=== PATIENT | male | born 1955 | race Caucasian/White ===

== ENCOUNTER 2024-04-19 16:00 | Emergency (ER) | payer OTHER, SELFPAY ==
[2024-04-19 16:04] VITALS: BP 178/95; PULSE 77; TEMP 36.9; O2SAT 97; BMI 31.6
--- NOTE | 2024-04-19 16:24 | CT_ITS ---
[address] [address] Patient Name: MACKENZIE LOONEY MRN: [id number] date: 1955 Sex: M Assigned Patient Location: ER Current Patient Location: Accession/Order Number: [id number] Exam Date: 04/19/2024 17:40 Report Date: 04/19/2024 20:28 At the request of: YENIFER BARAJAS Procedure: CT abdomen pelvis w con EXAM: CT abdomen pelvis w con , 04/19/2024 HISTORY: umbilical pain h/o hernia not able to reduce COMPARISON: None. TECHNIQUE: CT scan of the abdomen and pelvis was performed following intravenous contrast injection. Coronal and sagittal reconstructions were performed. Dose reduction techniques were achieved by using automated exposure control and/or adjustment of mA and/or kV according to patient size and/or use of iterative reconstruction technique. FINDINGS: Moderate sized umbilical hernia is seen measuring 4 x 2 cm in size with stranding within the fatty tissue which could be due to local inflammation. Recommend clinical correlation. No bowel loops are seen within the umbilical hernia. The liver demonstrates subcentimeter hypodensity in the left lobe, likely representing a cyst or small hemangioma. The liver is otherwise unremarkable. Cholelithiasis. No biliary dilatation. The spleen and both adrenal glands are unremarkable. Mild fatty change in the pancreas. Patent portal venous system. Mild atherosclerosis of the abdominal aorta. Unremarkable IVC. Nonobstructing calculi in the left kidney, the largest in the mid calyx measuring measuring 6 mm. No hydronephrosis or hydroureter. Probable subcentimeter cortical cyst upper pole left kidney. Urinary bladder partially filled. Mild prostatic enlargement. Small left inguinal hernia containing fatty tissue. No bowel loop dilatation or bowel wall thickening. Colonic diverticulosis without diverticulitis. Post appendectomy. Trace free fluid in the peritoneal cavity. No enlarged lymph node in the abdomen, retroperitoneum or the pelvis. The bone windows demonstrate moderate disc disease at L5-S1 level. Scans through the lung bases show minimal dependent atelectasis. CT/CT abdomen pelvis w con IMPRESSION: 1. Moderate sized umbilical hernia measuring 4 x 2 cm in size. 2. Cholelithiasis. 3. Nonobstructing left renal calculi. Mild prostatic enlargement. 4. Colonic diverticulosis without diverticulitis. 5. Mild fatty change in the pancreas. Electronically authenticated by: SHADIA INIGUEZ Date: 04/19/2024 20:28
[2024-04-19] MEDS: ONDANSETRON PF 4 MG/2 ML VIAL IV (16:50)
[2024-04-19] MEDS: KETOROLAC TROMETHAMINE 30 MG/ML VIAL IVP (16:50)
[2024-04-19] MEDS: 0.9 % SODIUM CHLORIDE 1,000 ML 100 ML IV (16:50)
[2024-04-19 17:13] LABS: Basophils Absolute Auto 0.1 10^3/uL (0.0-0.1); Basophils Percent Auto 0.4 % (0.2-2.0); Eosinophils Absolute Auto 0.1 10^3/uL (0.0-0.7); Eosinophils Percent Auto 0.6 % (0.9-7.0); Hematocrit 43.7 % (42.0-54.0); Hemoglobin 14.5 g/dL (14.0-18.0); Immature Granulocytes Abs Auto 0.03 10^3/uL (0.00-0.03); Immature Granulocytes Pct Auto 0.3 % (0.0-0.5); Lymphocytes Percent Auto 7.9 % (20.5-60.0); Mean Corpuscular HGB Conc 33.2 g/dL (29.9-35.2); Mean Corpuscular Hemoglobin 28.5 pg (25.9-34.0); Mean Platelet Volume 9.4 fL (9.5-13.5); Monocytes Absolute Auto 1.1 10^3/uL (0.3-0.8); Neutrophils Absolute Auto 9.8 10^3/uL (1.4-6.5); Neutrophils Percent Auto 81.8 % (43.0-75.0); Platelet Count 245 10^3/uL (150-450); Red Blood Count 5.08 10^6/uL (4.70-6.10); Red Cell Distribution Width 12.4 % (11.0-15.0)
[2024-04-19 17:18] LABS: Bilirubin Urine NEGATIVE (NEGATIVE); Blood Urine NEGATIVE (NEGATIVE); Clarity Urine CLEAR (CLEAR); Color Urine LT. YELLOW (YELLOW); Glucose Urine UA NEGATIVE (NEGATIVE); Ketones Urine NEGATIVE (NEGATIVE); Leukocyte Esterase Urine NEGATIVE (NEGATIVE); Nitrite Urine NEGATIVE (NEGATIVE); Protein Urine NEGATIVE (NEG/TRACE); Urobilinogen Urine 0.2 EU/dL (0.2-1.0)
[2024-04-19 17:21] LABS: Urine Microscopic Indicated NO
[2024-04-19 17:28] LABS: Lactate/Lactic Acid 1.4 mmol/L (0.4-2.0)
[2024-04-19 17:34] LABS: Alanine Aminotransferase 39 U/L (16-63); Albumin Globulin Ratio 1.2; Albumin Level 4.1 g/dL (3.4-5.0); Alkaline Phosphatase 56 U/L (46-116); Anion Gap 12.2; Aspartate Amino Transferase 21 U/L (15-37); BUN Creatinine Ratio 11.7; Calcium 9.5 mg/dL (8.5-10.1); Carbon Dioxide 29.7 mmol/L (21.0-32.0); Chloride 102 mmol/L (98-107); Estimated GFR (African America >60 (>=60); Estimated GFR (Non-African Ame >60 (>=60); Globulin 3.4 g/dL; Glucose 127 mg/dL (74-106); Potassium 3.9 mmol/L (3.5-5.1); Sodium 140 mmol/L (136-145); Total Protein 7.5 g/dL (6.4-8.2); Troponin I High Sensitivity 4.5 pg/mL (4.0-76.1)
[2024-04-19 18:24] VITALS: BP 167/75; PULSE 68; O2SAT 96
--- NOTE | 2024-04-19 19:19 | ED.ABDPAIN1 ---
HPI - Abdominal Pain General Chief Complaint: Abdominal Pain Stated Complaint: ABD PAIN Time Seen by Provider: 04/19/24 16:14 Source: patient Mode of arrival: walk-in Limitations: no limitations History of Present Illness HPI narrative: 68-year-old male presents with chief complaint of diffuse abdominal pain and tenderness. Patient has a umbilical hernia he has had for many years. It is easily reduced. He has diffuse abdominal tenderness. He denies a history of vomiting or nausea. She has just diffuse pain. Abdomen soft nontender to palpation. Patient denies diarrhea fever or chills. She denies a history of difficulty with urination or kidney stones. Related Data Home Medications ?Medication ?Instructions ?Recorded ?Confirmed lisinopril 40 mg tablet 40 mg PO DAILY 04/19/24 04/19/24 metoprolol succinate 50 mg 50 mg PO DAILY 04/19/24 04/19/24 tablet,extended release 24 hr omeprazole 20 mg capsule,delayed 20 mg PO DAILY 04/19/24 04/19/24 release simvastatin 40 mg tablet 40 mg PO DAILY 04/19/24 04/19/24 spironolactone 25 mg tablet 25 mg PO DAILY 04/19/24 04/19/24 Allergies Allergy/AdvReac Type Severity Reaction Status Date / Time Penicillins Allergy Severe Rash Verified 04/19/24 16:07 Review of Systems ROS Narrative All Systems are negative except as noted/marked.All systems reviewed and otherwise negative Exam Narrative Exam Narrative: Nurses note and vital signs reviewed and patient is not hypoxic. General: The patient appears well and in no apparent distress. Patient is resting comfortably on cart. Skin: Warm, dry, no pallor noted. There is no rash noted. Head: Normocephalic, atraumatic Eye: Normal conjunctiva, no drainage, EOMI. PERRL Ears, Nose, Mouth, and Throat: oral mucosa is moist. Nares patent. Mouth without vesicles. Ear canals patent. Tm's without Erythema Cardiovascular: Regular Rate and Rhythm Respiratory: Patient is in no distress, no accessory muscle use, lungs are clear to auscultation, no wheezing, rales or rhonchi Back: non-tender, no CVA tenderness bilaterally to percussion. GI: non strangulated umbilical hernia, easily reduced normal bowel sounds, no tenderness to palpation, no masses appreciated. No rebound, guarding, or rigidity noted. Musculoskeletal: The patient has no evidence of calf tenderness, no pitting edema, symmetrical pulses noted bilaterally Neurological: A&O x4, normal speech Psychiatric: Cooperative Constitutional Vital Signs, click to edit/add: Last Vital Signs Temp 98.6 F 04/19/24 20:28 Pulse 72 04/19/24 20:28 Resp 12 04/19/24 20:28 BP 149/73 H 04/19/24 20:28 Pulse Ox 96 04/19/24 20:28 O2 Del Method Room Air 04/19/24 20:28 Course Vital Signs Vital signs: Vital Signs Temperature 98.4 F 04/19/24 16:04 Pulse Rate 77 04/19/24 16:04 Respiratory Rate 20 04/19/24 16:04 Blood Pressure 178/95 H 04/19/24 16:04 Pulse Oximetry 97 04/19/24 16:04 Oxygen Delivery Method Room Air 04/19/24 16:04 Temperature 98.6 F 04/19/24 20:28 Pulse Rate 72 04/19/24 20:28 Respiratory Rate 12 04/19/24 20:28 Blood Pressure 149/73 H 04/19/24 20:28 Pulse Oximetry 96 04/19/24 20:28 Oxygen Delivery Method Room Air 04/19/24 20:28 MDM - Abdominal Pain MDM Narrative Medical decision making narrative: 68-year-old male presents with chief complaint of diffuse abdominal pain and tenderness. Patient has a umbilical hernia he has had for many years. It is easily reduced. He has diffuse abdominal tenderness. He denies a history of vomiting or nausea. She has just diffuse pain. Abdomen soft nontender to palpation. Patient denies diarrhea fever or chills. She denies a history of difficulty with urination or kidney stones. Presented here chief complaint of diffuse abdominal pain and tenderness. Patient has a known history of umbilical hernia. It was able to be reduced here. He had had difficulty reducing at home upon arrival to the emergency room IV was established patient was given Toradol and Zofran. He did help to alleviate his symptoms. CBC BMP urinalysis were obtained and negative. Patient did have a CT scan with contrast. Length of stay was delayed due to the wait for the radiology reading for the CT scan. CT scan did read umbilical hernia nonobstructed. Clinical coordination for his pain. Patient does state he does golf daily. He may have pulled it while golfing. Patient instructed to use Tylenol and Motrin for pain. He is going to follow-up with general surgery. He does not have an acute surgical abdomen at this time. Reasons to return to the emergency room or surgical emergency were discussed. Patient verbalized understanding agrees with plan of care. Differential Diagnosis Differential diagnosis: Likely abdominal pain, constipation, diverticulitis, gastroenteritis and small bowel obstruction Medical Records Attestation: I reviewed the patient's medical records. Lab Data Attestation: I reviewed the patient's lab results. Labs: Lab Results 04/19/24 04/19/24 Range/Units 16:20 16:25 WBC 12.0 H (4.0-11.0) 10^3/uL RBC 5.08 (4.70-6.10) 10^6/uL Hgb 14.5 (14.0-18.0) g/dL Hct 43.7 (42.0-54.0) % MCV 86.0 (80.0-94.0) fL MCH 28.5 (25.9-34.0) pg MCHC 33.2 (29.9-35.2) g/dL RDW 12.4 (11.0-15.0) % Plt Count 245 (150-450) 10^3/uL MPV 9.4 L (9.5-13.5) fL Neut % (Auto) 81.8 H (43.0-75.0) % Lymph % (Auto) 7.9 L (20.5-60.0) % [place] % (Auto) 9.0 (1.7-12.0) % Eos % (Auto) 0.6 L (0.9-7.0) % Baso % (Auto) 0.4 (0.2-2.0) % Neut # (Auto) 9.8 H (1.4-6.5) 10^3/uL Lymph # (Auto) 1.0 L (1.2-3.8) 10^3/uL [place] # (Auto) 1.1 H (0.3-0.8) 10^3/uL Eos # (Auto) 0.1 (0.0-0.7) 10^3/uL Baso # (Auto) 0.1 (0.0-0.1) 10^3/uL Abs Immat Gran (auto) 0.03 (0.00-0.03) 10^3/uL Imm/Tot Granulo (auto) 0.3 (0.0-0.5) % Sodium 140 (136-145) mmol/L Potassium 3.9 (3.5-5.1) mmol/L Chloride 102 (98-107) mmol/L Carbon Dioxide 29.7 (21.0-32.0) mmol/L Anion Gap 12.2 BUN 13.0 (7.0-18.0) mg/dL Creatinine 1.11 (0.70-1.30) mg/dL Est GFR ( Amer) >60 (>=60) Est GFR (Non-Af Amer) >60 (>=60) BUN/Creatinine Ratio 11.7 Glucose 127 H (74-106) mg/dL Lactate 1.4 (0.4-2.0) mmol/L Calcium 9.5 (8.5-10.1) mg/dL Total Bilirubin 1.0 (0.2-1.0) mg/dL AST 21 (15-37) U/L ALT 39 (16-63) U/L Alkaline Phosphatase 56 (46-116) U/L Troponin I High Sens 4.5 (4.0-76.1) pg/mL Total Protein 7.5 (6.4-8.2) g/dL Albumin 4.1 (3.4-5.0) g/dL Globulin 3.4 g/dL Albumin/Globulin Ratio 1.2 Lipase 17.0 (16.0-77.0) U/L Urine Color Lt. yellow (YELLOW) Urine Clarity Clear (CLEAR) Urine pH 6.0 (5.0-9.0) Ur Specific [place] 1.010 (1.005-1.025) Urine Protein Negative (NEG/TRACE) mg/dL Urine Glucose (UA) Negative (NEGATIVE) mg/dL Urine Ketones Negative (NEGATIVE) mg/dL Urine Occult Blood Negative (NEGATIVE) Urine Nitrite Negative (NEGATIVE) Urine Bilirubin Negative (NEGATIVE) Urine Urobilinogen 0.2 (0.2-1.0) EU/dL Ur Leukocyte Esterase Negative (NEGATIVE) Imaging Data CT scan - abdomen: Radiologist's impression: ITS Impressions Abdomen/Pelvis CT 04/19/24 16:24 IMPRESSION: 1. Moderate sized umbilical hernia measuring 4 x 2 cm in size. 2. Cholelithiasis. 3. Nonobstructing left renal calculi. Mild prostatic enlargement. 4. Colonic diverticulosis without diverticulitis. 5. Mild fatty change in the pancreas. Electronically authenticated by: SHADIA INIGUEZ Date: 04/19/2024 20:28 Discharge Plan Discharge Stand Alone Forms: Portal Instructions Chief Complaint: Abdominal Pain Clinical Impression: Umbilical pain, Umbilical hernia without mention of obstruction or gangrene Patient Disposition: Home, Self-Care Time of Disposition Decision: 20:40 Condition: Good Prescriptions / Home Meds: No Action lisinopril 40 mg tablet 40 mg PO DAILY metoprolol succinate 50 mg tablet extended release 24 hr 50 mg PO DAILY omeprazole 20 mg capsule,delayed release(DR/EC) 20 mg PO DAILY simvastatin 40 mg tablet 40 mg PO DAILY spironolactone 25 mg tablet 25 mg PO DAILY Print Language: Omani Instructions: Umbilical Hernia (ED) Referrals: Lisette Rivera MD [Primary Care Provider] - 1 week Raul Renae MD [Physician] - 1 week
[2024-04-19 20:28] VITALS: BP 149/73; PULSE 72; TEMP 37; O2SAT 96
[2024-04-19] MEDS: MORPHINE SULFATE 2 MG/ML SYRINGE IV (20:50)
== END 2024-04-19 21:05 | disposition home or self-care (01) ==
PROVIDERS: Physician Assistant; Emergency Provider Emergency Medicine; PCP Family Medicine
DX: R10.33 Periumbilical pain (principal); K42.9 Umbilical hernia without obstruction or gangrene
CPT/HCPCS: 36415; 74177; 80053; 81003; 83605; 83690; 84484; 85025; 96374; 96375; 99285; J1885; J2270; J2405; Q9967

== ENCOUNTER 2024-04-24 16:46 | Inpatient (IN) | payer OTHER, SELFPAY ==
[2024-04-24] VITALS (43 sets, daily range): BP systolic 123–194; BP diastolic 65–102; PULSE 77–101; TEMP 37.1; O2SAT 88–97; BMI 31.3; BMI 31.6
--- OUTSIDE RECORDS SUMMARY | 2024-04-24 16:53 | XMS_ITS | CCD ---
Author Organization [facility] Care Team Providers Care Knotter Hand Name Role Phone REQUEST, DR NONE LISTED Attending Unavaila ble REQUEST, NONE LISTED Consulting Unavaila ble REQUEST, NONE LISTED Admitting Unavaila ble EARNEST DIETZ Attending Unavailable MIRELA, EARNEST Consulting Unavailable ROSS, EARNEST Admitting Unavailable CASTILLO, DR MELANI Wyatt Attending Unavailable CASTILLO, DR MELANI Wyatt Consulting Unavailable CASTILLO, DR MELANI Wyatt Admitting Unavailable NILL, Raul Lora Attending Unavailable NILL, Raul Lora Attending Unavailable Allergies Allergy Classification Reported Allergen(s) Allergy Type Date of Onset Reaction(s) Facility Penicillins (antibiotic) (1 source) Penicillins Drug Allergy [address] [facility] Repository (1 source) Penicillins; Translations: [penicillins] Propensity to adverse reactions (disorder) [facility] Repository Results Test Name Value Interpretation Reference Range [facility] L[facility]FILE[facility] 03-20-2021 CHOL-HDL RATIO NORM SEE BELOW Normal [facility] Comment on above: Result Comment: 3.3 - 4.4 LOW RISK 4.4 - 7.1 AVERAGE RISK 7.1 - 11.0 MODERATE RISK >11.0 HIGH RISK Performed By: #### L IPID, PSAD #### [facility] [address], [place] [address] Luis Eduardo Ada Cholesterol [Mass/Vol] 129 mg/dL Normal <=200 [facility] Comment on above: Performed By: #### L IPID, PSAD #### [facility] [address], [place] [address] Luis Eduardo Ada Cholesterol in HDL [Mass/Vol] 40 mg/dL Normal [facility] Comment on above: Performed By: #### L IPID, PSAD #### [facility] [address], [place] [address] Luis Eduardo Ada Cholesterol in LDL [Mass/Vol] 68.4 mg/dL Normal [facility] Comment on above: Performed By: #### L IPID, PSAD #### [facility] [address] [place] [id number] Luis Eduardo Ada Cholesterol.total/C holesterol in HDL [Mass ratio] 3.2 {ratio} Normal [facility] Comment on above: Performed By: #### L IPID, PSAD #### [facility] [address] [place] [id number] Luis Eduardo Ada HDL NORMAL > or = 60 mg/dl - LO W CARDIOVASCULAR RISK <40 mg/dl - HIGH CARDIOVASCULAR RISK Normal [facility] Comment on above: Performed By: #### L IPAUSTYN, PSAD #### [facility] [address] [place] [id number] Luis Eduardo Ada LDL CALC NORMAL SEE BELOW Normal [facility] Comment on above: Result Comment: <100 mg/dl OPTIMAL 100 - 129 mg/dl NEAR OR ABOVE OPTIMAL 130 - 159 mg/dl BORDERLINE HIGH 160 - 189 mg/dl HIGH >190 mg/dl VERY HIGH Performed By: #### L IPID, PSAD #### [facility] [address] [place] [id number] Luis Eduardo Ada Triglyceride [Mass/Vol] 103 mg/dL Normal <=150 [facility] Comment on above: Performed By: #### L IPID, PSAD #### [facility] [address] [place] [id number] Luis Eduardo Ada VLDL CALC 20.6 mg/dL Normal [facility] Comment on above: Performed By: #### L IPID, PSAD #### [facility] [address] [place] [id number] Luis Eduardo Ada Encounters Encounter Date Encounter Type Care Provider Facility Start: 05-20-2024 ambulatory Raul DE LOS SANTOS Facility :[facility] Start: 04-30-2024 ambulatory Raul DE LOS SANTOS Facility :[facility] Start: 04-20-2024 ambulatory Raul DE LOS SANTOS Facility:[facility] Start: 03-20-2021 End: 03-21-[address] MELANI CASTILLO Facility:[facility] Start: 12-29-2020 End: 12-30-2020 ambulatory EARNEST DIETZ Facility:[facility] Start: 12-09-2020 End: 12-10-2020 ambulatory NONE LISTED REQUEST Facility:[facility] Procedures Date Procedure Procedure Detail Performing Clinician Start: 03-20-[address] MADRID L ISTED REQUEST Comment on above: Performed By: #### L IPID, PSAD #### [facility] [address], [place] [address] Luis Eduardo Caballero Payers Date Payer Category Payer Medicare [id number] Self-pay 1955 Unknown [id number] 1955 Unknown [id number] [id number] Unknown [id number] 2.16.84 [id number] Unknown [id number] 2.16.84 [id number] Unknown [id number] 2.16.84 [id number] Summary Purpose Family History No Family History Records FoundNo Family History Records Found Advance Directives No Advanced Directives Records FoundNo Advanced Directives Records Found Additional Source Comments (unrecognized sect ion and content) No Status Records FoundNo Status Records Found INFORMATION SOURCE (unrecogn ized section and content) DATE CREATED AUTHOR 03/21/2021 [facility] DATE CREATED AUTHOR AUTHOR'S ORGANIZ ATION 04/24/2024 [facility] FOR RECORDS PERTAINING TO PATIENTS WHO ARE OR HAVE BEEN ENROLLED IN A CHEMICAL DEPENDENCY/SUBSTANCEABUSE PROGRAM, SOME INFORMATION MAY BE OMITTED. This clinical summary was aggregated from multiple sources. Caution should be exercised in using it in the provision of clinical care. This summary normalizes information from multiple sources, and as a consequence, information in this document may materially change the coding, format and clinical context of patient data. In addition, data may be omitted in some cases. CLINICAL DECISIONS SHOULD BE BASED ON THE PRIMARY CLINICAL RECORDS. [email or web address] provides no warranty or guarantee of the accuracy or completeness of information in this document.
--- NOTE | 2024-04-24 17:01 | ECG_ITS ---
[facility] Test Date: 2024-04-24 Pat Name: MACKENZIE LOONEY Department: Room: - Gender: Male Surgical Clinical Reviewer: : 1955 Requested By: MELANI CASTILLO Order Number: [id number] Reading MD: EMEYL MITCHELL Measurements Intervals [place] Rate: 78 P: 30 KS: 170 QRS: 46 QRSD: 88 T: 44 QT: 354 QTc: 387 Interpretive Statements 1100 Sinus rhythm 9110 normal ECG No previous ECG available for comparison Electronically Signed On 04-24-2024 18:36:04 EDT by EMELY MITCHELL
[2024-04-24] MEDS: ONDANSETRON PF 4 MG/2 ML VIAL IV (17:15)
[2024-04-24] MEDS: KETOROLAC TROMETHAMINE 30 MG/ML VIAL 15 MG IVP (17:15)
[2024-04-24] MEDS: 0.9 % SODIUM CHLORIDE 1,000 ML 999 ML IV (17:15)
[2024-04-24] MEDS: FAMOTIDINE/PF 20 MG/2 ML VIAL IV (17:15)
[2024-04-24 17:20] LABS: Hematocrit 42.9 % (42.0-54.0); Hemoglobin 14.2 g/dL (14.0-18.0); Mean Corpuscular HGB Conc 33.1 g/dL (29.9-35.2); Mean Corpuscular Hemoglobin 28.3 pg (25.9-34.0); Mean Corpuscular Volume 85.5 fL (80.0-94.0); Mean Platelet Volume 9.5 fL (9.5-13.5); Platelet Count 236 10^3/uL (150-450); Red Blood Count 5.02 10^6/uL (4.70-6.10); Red Cell Distribution Width 12.3 % (11.0-15.0); White Blood Count 11.9 10^3/uL (4.0-11.0)
--- NOTE | 2024-04-24 17:24 | ED.GENADUL1 ---
Documented by User: TRES Arora 04/24/24 21:28 HPI HPI - General Adult General Chief complaint: Abdominal Pain Stated complaint: abdominal pain Time Seen by Provider: 04/24/24 16:47 Source: patient Mode of arrival: walk-in History of Present Illness HPI narrative: Patient is a 68-year-old male presents to the ER with concerns of abdominal pain over the last 24 hours. His last meal was at noon. Patient states he has diffuse abdominal pain which he believes is related to his umbilical hernia that he has had for years. Patient states he was recently seen in the ER with a CT scan and had improvement after given IV pain medication. He is awaiting follow-up with his general surgeon on , but they are unable to prescribe him any medication until they see him in person. Patient states he was reluctant to return to the ER but has continued pain, nausea and a couple bouts of vomiting. Patient reports bowel movements have been regular. Denies any blood in his stool but does have hemorrhoids that become irritated from time to time. Patient denies any chest pain or shortness of breath. His pain appears localized to the right upper quadrant and epigastric on bedside evaluation. Patient notes symptoms are worse with standing. Location: Reports abdomen Radiation: Reports abdomen Severity: moderate Quality: Reports aching Pain Consistency: Reports constant Related Data Home Medications ?Medication ?Instructions ?Recorded ?Confirmed lisinopril 40 mg tablet 40 mg PO DAILY 04/19/24 04/19/24 metoprolol succinate 50 mg 50 mg PO DAILY 04/19/24 04/19/24 tablet,extended release 24 hr omeprazole 20 mg capsule,delayed 20 mg PO DAILY 04/19/24 04/19/24 release simvastatin 40 mg tablet 40 mg PO DAILY 04/19/24 04/19/24 spironolactone 25 mg tablet 25 mg PO DAILY 04/19/24 04/19/24 Allergies Allergy/AdvReac Type Severity Reaction Status Date / Time Penicillins Allergy Severe Rash Verified 04/19/24 16:07 Opioid HPI Opioid Management Most Recent Opioid Data: Last Pain Scale 2 04/24/24 18:17 Last ED Pain Assessment 04/24/24 18:17 Last MAR Pain Assessment 04/24/24 17:15 Review of Systems ROS Constitutional Denies: fever or chills Eyes Denies: change in vision Ears, nose, mouth, and throat Denies: throat pain, neck pain or throat swelling Cardiovascular Denies: chest pain, palpitations or edema Respiratory Denies: shortness of breath, cough or wheezing Gastrointestinal Reports: abdominal pain, nausea and vomiting; Denies: coffee grounds in vomit or constipation Genitourinary Denies: painful urination or urinary frequency Musculoskeletal Denies: back pain or neck pain Integumentary/Breast Denies: rash or itching Neurological Denies: headache or numbness in extremities Psychiatric Denies: anxiety or mood swings Exam Narrative Exam Narrative: Nurses notes and vital signs reviewed and patient is not hypoxic. General: The patient appears uncomfortable holding emesis basin. Patient is resting comfortably on cart. Increased pain with position change Skin: Warm, dry, no pallor noted. No evidence of rash Head: Normocephalic, atraumatic Neck: Supple, trachea mid-line, no tenderness, no lymphadenopathy Eye: Pupils are equal, round and reactive to light, EOMI Ears, Nose, Mouth, and Throat: TM are clear, normal light reflex, oral mucosa is moist, no posterior oropharynx erythema or hypertrophy, uvula is mid-line Cardiovascular: Regular Rate and Rhythm Respiratory: Patient is in no distress, no accessory muscle use, lungs are clear to auscultation, no wheezing, rales or rhonchi. Chest Wall: no tenderness Back: non-tender, no CVA tenderness Musculoskeletal: normal ROM, no tenderness, no swelling GI: Normal bowel sounds, notable tenderness to epigastric and right upper quadrant. Positive Donahue sign. Easily reducible umbilical hernia noted without focal tenderness or rigidity. No masses appreciated. No rebound, positive guarding, Neurological: A&O x4 Psychiatric: Cooperative Constitutional Vital Signs, click to edit/add: Last Vital Signs Temp 98.8 F 04/24/24 16:49 Pulse 99 H 04/24/24 21:50 Resp 28 H 04/24/24 21:40 BP 144/69 H 04/24/24 21:30 Pulse Ox 94 L 04/24/24 21:50 O2 Del Method Room Air 04/24/24 19:30 Course Vital Signs Vital signs: Vital Signs Temperature 98.8 F 04/24/24 16:49 Pulse Rate 78 04/24/24 16:49 Respiratory Rate 22 H 04/24/24 16:49 Blood Pressure 168/80 H 04/24/24 16:49 Pulse Oximetry 96 04/24/24 16:49 Oxygen Delivery Method Room Air 04/24/24 16:49 Temperature 98.8 F 04/24/24 16:49 Pulse Rate 99 H 04/24/24 21:50 Respiratory Rate 28 H 04/24/24 21:40 Blood Pressure 144/69 H 04/24/24 21:30 Pulse Oximetry 94 L 04/24/24 21:50 Oxygen Delivery Method Room Air 04/24/24 19:30 Medical Decision Making MDM Narrative Medical decision making narrative: Laid supine, noted to have pain with position change to the abdomen. Patient was placed in Trendelenburg with gentle massage to the chest which was soft, easily reducible and without significant pain. Patient had a more notable pain to the epigastric region and right upper quadrant. Medicated with IV Toradol. Previous CT noted for cholelithiasis. He denies fever. Patient reevaluated, noted pain improved to 2/10 denied the need for any more pain medication. Patient advised we related on his lab results to all return. Patient appears much more comfortable. Labs noted for diffuse elevation of liver enzymes. Will attempt a gallbladder ultrasound given prior cholelithiasis noted on CT scan. Medical Records Medical records reviewed: Yes I reviewed the patient's medical records Medical records narrative: CTA of the abdomen on 04/19/2024 shows a moderate-sized umbilical hernia measuring 4 x 2 cm in size., Cholelithiasis, nonobstructing left renal calculi and mild prostatic enlargement. Patient has colonic diverticulosis without diverticulitis. Mild fatty change in the pancreas. Lab Data Labs: Lab Results 04/24/24 04/24/24 Range/Units 17:00 17:10 WBC 11.9 H (4.0-11.0) 10^3/uL RBC 5.02 (4.70-6.10) 10^6/uL Hgb 14.2 (14.0-18.0) g/dL Hct 42.9 (42.0-54.0) % MCV 85.5 (80.0-94.0) fL MCH 28.3 (25.9-34.0) pg MCHC 33.1 (29.9-35.2) g/dL RDW 12.3 (11.0-15.0) % Plt Count 236 (150-450) 10^3/uL MPV 9.5 (9.5-13.5) fL Seg Neuts % (Manual) 84.0 H (43.0-75.0) Band Neutrophils % 8.0 H (0-5) % Lymphocytes % (Manual) 6.0 L (20.5-60.0) % Monocytes % (Manual) 2.0 (1.7-12.0) % Eosinophils % (Manual) 0.0 L (0.9-7.0) % Basophils % (Manual) 0.0 L (0.2-2.0) % Neutrophils # (Manual) 9.99 H (1.4-6.5) 10^3/uL Band Neutrophils # 1.0 H (0.0-0.3) 10^3/uL Lymphocytes # (Manual) 0.71 L (1.20-3.80) 10^3/uL Monocytes # (Manual) 0.23 L (0.30-0.80) 10^3/uL Eosinophils # (Manual) 0.00 (0.00-0.70) 10^3/uL Basophils # (Manual) 0.00 (0.00-0.10) 10^3/uL Sodium 139 (136-145) mmol/L Potassium 4.3 (3.5-5.1) mmol/L Chloride 100 (98-107) mmol/L Carbon Dioxide 27.3 (21.0-32.0) mmol/L Anion Gap 16.0 BUN 12.0 (7.0-18.0) mg/dL Creatinine 1.04 (0.70-1.30) mg/dL Est GFR ( Amer) >60 (>=60) Est GFR (Non-Af Amer) >60 (>=60) BUN/Creatinine Ratio 11.5 Glucose 118 H (74-106) mg/dL Lactate 1.1 (0.4-2.0) mmol/L Calcium 9.9 (8.5-10.1) mg/dL Total Bilirubin 3.7 H (0.2-1.0) mg/dL AST 1449 H* (15-37) U/L ALT 1609 H* (16-63) U/L Alkaline Phosphatase 250 H (46-116) U/L Troponin I High Sens <4.0 L (4.0-76.1) pg/mL Total Protein 8.2 (6.4-8.2) g/dL Albumin 3.8 (3.4-5.0) g/dL Globulin 4.4 g/dL Albumin/Globulin Ratio 0.9 Lipase 25.0 (16.0-77.0) U/L Urine Color Dk. yellow (YELLOW) Urine Clarity Clear (CLEAR) Urine pH 6.0 (5.0-9.0) Ur Specific [place] 1.025 (1.005-1.025) Urine Protein Negative (NEG/TRACE) mg/dL Urine Glucose (UA) Negative (NEGATIVE) mg/dL Urine Ketones Negative (NEGATIVE) mg/dL Urine Occult Blood Negative (NEGATIVE) Urine Nitrite Negative (NEGATIVE) Urine Bilirubin Moderate A (NEGATIVE) Urine Urobilinogen 1.0 (0.2-1.0) EU/dL Ur Leukocyte Esterase Negative (NEGATIVE) Acetaminophen <2.0 L (10.0-30.0) ug/mL Imaging Data Gallbladder ultrasound: Radiologist's impression: ITS Impressions Chest X-Ray 04/24/24 17:31 IMPRESSION: Atelectasis/scarring right lung base otherwise unremarkable chest x-ray. No infiltrate or edema. Electronically authenticated by: ROSA ORO Date: 04/24/2024 18:32 Upper Quadrant Ultrasound 04/24/24 19:17 IMPRESSION: 1. Cholelithiasis with mild wall thickness could be from cholecystitis, however ultrasound Donahue sign is absent. Recommend clinical correlation. 2. No biliary dilatation. Electronically authenticated by: SHADIA INIGUEZ Date: 04/24/2024 22:25 ECG Data Attestation: I personally reviewed and interpreted this ECG as follows: Interpretation: EKG interpretation: Emergency Department physician interpretation, normal sinus rhythm 78 bpm, no ectopy, no ST segment elevation, normal axis. Discharge Plan Discharge Chief Complaint: Abdominal Pain Clinical Impression: Elevated liver enzymes, Abdominal pain, Acute cholecystitis Patient Disposition: Admitted As Inpatient Time of Disposition Decision: 22:42 Condition: Good Documented by User: Jp Ho MD 04/24/24 22:44 HPI HPI - General Adult General Chief complaint: Abdominal Pain Stated complaint: abdominal pain Time Seen by Provider: 04/24/24 16:47 Related Data Home Medications ?Medication ?Instructions ?Recorded ?Confirmed lisinopril 40 mg tablet 40 mg PO DAILY 04/19/24 04/19/24 metoprolol succinate 50 mg 50 mg PO DAILY 04/19/24 04/19/24 tablet,extended release 24 hr omeprazole 20 mg capsule,delayed 20 mg PO DAILY 04/19/24 04/19/24 release simvastatin 40 mg tablet 40 mg PO DAILY 04/19/24 04/19/24 spironolactone 25 mg tablet 25 mg PO DAILY 04/19/24 04/19/24 Allergies Allergy/AdvReac Type Severity Reaction Status Date / Time Penicillins Allergy Severe Rash Verified 04/19/24 16:07 Opioid HPI Opioid Management Most Recent Opioid Data: Last Pain Scale 2 04/24/24 18:17 Last ED Pain Assessment 04/24/24 18:17 Last MAR Pain Assessment 04/24/24 17:15 Exam Constitutional Vital Signs, click to edit/add: Last Vital Signs Temp 98.8 F 04/24/24 16:49 Pulse 99 H 04/24/24 21:50 Resp 28 H 04/24/24 21:40 BP 144/69 H 04/24/24 21:30 Pulse Ox 94 L 04/24/24 21:50 O2 Del Method Room Air 04/24/24 19:30 Course Vital Signs Vital signs: Vital Signs Temperature 98.8 F 04/24/24 16:49 Pulse Rate 78 04/24/24 16:49 Respiratory Rate 22 H 04/24/24 16:49 Blood Pressure 168/80 H 04/24/24 16:49 Pulse Oximetry 96 04/24/24 16:49 Oxygen Delivery Method Room Air 04/24/24 16:49 Temperature 98.8 F 04/24/24 16:49 Pulse Rate 99 H 04/24/24 21:50 Respiratory Rate 28 H 04/24/24 21:40 Blood Pressure 144/69 H 04/24/24 21:30 Pulse Oximetry 94 L 04/24/24 21:50 Oxygen Delivery Method Room Air 04/24/24 19:30 Medical Decision Making MDM Narrative Medical decision making narrative: Laid supine, noted to have pain with position change to the abdomen. Patient was placed in Trendelenburg with gentle massage to the chest which was soft, easily reducible and without significant pain. Patient had a more notable pain to the epigastric region and right upper quadrant. Medicated with IV Toradol. Previous CT noted for cholelithiasis. He denies fever. Patient reevaluated, noted pain improved to 2/10 denied the need for any more pain medication. Patient advised we related on his lab results to all return. Patient appears much more comfortable. Labs noted for diffuse elevation of liver enzymes. Will attempt a gallbladder ultrasound given prior cholelithiasis noted on CT scan. JK 10:45pm LFTs are elevated and the gallbladder ultrasound shows thickened wall. No evidence of stone in the bile duct system. Case discussed with Dr. Nix and the patient will be admitted here and be given IV antibiotics and pain control. Reevaluation in the morning. Treatment diagnosis and disposition were discussed with the patient and his family. Differential Diagnosis Differential Diagnosis: Acute cholecystitis, pancreatitis, hepatitis Lab Data Lab results reviewed: Yes I reviewed the patient's lab results Labs: Lab Results 04/24/24 04/24/24 Range/Units 17:00 17:10 WBC 11.9 H (4.0-11.0) 10^3/uL RBC 5.02 (4.70-6.10) 10^6/uL Hgb 14.2 (14.0-18.0) g/dL Hct 42.9 (42.0-54.0) % MCV 85.5 (80.0-94.0) fL MCH 28.3 (25.9-34.0) pg MCHC 33.1 (29.9-35.2) g/dL RDW 12.3 (11.0-15.0) % Plt Count 236 (150-450) 10^3/uL MPV 9.5 (9.5-13.5) fL Seg Neuts % (Manual) 84.0 H (43.0-75.0) Band Neutrophils % 8.0 H (0-5) % Lymphocytes % (Manual) 6.0 L (20.5-60.0) % Monocytes % (Manual) 2.0 (1.7-12.0) % Eosinophils % (Manual) 0.0 L (0.9-7.0) % Basophils % (Manual) 0.0 L (0.2-2.0) % Neutrophils # (Manual) 9.99 H (1.4-6.5) 10^3/uL Band Neutrophils # 1.0 H (0.0-0.3) 10^3/uL Lymphocytes # (Manual) 0.71 L (1.20-3.80) 10^3/uL Monocytes # (Manual) 0.23 L (0.30-0.80) 10^3/uL Eosinophils # (Manual) 0.00 (0.00-0.70) 10^3/uL Basophils # (Manual) 0.00 (0.00-0.10) 10^3/uL Sodium 139 (136-145) mmol/L Potassium 4.3 (3.5-5.1) mmol/L Chloride 100 (98-107) mmol/L Carbon Dioxide 27.3 (21.0-32.0) mmol/L Anion Gap 16.0 BUN 12.0 (7.0-18.0) mg/dL Creatinine 1.04 (0.70-1.30) mg/dL Est GFR ( Amer) >60 (>=60) Est GFR (Non-Af Amer) >60 (>=60) BUN/Creatinine Ratio 11.5 Glucose 118 H (74-106) mg/dL Lactate 1.1 (0.4-2.0) mmol/L Calcium 9.9 (8.5-10.1) mg/dL Total Bilirubin 3.7 H (0.2-1.0) mg/dL AST 1449 H* (15-37) U/L ALT 1609 H* (16-63) U/L Alkaline Phosphatase 250 H (46-116) U/L Troponin I High Sens <4.0 L (4.0-76.1) pg/mL Total Protein 8.2 (6.4-8.2) g/dL Albumin 3.8 (3.4-5.0) g/dL Globulin 4.4 g/dL Albumin/Globulin Ratio 0.9 Lipase 25.0 (16.0-77.0) U/L Urine Color Dk. yellow (YELLOW) Urine Clarity Clear (CLEAR) Urine pH 6.0 (5.0-9.0) Ur Specific [place] 1.025 (1.005-1.025) Urine Protein Negative (NEG/TRACE) mg/dL Urine Glucose (UA) Negative (NEGATIVE) mg/dL Urine Ketones Negative (NEGATIVE) mg/dL Urine Occult Blood Negative (NEGATIVE) Urine Nitrite Negative (NEGATIVE) Urine Bilirubin Moderate A (NEGATIVE) Urine Urobilinogen 1.0 (0.2-1.0) EU/dL Ur Leukocyte Esterase Negative (NEGATIVE) Acetaminophen <2.0 L (10.0-30.0) ug/mL Imaging Data Gallbladder ultrasound: Radiologist's impression: ITS Impressions Chest X-Ray 04/24/24 17:31 IMPRESSION: Atelectasis/scarring right lung base otherwise unremarkable chest x-ray. No infiltrate or edema. Electronically authenticated by: ROSA ORO Date: 04/24/2024 18:32 Upper Quadrant Ultrasound 04/24/24 19:17 IMPRESSION: 1. Cholelithiasis with mild wall thickness could be from cholecystitis, however ultrasound Donahue sign is absent. Recommend clinical correlation. 2. No biliary dilatation. Electronically authenticated by: SHADIA INIGUEZ Date: 04/24/2024 22:25 Discharge Plan Discharge Chief Complaint: Abdominal Pain Clinical Impression: Elevated liver enzymes, Abdominal pain, Acute cholecystitis Patient Disposition: Admitted As Inpatient Time of Disposition Decision: 22:42 Condition: Good
--- NOTE | 2024-04-24 17:31 | XR_ITS ---
The [address] [address] Patient Name: MACKENZIE LOONEY MRN: [id number] date: 1955 Sex: M Assigned Patient Location: ER Current Patient Location: ER Accession/Order Number: [id number] Exam Date: 04/24/2024 17:46 Report Date: 04/24/2024 18:32 At the request of: KIARA LOONEY Procedure: XR chest 1V EXAM: XR chest 1V HISTORY: epigastric abdominal pain COMPARISON: CT abdomen pelvis including the lower chest 04/19/2024. TECHNIQUE: AP upright chest x-ray. FINDINGS: Lungs clear except for linear density right lung base most consistent with atelectasis/scarring. No consolidation or edema. Heart size normal for technique and accentuated by magnification. No pleural effusion or pneumothorax. No free air under either diaphragm. XR/XR chest 1V IMPRESSION: Atelectasis/scarring right lung base otherwise unremarkable chest x-ray. No infiltrate or edema. Electronically authenticated by: ROSA ORO Date: 04/24/2024 18:32
[2024-04-24 18:02] LABS: Bilirubin Urine MODERATE (NEGATIVE); Blood Urine NEGATIVE (NEGATIVE); Clarity Urine CLEAR (CLEAR); Color Urine DK. YELLOW (YELLOW); Glucose Urine UA NEGATIVE (NEGATIVE); Ketones Urine NEGATIVE (NEGATIVE); Leukocyte Esterase Urine NEGATIVE (NEGATIVE); Nitrite Urine NEGATIVE (NEGATIVE); Protein Urine NEGATIVE (NEG/TRACE); Specific Gravity Urine 1.025 (1.005-1.025)
[2024-04-24 18:06] LABS: Urine Microscopic Indicated NO
[2024-04-24 18:57] LABS: Lactate/Lactic Acid 1.1 mmol/L (0.4-2.0)
[2024-04-24 19:10] LABS: Albumin Globulin Ratio 0.9; Albumin Level 3.8 g/dL (3.4-5.0); Alkaline Phosphatase 250 U/L (46-116); BUN Creatinine Ratio 11.5; Bilirubin Total 3.7 mg/dL (0.2-1.0); Calcium 9.9 mg/dL (8.5-10.1); Carbon Dioxide 27.3 mmol/L (21.0-32.0); Chloride 100 mmol/L (98-107); Estimated GFR (African America >60 (>=60); Estimated GFR (Non-African Ame >60 (>=60); Globulin 4.4 g/dL; Glucose 118 mg/dL (74-106); Lymphocytes Absolute Manual 0.71 10^3/uL (1.20-3.80); Monocytes Absolute Manual 0.23 10^3/uL (0.30-0.80); Potassium 4.3 mmol/L (3.5-5.1); Segmented Neut Absolute Manual 9.99 10^3/uL (1.4-6.5); Sodium 139 mmol/L (136-145); Total Protein 8.2 g/dL (6.4-8.2); Troponin I High Sensitivity <4.0 pg/mL (4.0-76.1)
[2024-04-24 19:13] LABS: Alanine Aminotransferase 1609 U/L (16-63); Aspartate Amino Transferase 1449 U/L (15-37)
--- NOTE | 2024-04-24 19:17 | US_ITS ---
The [address] [address] Patient Name: MACKENZIE LOONEY MRN: [id number] date: 1955 Sex: M Assigned Patient Location: ER Current Patient Location: ED.MAIN Accession/Order Number: [id number] Exam Date: 04/24/2024 20:00 Report Date: 04/24/2024 22:25 At the request of: KIARA LOONEY Procedure: US right upper quadrant EXAM: US right upper quadrant , 04/24/2024 HISTORY: RUQ pain, elevated liver enzymes COMPARISON: CT scan of the abdomen and pelvis from 04/19/2024. TECHNIQUE: Multiplanar grayscale and color ultrasound imaging of the right upper abdomen was performed. FINDINGS: The liver demonstrates normal echotexture without obvious focal mass lesion. No biliary dilatation. Patent portal vein with hepatopetal flow. The left lobe liver was suboptimally visualized due to overlying bowel gas. The common bile duct measures 6 mm. The gallbladder is well visualized and demonstrates echogenic focus with shadowing consistent with gallstones. Mild echogenic sludge within the gallbladder as well. Borderline gallbladder wall thickening measuring 4 mm. The ultrasound Donahue sign was absent. The right kidney measures 11.5 x 5 x 5.2 cm with normal echotexture. The pancreas was suboptimally visualized due to overlying bowel gas. US/US right upper quadrant IMPRESSION: 1. Cholelithiasis with mild wall thickness could be from cholecystitis, however ultrasound Donahue sign is absent. Recommend clinical correlation. 2. No biliary dilatation. Electronically authenticated by: SHADIA INIGUEZ Date: 04/24/2024 22:25
--- NOTE | 2024-04-24 19:37 | PC.NURSE ---
pt's sp02 consistantly at 88%. 2L NC O2 applied and now spo2 is 95%
[2024-04-24 20:13] LABS: Acetaminophen <2.0 ug/mL (10.0-30.0)
[2024-04-24] MEDS: PIPERACILLIN SODIUM/TAZOBACTAM 3.375 GM in 0.9 % SODIUM CHLORIDE 50 ML IV (23:05)
--- OUTSIDE RECORDS SUMMARY | 2024-04-24 23:34 | XMS_ITS | CCD ---
Author Organization [facility] Care Team Providers Care Credit Authorizer Name Role Phone REQUEST, DR NONE LISTED [...] (1 source) Penicillins Drug Allergy 7 [facility] (1 source) Penicillins; Translations: [penicillins] Propensity to adverse reactions (disorder) [facility] Repository Results Test Name Value Interpretation Reference Range [facility] 03-20-2021 CHOL-HDL RATIO NORM SEE BELOW Normal [facility] Comment on above: Result Comment: 3.3 - 4.4 LOW RISK 4.4 - 7.1 AVERAGE RISK 7.1 - 11.0 MODERATE RISK >11.0 HIGH RISK Performed By: #### L IPID, PSAD #### [facility] [address] [place], [place] [address] Luis Eduardo Ada Cholesterol [Mass/Vol] 129 mg/dL Normal <=200 [facility] Comment on above: Performed By: #### L IPID, PSAD #### [facility] [address] [place], [place] [address] Luis Eduardo Ada Cholesterol in HDL [Mass/Vol] 40 mg/dL Normal [facility] Comment on above: Performed By: #### L IPID, PSAD #### [facility] [address] [place], [place] [address] Luis Eduardo Ada Cholesterol in LDL [Mass/Vol] 68.4 mg/dL Normal [facility] Comment on above: Performed By: #### L IPID, PSAD #### [facility] [address] [place] [id number] Luis Eduardo Ada Cholesterol.total/C holesterol in HDL [Mass ratio] 3.2 {ratio} Normal [facility] Comment on above: Performed By: #### L IPID, PSAD #### [facility] [address] [place] [id number] Luis Eduardo Ada HDL NORMAL > or = 60 mg/dl - LO W CARDIOVASCULAR RISK <40 mg/dl - HIGH CARDIOVASCULAR RISK Normal [facility] Comment on above: Performed By: #### L IPAUSTYN, PSAD #### [facility] [address] [place] [id number] Luis Eduardo Ada LDL CALC NORMAL SEE BELOW Normal [facility] Comment on above: Result Comment: <100 mg/dl OPTIMAL 100 - 129 mg/dl NEAR OR ABOVE OPTIMAL 130 - 159 mg/dl BORDERLINE HIGH 160 - 189 mg/dl HIGH >190 mg/dl VERY HIGH Performed By: #### L IPID, PSAD #### [facility] [address] [place] [id number] Luis Eduardo Ada Triglyceride [Mass/Vol] 103 mg/dL Normal <=150 [facility] Comment on above: Performed By: #### L IPID, PSAD #### [facility] [address] [place] [id number] Luis Eduardo Ada VLDL CALC 20.6 mg/dL Normal [facility] Comment on above: Performed By: #### L IPID, PSAD #### [facility] [address] [place] [id number] Luis Eduardo Ada Encounters Encounter Date Encounter [...] Performed By: #### L IPID, PSAD #### [facility] [address] [place], [place] [address] Luis Eduardo Caballero Payers Date Payer Category Payer Medicare [id number] 1958 Self-pay 1955 Unknown [id number] 1955 Unknown [id number] [id number] Unknown [id number] [id number] Unknown [id number] 2.16.84 [id number] Unknown [id number] [id number] Summary Purpose Family History No Family History Records FoundNo Family History Records Found Advance Directives No Advanced Directives Records FoundNo Advanced Directives Records Found Additional Source Comments (unrecognized sect ion and content) No Status Records FoundNo Status Records Found INFORMATION SOURCE (unrecogn ized section and content) DATE CREATED AUTHOR 03/21/2021 [facility] DATE CREATED AUTHOR AUTHOR'S ORGANIZ ATION 04/24/2024 [facility] [place] FOR RECORDS PERTAINING TO PATIENTS WHO ARE [...] BE BASED ON THE PRIMARY CLINICAL RECORDS. [employer] provides no warranty or guarantee of the accuracy or completeness of information in this document.
[2024-04-24] MEDS: 0.9 % SODIUM CHLORIDE 1,000 ML 100 ML IV (23:50)
[2024-04-25 03:46] VITALS: BP 119/70; PULSE 70; TEMP 36.7; O2SAT 95
--- NOTE | 2024-04-25 05:09 | NM_ITS ---
[address] [address] Patient Name: MACKENZIE LOONEY MRN: [id number] date: 1955 Sex: M Assigned Patient Location: MS Current Patient Location: MS Accession/Order Number: [id number] Exam Date: 04/25/2024 03:00 Report Date: 04/25/2024 19:26 At the request of: PATRICIA CELIS Procedure: NM hepatobiliary wo pharm EXAM: NM hepatobiliary wo pharm HISTORY: Elevated LFFT's; abdominal pain COMPARISON: Right upper quadrant ultrasound 04/24/2024. CT abdomen pelvis 1124 TECHNIQUE: Nuclear medicine biliary HIDA scan without gallbladder stimulation. 6.2 mCi of technetium 99m mebrofenin given IV. Sequential images obtained right upper quadrant for one hour. Delayed images obtained at 2, 3 and 4 hours. FINDINGS: Prompt uptake in the liver. No definite focal liver lesion. No bowel activity seen at 1 hour. Faint bowel activity seen at 2 hours increases slightly at 3 and 4 hours. No gallbladder visualization throughout the exam. AZ/AZ hepatobiliary wo pharm IMPRESSION: 1. Nonvisualization of the gallbladder at 4 hours. In view of the findings on ultrasound, consistent with cholecystitis. 2. Delayed biliary to bowel transit. Electronically authenticated by: ROSA ORO Date: 04/25/2024 19:26
[2024-04-25] MEDS: PIPERACILLIN SODIUM/TAZOBACTAM 3.375 GM in 0.9 % SODIUM CHLORIDE 50 ML IV ×3 (06:10→22:48)
[2024-04-25 07:04] LABS: Basophils Absolute Auto 0.1 10^3/uL (0.0-0.1); Basophils Percent Auto 0.5 % (0.2-2.0); Eosinophils Absolute Auto 0.1 10^3/uL (0.0-0.7); Eosinophils Percent Auto 0.6 % (0.9-7.0); Hematocrit 35.8 % (42.0-54.0); Hemoglobin 11.6 g/dL (14.0-18.0); Immature Granulocytes Abs Auto 0.05 10^3/uL (0.00-0.03); Immature Granulocytes Pct Auto 0.4 % (0.0-0.5); Lymphocytes Absolute Auto 0.7 10^3/uL (1.2-3.8); Lymphocytes Percent Auto 5.7 % (20.5-60.0); Mean Corpuscular HGB Conc 32.4 g/dL (29.9-35.2); Mean Corpuscular Hemoglobin 28.2 pg (25.9-34.0); Mean Corpuscular Volume 86.9 fL (80.0-94.0); Mean Platelet Volume 9.7 fL (9.5-13.5); Monocytes Absolute Auto 1.1 10^3/uL (0.3-0.8); Monocytes Percent Auto 9.2 % (1.7-12.0); Neutrophils Absolute Auto 10.1 10^3/uL (1.4-6.5); Neutrophils Percent Auto 83.6 % (43.0-75.0); Platelet Count 207 10^3/uL (150-450); Red Blood Count 4.12 10^6/uL (4.70-6.10); Red Cell Distribution Width 12.6 % (11.0-15.0)
[2024-04-25 07:21] LABS: INR 1.21; Partial Thromboplastin Time 27.9 sec (22.3-36.2); Prothrombin Time 12.6 sec (9.0-11.6)
[2024-04-25 07:32] LABS: Albumin Globulin Ratio 0.8; Albumin Level 2.8 g/dL (3.4-5.0); Alkaline Phosphatase 197 U/L (46-116); Anion Gap 13.9; BUN Creatinine Ratio 11.7; Bilirubin Total 4.7 mg/dL (0.2-1.0); Calcium 8.5 mg/dL (8.5-10.1); Chloride 104 mmol/L (98-107); Estimated GFR (African America 55 (>=60); Estimated GFR (Non-African Ame 45 (>=60); Globulin 3.4 g/dL; Glucose 105 mg/dL (74-106); Phosphorus 4.8 mg/dL (2.6-4.7); Potassium 3.9 mmol/L (3.5-5.1); Sodium 140 mmol/L (136-145); Total Protein 6.2 g/dL (6.4-8.2)
[2024-04-25 08:00] VITALS: BP 138/74; PULSE 74; TEMP 36.8; O2SAT 94
[2024-04-25 08:24] LABS: Albumin Globulin Ratio 0.8; Albumin Level 2.8 g/dL (3.4-5.0); Alkaline Phosphatase 200 U/L (46-116); Aspartate Amino Transferase 498 U/L (15-37); Bilirubin Total 4.6 mg/dL (0.2-1.0); Globulin 3.6 g/dL; Total Protein 6.4 g/dL (6.4-8.2)
[2024-04-25 08:27] LABS: Alanine Aminotransferase 971 U/L (16-63); Alanine Aminotransferase 992 U/L (16-63); Aspartate Amino Transferase 515 U/L (15-37); Bilirubin Direct 3.9 mg/dL (0.0-0.2)
[2024-04-25] MEDS: ENOXAPARIN SODIUM 40 MG/0.4 ML SYRINGE SUBQ (09:52)
[2024-04-25] MEDS: METOPROLOL SUCCINATE 50 MG TAB.ER.24H PO (09:52)
--- NOTE | 2024-04-25 10:18 | PM.GSCN ---
History of Present Illness Consult details Consult date: 04/25/24 Reason for consult: gallstones Requesting physician: Jp Ho Narrative: Mackenzie Wood is a 68-year-old male who re-presented to the ED after having been seen 5 days prior with abdominal pain thought to be secondary to an umbilical hernia. All of his LFTs were normal as well as his other lab work 5 days ago but he re-presented with complaints of abdominal pain and was found have elevated LFTs with transaminases over 1200 and an elevated bilirubin of 3.6 and alkaline phosphatase of 250. He had a CT scan of the abdomen and pelvis which showed gallstones and an umbilical hernia about 4-5 cm in size. He was sent home 5 days ago re-presented and an ultrasound was done and shows cholelithiasis with sludge and no evidence of common bile duct stone on either study and mild gallbladder wall thickening. He was seen this morning and states that his abdominal pain has improved since successful reduction of his umbilical hernia in the ER yesterday. He states he has had this umbilical hernia for over eight years, and he has an appointment with a general surgeon this for evaluation of elective umbilical hernia repair. He states he has not had food today in preparation for a CCK/HIDA scan. He notes feeling bloated today and states his last bowel movement was yesterday, stating he had three, which is more than his usual one per day. He states he has hemorrhoids, which have not currently been bothering him. He has not had nausea or vomiting since yesterday. He states he and his provide 24/7 care for their son, who has a TBI. 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 He is in contact with his family about [place] [address] CT Scan Report Signed Patient: MACKENZIE WOOD MR#: [id number] : 1955 Acct:[id number] Age/Sex: 68 / M ADM Date: 04/19/24 Loc: ER Attending Dr: Ordering Physician: Mechelle Barajas Date of Service: 04/19/24 Procedure(s): CT abdomen pelvis w con Accession Number(s): [id number] cc: Lisette Rivera M.D.~ [facility] [place] [id number] Patient Name: MACKENZIE WOOD MRN: [id number] date: 1955 Sex: M Assigned Patient Location: ER Current Patient Location: ER Accession/Order Number: [id number] Exam Date: 04/19/2024 17:40 Report Date: 04/19/2024 20:28 At the request of: MECHELLE BARAJAS Procedure: CT abdomen pelvis w con EXAM: CT abdomen pelvis w con , 04/19/2024 HISTORY: umbilical pain h/o hernia not able to reduce COMPARISON: None. TECHNIQUE: CT scan of the abdomen and pelvis was performed following intravenous contrast injection. Coronal and sagittal reconstructions were performed. Dose reduction techniques were achieved by using automated exposure control and/or adjustment of mA and/or kV according to patient size and/or use of iterative reconstruction technique. FINDINGS: Moderate sized umbilical hernia is seen measuring 4 x 2 cm in size with stranding within the fatty tissue which could be due to local inflammation. Recommend clinical correlation. No bowel loops are seen within the umbilical hernia. The liver demonstrates subcentimeter hypodensity in the left lobe, likely representing a cyst or small hemangioma. The liver is otherwise unremarkable. Cholelithiasis. No biliary dilatation. The spleen and both adrenal glands are unremarkable. Mild fatty change in the pancreas. Patent portal venous system. Mild atherosclerosis of the abdominal aorta. Unremarkable IVC. Nonobstructing calculi in the left kidney, the largest in the mid calyx measuring measuring 6 mm. No hydronephrosis or hydroureter. Probable subcentimeter cortical cyst upper pole left kidney. Urinary bladder partially filled. Mild prostatic enlargement. Small left inguinal hernia containing fatty tissue. No bowel loop dilatation or bowel wall thickening. Colonic diverticulosis without diverticulitis. Post appendectomy. Trace free fluid in the peritoneal cavity. No enlarged lymph node in the abdomen, retroperitoneum or the pelvis. The bone windows demonstrate moderate disc disease at L5-S1 level. Scans through the lung bases show minimal dependent atelectasis. CT/CT abdomen pelvis w con IMPRESSION: 1. Moderate sized umbilical hernia measuring 4 x 2 cm in size. 2. Cholelithiasis. 3. Nonobstructing left renal calculi. Mild prostatic enlargement. 4. Colonic diverticulosis without diverticulitis. 5. Mild fatty change in the pancreas. Electronically authenticated by: LAVELL SONI Date: 04/19/2024 20:28 Dictated By: Lavell Soni M.D. Signed By: 04/19/242030 [address] [address] Ultrasound Report Signed Patient: MACKENZIE WOOD MR#: [id number] : 1955 Acct:[id number] Age/Sex: 68 / M ADM Date: 04/24/24 Loc: ER Attending Dr: Ordering Physician: Kiara Wood Date of Service: 04/24/24 Procedure(s): US right upper quadrant Accession Number(s): [id number] cc: Lisette Rivera M.D.; Kiara Wood~ [facility] [place] [id number] Patient Name: MACKENZIE WOOD MRN: [facility]:[id number] date: 1955 Sex: M Assigned Patient Location: ER Current Patient Location: ED.MAIN Accession/Order Number: [id number] Exam Date: 04/24/2024 20:00 Report Date: 04/24/2024 22:25 At the request of: KIARA WOOD Procedure: US right upper quadrant EXAM: US right upper quadrant , 04/24/2024 HISTORY: RUQ pain, elevated liver enzymes COMPARISON: CT scan of the abdomen and pelvis from 04/19/2024. TECHNIQUE: Multiplanar grayscale and color ultrasound imaging of the right upper abdomen was performed. FINDINGS: The liver demonstrates normal echotexture without obvious focal mass lesion. No biliary dilatation. Patent portal vein with hepatopetal flow. The left lobe liver was suboptimally visualized due to overlying bowel gas. The common bile duct measures 6 mm. The gallbladder is well visualized and demonstrates echogenic focus with shadowing consistent with gallstones. Mild echogenic sludge within the gallbladder as well. Borderline gallbladder wall thickening measuring 4 mm. The ultrasound Donahue sign was absent. The right kidney measures 11.5 x 5 x 5.2 cm with normal echotexture. The pancreas was suboptimally visualized due to overlying bowel gas. US/US right upper quadrant IMPRESSION: 1. Cholelithiasis with mild wall thickness could be from cholecystitis, however ultrasound Donahue sign is absent. Recommend clinical correlation. 2. No biliary dilatation. Electronically authenticated by: LAVELL SONI Date: 04/24/2024 22:25 Dictated By: Lavell Soni M.D. Signed By: 04/24/242226 DD/ 24 TD/TT: Collections Clerk: Review of Systems ROS Status of ROS 10 or more systems reviewed and unremarkable except as noted in history and below Constitutional Denies: fever or chills Cardiovascular Denies: chest pain Respiratory Denies: shortness of breath Gastrointestinal Denies: nausea, vomiting or diarrhea Integumentary/Breast Denies: rash or itching PFSH [facility] Medical History (Updated 04/25/24 @ 15:24 by Shaikh Lachelle MD) HTN (hypertension) ?I10 - Essential (primary) hypertension (ICD-10) HLD (hyperlipidemia) ?E78.5 - Hyperlipidemia, unspecified (ICD-10) Social History (Updated 04/25/24 @ 15:27 by Shaikh Lachelle MD) Within the past year, how often did you have a drink containing alcohol: monthly or less Within the past year, how many standard drinks containing alcohol did you have on a typical day: 1 or 2 Within the past year, how often did you have six or more drinks on one occasion: never Total score: 0 Score interpretation: A score less than 4 is consistent with normal alcohol consumption. Smoking status: Never smoker Non-prescribed substance use: denies use Highest level of school completed/degree received: high school graduate Meds Home Medications and Allergies Home Medications ?Medication ?Instructions ?Recorded ?Confirmed ?Type lisinopril 40 mg tablet 40 mg PO DAILY 04/19/24 04/25/24 History metoprolol succinate 50 mg 50 mg PO DAILY 04/19/24 04/25/24 History tablet,extended release 24 hr omeprazole 20 mg capsule,delayed 20 mg PO DAILY 04/19/24 04/25/24 History release simvastatin 40 mg tablet 40 mg PO DAILY 04/19/24 04/25/24 History spironolactone 25 mg tablet 25 mg PO DAILY 04/19/24 04/25/24 History Allergies Allergy/AdvReac Type Severity Reaction Status Date / Time Penicillins Allergy Severe Rash Verified 04/19/24 16:07 Exam Constitutional Vital Signs, click to edit/add: Last Vital Signs Temp 98.2 F 04/25/24 08:00 Pulse 74 04/25/24 08:00 Resp 18 04/25/24 03:46 BP 138/74 04/25/24 08:00 Pulse Ox 94 L 04/25/24 08:00 O2 Del Method Nasal Cannula 04/25/24 08:00 O2 Flow Rate 2 04/25/24 08:00 Documenting provider has reviewed patient's vital signs: yes Common normals: no apparent distress, average body habitus, healthy appearing, alert and well nourished General appearance: cooperative and comfortable HENRI Common normals: normocephalic, head/scalp atraumatic, hearing grossly normal bilaterally, external ears normal and external nose normal Chest Common normals: inspection of chest normal Respiratory Common normals: normal respiratory effort and clear to auscultation bilaterally Cardio Common normals: regular rate, regular rhythm, S1 normal heart sound, S2 normal heart sound and no murmurs GI Common normals: Normal to inspection, nondistended, normoactive bowel sounds present Inspection: normal to inspection and abdominal distension (mild) Auscultation: normoactive bowel sounds Palpation: soft, tender (Patient wincing during palpation of the RUQ. ) Details: RUQ, no hepatosplenomegaly and hernia (reducible umbilical hernia roughly 4 cm by 2 cm) umbilical; no guarding and not rigid Percussion: tympanic to percussion Extremity Common normals: normal to inspection and no clubbing, cyanosis or edema Neuro Common normals: moves all extremities and no focal motor deficits Results Labs Labs: Abnormal lab results 04/24/24 04/24/24 04/25/24 Range/Units 17:00 17:10 06:11 WBC 11.9 H 12.0 H (4.0-11.0) 10^3/uL RBC 4.12 L (4.70-6.10) 10^6/uL Hgb 11.6 L (14.0-18.0) g/dL Hct 35.8 L (42.0-54.0) % Neut % (Auto) 83.6 H (43.0-75.0) % Lymph % (Auto) 5.7 L (20.5-60.0) % Eos % (Auto) 0.6 L (0.9-7.0) % Neut # (Auto) 10.1 H (1.4-6.5) 10^3/uL Lymph # (Auto) 0.7 L (1.2-3.8) 10^3/uL [place] # (Auto) 1.1 H (0.3-0.8) 10^3/uL Abs Immat Gran (auto) 0.05 H (0.00-0.03) 10^3/uL Seg Neuts % (Manual) 84.0 H (43.0-75.0) Band Neutrophils % 8.0 H (0-5) % Lymphocytes % (Manual) 6.0 L (20.5-60.0) % Eosinophils % (Manual) 0.0 L (0.9-7.0) % Basophils % (Manual) 0.0 L (0.2-2.0) % Neutrophils # (Manual) 9.99 H (1.4-6.5) 10^3/uL Band Neutrophils # 1.0 H (0.0-0.3) 10^3/uL Lymphocytes # (Manual) 0.71 L (1.20-3.80) 10^3/uL Monocytes # (Manual) 0.23 L (0.30-0.80) 10^3/uL PT 12.6 H (9.0-11.6) sec Creatinine 1.54 H (0.70-1.30) mg/dL Est GFR ( Amer) 55 L (>=60) Est GFR (Non-Af Amer) 45 L (>=60) Glucose 118 H (74-106) mg/dL Phosphorus 4.8 H (2.6-4.7) mg/dL Total Bilirubin 3.7 H 4.7 H (0.2-1.0) mg/dL Direct Bilirubin (0.0-0.2) mg/dL AST 1449 H* (15-37) U/L ALT 1609 H* (16-63) U/L Alkaline Phosphatase 250 H (46-116) U/L Troponin I High Sens <4.0 L (4.0-76.1) pg/mL Total Protein (6.4-8.2) g/dL Albumin (3.4-5.0) g/dL Urine Bilirubin Moderate A (NEGATIVE) Acetaminophen <2.0 L (10.0-30.0) ug/mL 04/25/24 04/25/24 04/25/24 Range/Units 06:11 06:11 06:11 WBC (4.0-11.0) 10^3/uL RBC (4.70-6.10) 10^6/uL Hgb (14.0-18.0) g/dL Hct (42.0-54.0) % Neut % (Auto) (43.0-75.0) % Lymph % (Auto) (20.5-60.0) % Eos % (Auto) (0.9-7.0) % Neut # (Auto) (1.4-6.5) 10^3/uL Lymph # (Auto) (1.2-3.8) 10^3/uL [place] # (Auto) (0.3-0.8) 10^3/uL Abs Immat Gran (auto) (0.00-0.03) 10^3/uL Seg Neuts % (Manual) (43.0-75.0) Band Neutrophils % (0-5) % Lymphocytes % (Manual) (20.5-60.0) % Eosinophils % (Manual) (0.9-7.0) % Basophils % (Manual) (0.2-2.0) % Neutrophils # (Manual) (1.4-6.5) 10^3/uL Band Neutrophils # (0.0-0.3) 10^3/uL Lymphocytes # (Manual) (1.20-3.80) 10^3/uL Monocytes # (Manual) (0.30-0.80) 10^3/uL PT (9.0-11.6) sec Creatinine (0.70-1.30) mg/dL Est GFR ( Amer) (>=60) Est GFR (Non-Af Amer) (>=60) Glucose (74-106) mg/dL Phosphorus (2.6-4.7) mg/dL Total Bilirubin 4.6 H (0.2-1.0) mg/dL Direct Bilirubin 3.9 H* (0.0-0.2) mg/dL AST 515 H* 498 H (15-37) U/L ALT 971 H* 992 H* (16-63) U/L Alkaline Phosphatase 197 H (46-116) U/L Troponin I High Sens (4.0-76.1) pg/mL Total Protein (6.4-8.2) g/dL Albumin (3.4-5.0) g/dL Urine Bilirubin (NEGATIVE) Acetaminophen (10.0-30.0) ug/mL 04/25/24 04/25/24 Range/Units 06:11 06:11 WBC (4.0-11.0) 10^3/uL RBC (4.70-6.10) 10^6/uL Hgb (14.0-18.0) g/dL Hct (42.0-54.0) % Neut % (Auto) (43.0-75.0) % Lymph % (Auto) (20.5-60.0) % Eos % (Auto) (0.9-7.0) % Neut # (Auto) (1.4-6.5) 10^3/uL Lymph # (Auto) (1.2-3.8) 10^3/uL Summit # (Auto) (0.3-0.8) 10^3/uL Abs Immat Gran (auto) (0.00-0.03) 10^3/uL Seg Neuts % (Manual) (43.0-75.0) Band Neutrophils % (0-5) % Lymphocytes % (Manual) (20.5-60.0) % Eosinophils % (Manual) (0.9-7.0) % Basophils % (Manual) (0.2-2.0) % Neutrophils # (Manual) (1.4-6.5) 10^3/uL Band Neutrophils # (0.0-0.3) 10^3/uL Lymphocytes # (Manual) (1.20-3.80) 10^3/uL Monocytes # (Manual) (0.30-0.80) 10^3/uL PT (9.0-11.6) sec Creatinine (0.70-1.30) mg/dL Est GFR ( Amer) (>=60) Est GFR (Non-Af Amer) (>=60) Glucose (74-106) mg/dL Phosphorus (2.6-4.7) mg/dL Total Bilirubin (0.2-1.0) mg/dL Direct Bilirubin (0.0-0.2) mg/dL AST (15-37) U/L ALT (16-63) U/L Alkaline Phosphatase 200 H (46-116) U/L Troponin I High Sens (4.0-76.1) pg/mL Total Protein 6.2 L (6.4-8.2) g/dL Albumin 2.8 L 2.8 L (3.4-5.0) g/dL Urine Bilirubin (NEGATIVE) Acetaminophen (10.0-30.0) ug/mL Diabetes panel 04/24/24 04/25/24 04/25/24 Range/Units 17:00 06:11 06:11 Sodium 139 140 (136-145) mmol/L Potassium 4.3 3.9 (3.5-5.1) mmol/L Chloride 100 104 (98-107) mmol/L Carbon Dioxide 27.3 26.0 (21.0-32.0) mmol/L BUN 12.0 18.0 (7.0-18.0) mg/dL Creatinine 1.04 1.54 H (0.70-1.30) mg/dL Glucose 118 H 105 (74-106) mg/dL Calcium 9.9 8.5 (8.5-10.1) mg/dL AST 1449 H* 515 H* 498 H (15-37) U/L ALT 1609 H* 971 H* (16-63) U/L Alkaline Phosphatase 250 H (46-116) U/L Total Protein 8.2 (6.4-8.2) g/dL Albumin 3.8 (3.4-5.0) g/dL 04/25/24 04/25/24 04/25/24 Range/Units 06:11 06:11 06:11 Sodium (136-145) mmol/L Potassium (3.5-5.1) mmol/L Chloride (98-107) mmol/L Carbon Dioxide (21.0-32.0) mmol/L BUN (7.0-18.0) mg/dL Creatinine (0.70-1.30) mg/dL Glucose (74-106) mg/dL Calcium (8.5-10.1) mg/dL AST (15-37) U/L ALT 992 H* (16-63) U/L Alkaline Phosphatase 197 H 200 H (46-116) U/L Total Protein 6.2 L 6.4 (6.4-8.2) g/dL Albumin 2.8 L (3.4-5.0) g/dL 04/25/24 Range/Units 06:11 Sodium (136-145) mmol/L Potassium (3.5-5.1) mmol/L Chloride (98-107) mmol/L Carbon Dioxide (21.0-32.0) mmol/L BUN (7.0-18.0) mg/dL Creatinine (0.70-1.30) mg/dL Glucose (74-106) mg/dL Calcium (8.5-10.1) mg/dL AST (15-37) U/L ALT (16-63) U/L Alkaline Phosphatase (46-116) U/L Total Protein (6.4-8.2) g/dL Albumin 2.8 L (3.4-5.0) g/dL Calcium panel 04/24/24 04/25/24 04/25/24 Range/Units 17:00 06:11 06:11 Calcium 9.9 8.5 (8.5-10.1) mg/dL Phosphorus 4.8 H (2.6-4.7) mg/dL Albumin 3.8 2.8 L 2.8 L (3.4-5.0) g/dL Pituitary panel 04/24/24 04/25/24 Range/Units 17:00 06:11 Sodium 139 140 (136-145) mmol/L Potassium 4.3 3.9 (3.5-5.1) mmol/L Chloride 100 104 (98-107) mmol/L Carbon Dioxide 27.3 26.0 (21.0-32.0) mmol/L BUN 12.0 18.0 (7.0-18.0) mg/dL Creatinine 1.04 1.54 H (0.70-1.30) mg/dL Glucose 118 H 105 (74-106) mg/dL Calcium 9.9 8.5 (8.5-10.1) mg/dL Adrenal panel 04/24/24 04/25/24 04/25/24 Range/Units 17:00 06:11 06:11 Sodium 139 140 (136-145) mmol/L Potassium 4.3 3.9 (3.5-5.1) mmol/L Chloride 100 104 (98-107) mmol/L Carbon Dioxide 27.3 26.0 (21.0-32.0) mmol/L BUN 12.0 18.0 (7.0-18.0) mg/dL Creatinine 1.04 1.54 H (0.70-1.30) mg/dL Glucose 118 H 105 (74-106) mg/dL Calcium 9.9 8.5 (8.5-10.1) mg/dL Total Bilirubin 3.7 H 4.7 H 4.6 H (0.2-1.0) mg/dL AST 1449 H* 515 H* (15-37) U/L ALT 1609 H* (16-63) U/L Alkaline Phosphatase 250 H (46-116) U/L Total Protein 8.2 (6.4-8.2) g/dL Albumin 3.8 (3.4-5.0) g/dL 04/25/24 04/25/24 04/25/24 Range/Units 06:11 06:11 06:11 Sodium (136-145) mmol/L Potassium (3.5-5.1) mmol/L Chloride (98-107) mmol/L Carbon Dioxide (21.0-32.0) mmol/L BUN (7.0-18.0) mg/dL Creatinine (0.70-1.30) mg/dL Glucose (74-106) mg/dL Calcium (8.5-10.1) mg/dL Total Bilirubin (0.2-1.0) mg/dL AST 498 H (15-37) U/L ALT 971 H* 992 H* (16-63) U/L Alkaline Phosphatase 197 H 200 H (46-116) U/L Total Protein 6.2 L (6.4-8.2) g/dL Albumin (3.4-5.0) g/dL 04/25/24 04/25/24 Range/Units 06:11 06:11 Sodium (136-145) mmol/L Potassium (3.5-5.1) mmol/L Chloride (98-107) mmol/L Carbon Dioxide (21.0-32.0) mmol/L BUN (7.0-18.0) mg/dL Creatinine (0.70-1.30) mg/dL Glucose (74-106) mg/dL Calcium (8.5-10.1) mg/dL Total Bilirubin (0.2-1.0) mg/dL AST (15-37) U/L ALT (16-63) U/L Alkaline Phosphatase (46-116) U/L Total Protein 6.4 (6.4-8.2) g/dL Albumin 2.8 L 2.8 L (3.4-5.0) g/dL All other labs normal. Imaging Abdomen CT scan report/results: report reviewed Abdominal ultrasound report/results: report reviewed Additional studies: Pending CCK/HIDA study. Assessment and Plan Assessment and Plan (1) Acute cholecystitis: Assessment and Plan: CCK/HIDA ordered to further assess biliary tree. Consider laparoscopic cholecystectomy. (2) Elevated liver enzymes: Assessment and Plan: Today, AST above 400, ALT above 900, and alk phos below 200 have all slightly improved since admission. Prolonged PT 12.6 and increased total bilirubin 3.7 yesterday->4.6 today. Continue to monitor daily. Continue IV fluids. (3) Umbilical hernia without mention of obstruction or gangrene: Assessment and Plan: Reducible umbilical hernia. Patient states he has outpatient appointment with his general surgeon on for evaluation. Qualifiers: Obstruction and gangrene presence: without obstruction or gangrene Qualified Code(s): K42.9 - Umbilical hernia without obstruction or gangrene Plan Evaluate CCK/HIDA scan. Consider ordering hepatitis panel, laparoscopic cholecystectomy vs consult GI.
[2024-04-25] MEDS: 0.9 % SODIUM CHLORIDE 1,000 ML 100 ML IV (10:31)
[2024-04-25 11:02] VITALS: O2SAT 92
--- NOTE | 2024-04-25 15:22 | PM.HP ---
HPI H&P: HPI History of Present Illness Chief complaint: abdominal pain ACUTE CHOLECYSTITIS Narrative: 68-year-old male presented to ER last night with generalized abdominal pain, nausea, inability to tolerate oral diet, vomiting. He was seen about a week ago for similar abdominal pain and was found to have umbilical hernia and instructed to follow-up with PCP as outpatient since his abdominal pain had resolved in ED. Patient has chronic umbilical hernia for years but for past 1 year it has become intermittently painful. Supposed to follow-up with general surgery as outpatient but developed acute/severe/persistent/intractable abdominal pain with abdominal distention and came to ED last night for further evaluation. After initial management in ED, and laying down his abdominal pain resolved and he could feel that his umbilical hernia had become soft and not painful. However he was found to have significantly elevated AST/ALT/alk phos and bilirubin levels that were previously normal about a week ago. Patient did not have a new CT abdomen pelvis this admission but had an ultrasound abdomen that showed gallbladder wall thickening but negative Donahue sign. He is kept n.p.o. and was evaluated by general surgery who evaluated and ordered a HIDA scan for the patient. Patient reports that he is feeling better and has minimal to no abdominal pain but is still feeling nauseous and has anorexia. Opioid HPI Opioid Management Most Recent Pain and Opioid Data: Last Pain Scale 2 04/24/24 23:11 Last Pain Assessment 04/25/24 15:00 Last ED Pain Assessment 04/24/24 23:11 Last MAR Pain Assessment 04/24/24 17:15 Last ORT Total Score 0 04/24/24 23:50 Last ORT Risk Category Low Risk 04/24/24 23:50 Review of Systems ROS Status of ROS 10 or more systems reviewed and unremarkable except as noted in history and below [facility] Medical History (Updated 04/25/24 @ 15:24 by Shaikh Lachelle MD) HTN (hypertension) ?I10 - Essential (primary) hypertension (ICD-10) HLD (hyperlipidemia) ?E78.5 - Hyperlipidemia, unspecified (ICD-10) Social History (Updated 04/25/24 @ 15:27 by Shaikh Lachelle MD) Within the past year, how often did you have a drink containing alcohol: monthly or less Within the past year, how many standard drinks containing alcohol did you have on a typical day: 1 or 2 Within the past year, how often did you have six or more drinks on one occasion: never Total score: 0 Score interpretation: A score less than 4 is consistent with normal alcohol consumption. Smoking status: Never smoker Non-prescribed substance use: denies use Highest level of school completed/degree received: high school graduate Meds Home Medications and Allergies Home Medications ?Medication ?Instructions ?Recorded ?Confirmed ?Type lisinopril 40 mg tablet 40 mg PO DAILY 04/19/24 04/19/24 History metoprolol succinate 50 mg 50 mg PO DAILY 04/19/24 04/19/24 History tablet,extended release 24 hr omeprazole 20 mg capsule,delayed 20 mg PO DAILY 04/19/24 04/19/24 History release simvastatin 40 mg tablet 40 mg PO DAILY 04/19/24 04/19/24 History spironolactone 25 mg tablet 25 mg PO DAILY 04/19/24 04/19/24 History Allergies Allergy/AdvReac Type Severity Reaction Status Date / Time Penicillins Allergy Severe Rash Verified 04/19/24 16:07 Exam Constitutional Vital Signs, click to edit/add: Last Vital Signs Temp 98.2 F 04/25/24 08:00 Pulse 74 04/25/24 08:00 Resp 18 04/25/24 03:46 BP 138/74 04/25/24 08:00 Pulse Ox 92 L 04/25/24 11:02 O2 Del Method Room Air 04/25/24 11:02 O2 Flow Rate 2 04/25/24 08:00 Documenting provider has reviewed patient's vital signs: yes Common normals: no apparent distress and oriented x3 General appearance: cooperative [facility] Common normals: normocephalic and head/scalp atraumatic Head and scalp: normocephalic and atraumatic Eye Common normals: PERRL and EOMs intact bilaterally Conjunctiva: conjunctiva abnormal bilateral conjunctival icterus Respiratory Common normals: normal respiratory effort and clear to auscultation bilaterally Effort & inspection: able to speak in complete sentences Auscultation: clear to auscultation bilaterally Cardio Common normals: regular rate, S1 normal heart sound and S2 normal heart sound Rate: regular rate Heart sounds: S1 normal and S2 normal GI Common normals: soft to palpation, non-tender and no hepatosplenomegaly Palpation: hernia umbilical (soft, reducible) Extremity Common normals: no clubbing, cyanosis or edema Neuro Common normals: oriented x3, moves all extremities and no focal motor deficits Psych Common normals: mental status grossly normal, denies hallucinations, denies homicidal ideation and denies suicidal ideation Results Labs Labs: Short CBC 04/24/24 04/25/24 Range/Units 17:00 06:11 WBC 11.9 H 12.0 H (4.0-11.0) 10^3/uL Hgb 14.2 11.6 L (14.0-18.0) g/dL Hct 42.9 35.8 L (42.0-54.0) % Plt Count 236 207 (150-450) 10^3/uL BMP 04/24/24 04/25/24 17:00 06:11 Sodium 139 140 Potassium 4.3 3.9 Chloride 100 104 Carbon Dioxide 27.3 26.0 BUN 12.0 18.0 Creatinine 1.04 1.54 H Glucose 118 H 105 Calcium 9.9 8.5 Liver Function 04/24/24 04/25/24 04/25/24 Range/Units 17:00 06:11 06:11 Total Bilirubin 3.7 H 4.7 H 4.6 H (0.2-1.0) mg/dL Direct Bilirubin 3.9 H* (0.0-0.2) mg/dL AST 1449 H* 515 H* (15-37) U/L ALT 1609 H* (16-63) U/L Alkaline Phosphatase 250 H (46-116) U/L Albumin 3.8 (3.4-5.0) g/dL 04/25/24 04/25/24 04/25/24 Range/Units 06:11 06:11 06:11 Total Bilirubin (0.2-1.0) mg/dL Direct Bilirubin (0.0-0.2) mg/dL AST 498 H (15-37) U/L ALT 971 H* 992 H* (16-63) U/L Alkaline Phosphatase 197 H 200 H (46-116) U/L Albumin 2.8 L (3.4-5.0) g/dL 04/25/24 Range/Units 06:11 Total Bilirubin (0.2-1.0) mg/dL Direct Bilirubin (0.0-0.2) mg/dL AST (15-37) U/L ALT (16-63) U/L Alkaline Phosphatase (46-116) U/L Albumin 2.8 L (3.4-5.0) g/dL Urine 04/24/24 Range/Units 17:10 Urine Color Dk. yellow (YELLOW) Urine Clarity Clear (CLEAR) Urine pH 6.0 (5.0-9.0) Ur Specific [place] 1.025 (1.005-1.025) Urine Protein Negative (NEG/TRACE) mg/dL Urine Glucose (UA) Negative (NEGATIVE) mg/dL Assessment and Plan Assessment and Plan (1) Acute cholecystitis: Assessment and Plan: On IV Zosyn. Pain is well-controlled and currently patient is pain-free. HIDA scan is pending. General surgery on board. Continue with IV hydration. (2) Elevated liver enzymes: Assessment and Plan: AST/ALT elevated upto 1500 on arrival, gradually trending down. Normal INR but elevated ALPO4 and Bilirubin. No evidence of obstruction on US. HIDA scan pending. General surgery on board. Continue with IV hydration. hepatoid ox (3) Hyperbilirubinemia: Assessment and Plan: Hyperbilirubinemia along with elevated alk phos and AST ALT elevation. HIDA scan is pending. Monitor closely. (4) Abdominal pain: Assessment and Plan: Improved. Likely secondary to acute cholecystitis and obstructed umbilical hernia Qualifiers: Abdominal location: generalized Qualified Code(s): R10.84 - Generalized abdominal pain (5) Umbilical hernia without mention of obstruction or gangrene: Assessment and Plan: She presented with obstruction. Resolved spontaneously. General surgery on board. Qualifiers: Obstruction and gangrene presence: without obstruction or gangrene Qualified Code(s): K42.9 - Umbilical hernia without obstruction or gangrene (6) HLD (hyperlipidemia): Assessment and Plan: Statin on hold due to acute liver injury. Monitor liver function closely. Qualifiers: Hyperlipidemia type: mixed hyperlipidemia Qualified Code(s): E78.2 - Mixed hyperlipidemia (7) HTN (hypertension): Assessment and Plan: Continue with home medications. Monitor closely. Qualifiers: Hypertension type: primary hypertension Qualified Code(s): I10 - Essential (primary) hypertension Plan Patient admitted as inpatient because acute cholecystitis/obstructed umbilical hernia with significantly elevation in liver enzymes indicating underlying acute liver injury anticipated to require close inpatient monitoring/treatment for 2 to 3 days.
[2024-04-25 17:42] VITALS: BP 167/77; PULSE 77; TEMP 36.8; O2SAT 91
[2024-04-25] MEDS: PANTOPRAZOLE SODIUM 40 MG VIAL IV (17:45)
--- NOTE | 2024-04-25 19:17 | PC.NURSE ---
Per Dr. Nix, patient allowed to have a full liquid diet until midnight then NPO
[2024-04-25 20:05] VITALS: BP 172/78; PULSE 79; TEMP 37.5; O2SAT 94
[2024-04-25 20:22] VITALS: O2SAT 92
[2024-04-25] MEDS: 0.9 % SODIUM CHLORIDE 1,000 ML 125 ML IV (22:47)
[2024-04-26] VITALS (21 sets, daily range): BP systolic 135–186; BP diastolic 67–88; PULSE 69–78; TEMP 36.2–37.2; O2SAT 86–99
[2024-04-26] MEDS: 0.9 % SODIUM CHLORIDE 1,000 ML 125 ML IV ×2 (06:31→22:26)
[2024-04-26] MEDS: PIPERACILLIN SODIUM/TAZOBACTAM 3.375 GM in 0.9 % SODIUM CHLORIDE 50 ML IV ×3 (06:32→22:27)
[2024-04-26 07:25] LABS: Basophils Absolute Auto 0.1 10^3/uL (0.0-0.1); Basophils Percent Auto 0.6 % (0.2-2.0); Eosinophils Absolute Auto 0.2 10^3/uL (0.0-0.7); Eosinophils Percent Auto 1.9 % (0.9-7.0); Hematocrit 36.3 % (42.0-54.0); Hemoglobin 12.1 g/dL (14.0-18.0); Immature Granulocytes Abs Auto 0.03 10^3/uL (0.00-0.03); Immature Granulocytes Pct Auto 0.4 % (0.0-0.5); Lymphocytes Absolute Auto 0.8 10^3/uL (1.2-3.8); Lymphocytes Percent Auto 8.9 % (20.5-60.0); Mean Corpuscular HGB Conc 33.3 g/dL (29.9-35.2); Mean Corpuscular Hemoglobin 28.6 pg (25.9-34.0); Mean Corpuscular Volume 85.8 fL (80.0-94.0); Mean Platelet Volume 9.1 fL (9.5-13.5); Monocytes Absolute Auto 0.8 10^3/uL (0.3-0.8); Monocytes Percent Auto 9.8 % (1.7-12.0); Neutrophils Absolute Auto 6.6 10^3/uL (1.4-6.5); Neutrophils Percent Auto 78.4 % (43.0-75.0); Platelet Count 198 10^3/uL (150-450); Red Blood Count 4.23 10^6/uL (4.70-6.10); Red Cell Distribution Width 12.5 % (11.0-15.0); White Blood Count 8.4 10^3/uL (4.0-11.0)
[2024-04-26] MEDS: INDOCYANINE GREEN 25 MG VIAL INJ (07:27)
[2024-04-26 07:46] LABS: Albumin Globulin Ratio 0.7; Albumin Level 2.9 g/dL (3.4-5.0); Alkaline Phosphatase 205 U/L (46-116); Anion Gap 11.9; Aspartate Amino Transferase 183 U/L (15-37); Bilirubin Total 2.6 mg/dL (0.2-1.0); Calcium 8.9 mg/dL (8.5-10.1); Carbon Dioxide 26.9 mmol/L (21.0-32.0); Chloride 104 mmol/L (98-107); Estimated GFR (African America >60 (>=60); Estimated GFR (Non-African Ame 58 (>=60); Globulin 3.9 g/dL; Glucose 104 mg/dL (74-106); Potassium 3.8 mmol/L (3.5-5.1); Sodium 139 mmol/L (136-145); Total Protein 6.8 g/dL (6.4-8.2)
[2024-04-26 07:47] LABS: Alanine Aminotransferase 623 U/L (16-63)
--- NOTE | 2024-04-26 07:51 | PM.GSPN ---
Progress Note: A&P Assessment and Plan (1) Acute cholecystitis: (2) Elevated liver enzymes: (3) Umbilical hernia without mention of obstruction or gangrene: Qualifiers: Obstruction and gangrene presence: without obstruction or gangrene Qualified Code(s): K42.9 - Umbilical hernia without obstruction or gangrene Plan Robotic cholecystectomy with primary repair of umbilical hernia without mesh. Risks benefits and alternatives to surgery could include infection, bleeding, bile duct injury, blood clots to legs or lungs, recurrence of the hernia, pneumonia, heart attack, stroke, and/or . Patient understands that if liver enzymes remain elevated for some time after cholecystectomy he would need to see GI for possible ERCP. The above and wished to proceed. Subjective Subjective Patient reports: no new complaints Interval history: CKD HIDA scan shows acute cholecystitis because no emptying of the gallbladder is noted. Right-sided abdominal pain more in the right lower quadrant and right upper quadrant. His liver enzymes are slightly better but his bilirubin remains elevated as well as an alkaline phosphatase but there is no evidence of a common bile duct stone or ultrasound. He will be taken for robotic cholecystectomy and primary repair of his umbilical hernia without mesh. Risks benefits and alternatives to surgery may include infection, bleeding, bile duct injury, blood clots to legs or lungs, recurrence of the hernia, pneumonia, heart attack, stroke, and/or . He understands and wishes to proceed. He also understands that if his bilirubin and alkaline phosphatase remain elevated post cholecystectomy he may need to see GI for possible ERCP. Exam Constitutional Vital Signs, click to edit/add: Last Vital Signs Temp 98.7 F 04/26/24 07:45 Pulse 74 04/26/24 07:45 Resp 18 04/26/24 07:45 BP 186/88 H 04/26/24 07:45 Pulse Ox 93 L 04/26/24 07:45 O2 Del Method Room Air 04/26/24 07:45 O2 Flow Rate 2 04/25/24 08:00 Documenting provider has reviewed patient's vital signs: yes Common normals: no apparent distress, average body habitus, healthy appearing, alert and well nourished GI Common normals: Normal to inspection, nondistended, normoactive bowel sounds present Palpation: tender Details: RLQ and RUQ and hernia umbilical Date and Time Date and Time of Service Date of service: 04/26/24 Time: 07:51
--- NOTE | 2024-04-26 07:56 | PM.GSPRC ---
Date of procedure: 04/26/24 Indications for Procedure: Acute cholecystitis with cholelithiasis/elevated liver enzymes Umbilical hernia Pre-op diagnosis: Acute cholecystitis with cholelithiasis/elevated liver enzymes/umbilical he Post-op diagnosis: same as pre-op Procedure: Robotic cholecystectomy with IC-Green Primary repair of umbilical hernia without mesh Findings: Acute cholecystitis with cholelithiasis Anesthesia: MIHIR Surgeon: Raul Nix Procedure Summary: After again explaining the risks and benefits of the procedure in the preoperative care unit consent was obtained. ?The patient was taken back to the operative room and placed on the operative room table. General endotracheal anesthesia was induced and preoperative antibiotics were given. ?Appropriate time-out was performed. ?Right arm was?tucked at the side. ?Then the bed was positioned appropriately. ?The abdomen was prepped and draped in normal sterile fashion. A periumbilical incision was made. ?Dissection was carried down to the fascia. ?Fascia was elevated with shane clamps and entered sharply. Hernia sac was dissected free from the anterior rectus fascia and submitted for pathology. A 12 mm port was placed into the abdomen and the abdomen was insufflated, there were no complications with insufflation. ?The scope and camera was brought in and then 3 more ports were placed. An 8?mm port was placed in the right lateral position. Two additional?8 mm Davinci ports were placed, 8 cm to the left and one to the right of the umbilicus. ?The patient was then placed in reverse Trendelenburg position and slightly turned to the left. The Meetylinci robot was docked. The 4th arm was used to grasp the dome of the gallbladder superiorly. ?The peritoneal attachments were taken down with meticulous dissection laterally and medially from the gallbladder. ?At this point the infundibular gallbladder was retracted laterally and tore with bile seeping into the abdomen. This was then suctioned as much as possible. Water dissection was used to dissect out structures very carefully until the cystic duct and cystic artery were identified as close to the gallbladder fundus as possible. A critical view was obtained. ?With the cystic duct inferiorly cystic artery medially and the liver posteriorly. ?Two clips were placed on the patient side and 1 on the specimen side of both the cystic duct and the cystic artery. ?These were then excised. ?The remainder of the gallbladder was taken off of the gallbladder fossa using electrocautery. The gallbladder was then removed through the umbilical port using Endo-Catch bag. ?The gallbladder fossa was visualized again to confirm no bleeding and no leak from the cystic duct. A Toni-Salmeron drain was brought in through the right lower quadrant port and put underneath the liver bed and the right paracolic gutter and tied into place with 2-0 nylon suture. The robot was undocked from the patient. The abdomen was deinsufflated.? The anterior rectus fascia was closed with a [id number] 0 Vicryl in interrupted fashion to repair the hernia.. The skin was closed at all the incisions with 4 0 Monocryl.All incisions and underlying muscle was anesthetized with local anesthetic.? Steri-Strips were then placed over the incisions. The patient was extubated and had no immediate postoperative complications. Patient was taken to the PACU in stable condition. Television News Video Editor: AVI Maki Estimated blood loss (mL): 50 Specimens: Gallbladder Complications: No Condition: stable Disposition: PACU
[2024-04-26] MEDS: BUPIVACAINE HCL 0.5% PF 50 MG/10 ML VIAL 20 ML INJ (09:59)
[2024-04-26] MEDS: LACTATED RINGER'S SOLUTION 1,000 ML 1000 ML IV (10:03)
[2024-04-26] MEDS: HYDROMORPHONE HCL 0.5 MG/0.5 ML SYRINGE IV ×2 (11:41→11:50)
[2024-04-26] MEDS: METOPROLOL SUCCINATE 50 MG TAB.ER.24H PO (12:45)
[2024-04-26] MEDS: ENOXAPARIN SODIUM 40 MG/0.4 ML SYRINGE SUBQ (13:33)
[2024-04-26] MEDS: OXYCODONE HCL/ACETAMINOPHEN 5MG/325MG 1 TAB PO (13:44)
[2024-04-26 14:07] LABS: HBsAg Screen Negative (Negative); HCV Ab Non Reactive (Non Reactive); Hep A Ab, IgM Negative (Negative); Hep B Core Ab, IgM Negative (Negative)
--- NOTE | 2024-04-26 14:54 | P.IMPN_ITS ---
Progress Note: A&P Assessment and Plan (1) Acute cholecystitis: Assessment and Plan: Status post laparoscopic cholecystectomy. Continue with IV Zosyn. Has ALTA drain in place postoperatively. Will need overnight postoperative monitoring (2) Elevated liver enzymes: Assessment and Plan: Improvement in liver enzymes but is still significantly elevated. Will monitor overnight to ensure they are trending down. Might need outpatient follow-up by GI for EP (3) Umbilical hernia without mention of obstruction or gangrene: Assessment and Plan: Initially presented with obstructed umbilical hernia. Patient also had concurrent umbilical hernia repair. Will need outpatient follow-up for it once stable for discharge Qualifiers: Obstruction and gangrene presence: without obstruction or gangrene Qualified Code(s): K42.9 - Umbilical hernia without obstruction or gangrene (4) HTN (hypertension): Assessment and Plan: Will resume patient's oral antihypertensives. Qualifiers: Hypertension type: primary hypertension Qualified Code(s): I10 - Essential (primary) hypertension (5) HLD (hyperlipidemia): Assessment and Plan: Lipitor on hold because of acute liver injury. Qualifiers: Hyperlipidemia type: mixed hyperlipidemia Qualified Code(s): E78.2 - Mixed hyperlipidemia Internal Medicine - PN: Subj Subjective Interval history: Seen and examined after he had laparoscopic cholecystectomy. He is complaining of mild postoperative pain and is uncomfortable because of it. Denies nausea, vomiting. Exam Constitutional Vital Signs, click to edit/add: Last Vital Signs Temp 98.3 F 04/26/24 13:40 Pulse 71 04/26/24 13:40 Resp 18 04/26/24 13:40 BP 151/78 H 04/26/24 13:40 Pulse Ox 92 L 04/26/24 13:40 O2 Del Method Nasal Cannula 04/26/24 13:40 O2 Flow Rate 3 04/26/24 13:40 Documenting provider has reviewed patient's vital signs: yes Common normals: no apparent distress and oriented x3 General appearance: cooperative Respiratory Common normals: normal respiratory effort and clear to auscultation bilaterally Effort & inspection: able to speak in complete sentences Auscultation: clear to auscultation bilaterally Cardio Common normals: regular rate, S1 normal heart sound and S2 normal heart sound Rate: regular rate Heart sounds: S1 normal and S2 normal Extremity Common normals: no clubbing, cyanosis or edema Neuro Common normals: oriented x3, moves all extremities and no focal motor deficits Psych Common normals: mental status grossly normal, denies hallucinations, denies homicidal ideation and denies suicidal ideation Internal Medicine - PN: Obj Da Labs Labs: Laboratory Results - last 24 hr 04/24/24 04/26/24 20:44 07:20 WBC 8.4 RBC 4.23 L Hgb 12.1 L Hct 36.3 L MCV 85.8 MCH 28.6 MCHC 33.3 RDW 12.5 Plt Count 198 MPV 9.1 L Neut % (Auto) 78.4 H Lymph % (Auto) 8.9 L [place] % (Auto) 9.8 Eos % (Auto) 1.9 Baso % (Auto) 0.6 Neut # (Auto) 6.6 H Lymph # (Auto) 0.8 L [place] # (Auto) 0.8 Eos # (Auto) 0.2 Baso # (Auto) 0.1 Abs Immat Gran (auto) 0.03 Imm/Tot Granulo (auto) 0.4 Sodium 139 Potassium 3.8 Chloride 104 Carbon Dioxide 26.9 Anion Gap 11.9 BUN 15.0 Creatinine 1.25 Est GFR ( Amer) >60 Est GFR (Non-Af Amer) 58 L BUN/Creatinine Ratio 12.0 Glucose 104 Calcium 8.9 Total Bilirubin 2.6 H AST 183 H ALT 623 H* Alkaline Phosphatase 205 H Total Protein 6.8 Albumin 2.9 L Globulin 3.9 Albumin/Globulin Ratio 0.7 Hepatitis A IgM Ab Negative Hep Bs Antigen Negative Hep B Core IgM Ab Negative Hepatitis C Antibody Non reactive Hepatitis C Interp Comment
[2024-04-26] MEDS: PANTOPRAZOLE SODIUM 40 MG VIAL IV (15:09)
[2024-04-26] MEDS: MORPHINE SULFATE 2 MG/ML SYRINGE IV ×2 (17:45→22:27)
[2024-04-26 21:54] LABS: Glucometer 187 mg/dL (74-106)
[2024-04-27] VITALS (11 sets, daily range): BP systolic 151–158; BP diastolic 71–81; PULSE 63–67; TEMP 36.7–37.1; O2SAT 90–97
[2024-04-27] MEDS: MORPHINE SULFATE 2 MG/ML SYRINGE IV ×2 (02:30→09:30)
[2024-04-27] MEDS: PIPERACILLIN SODIUM/TAZOBACTAM 3.375 GM in 0.9 % SODIUM CHLORIDE 50 ML IV ×2 (06:01→15:36)
[2024-04-27] MEDS: 0.9 % SODIUM CHLORIDE 1,000 ML 125 ML IV ×2 (06:01→20:30)
[2024-04-27 06:07] LABS: Basophils Percent Auto 0.4 % (0.2-2.0); Eosinophils Percent Auto 0.1 % (0.9-7.0); Hematocrit 32.2 % (42.0-54.0); Immature Granulocytes Abs Auto 0.04 10^3/uL (0.00-0.03); Immature Granulocytes Pct Auto 0.5 % (0.0-0.5); Lymphocytes Absolute Auto 0.8 10^3/uL (1.2-3.8); Lymphocytes Percent Auto 9.3 % (20.5-60.0); Mean Corpuscular HGB Conc 31.1 g/dL (29.9-35.2); Mean Corpuscular Hemoglobin 28.1 pg (25.9-34.0); Mean Corpuscular Volume 90.4 fL (80.0-94.0); Mean Platelet Volume 9.8 fL (9.5-13.5); Monocytes Percent Auto 12.2 % (1.7-12.0); Neutrophils Absolute Auto 6.4 10^3/uL (1.4-6.5); Neutrophils Percent Auto 77.5 % (43.0-75.0); Platelet Count 175 10^3/uL (150-450); Red Blood Count 3.56 10^6/uL (4.70-6.10); Red Cell Distribution Width 12.8 % (11.0-15.0); White Blood Count 8.3 10^3/uL (4.0-11.0)
[2024-04-27 06:16] LABS: Alanine Aminotransferase 458 U/L (16-63); Albumin Globulin Ratio 0.6; Albumin Level 2.4 g/dL (3.4-5.0); Alkaline Phosphatase 208 U/L (46-116); Anion Gap 9.6; Aspartate Amino Transferase 170 U/L (15-37); Bilirubin Total 3.4 mg/dL (0.2-1.0); Calcium 8.5 mg/dL (8.5-10.1); Carbon Dioxide 28.3 mmol/L (21.0-32.0); Chloride 102 mmol/L (98-107); Estimated GFR (African America >60 (>=60); Estimated GFR (Non-African Ame 57 (>=60); Globulin 3.7 g/dL; Glucose 119 mg/dL (74-106); Potassium 3.9 mmol/L (3.5-5.1); Sodium 136 mmol/L (136-145); Total Protein 6.1 g/dL (6.4-8.2)
--- NOTE | 2024-04-27 07:16 | PM.GSPN ---
Progress Note: A&P Assessment and Plan (1) Acute cholecystitis: (2) Elevated liver enzymes: (3) Umbilical hernia without mention of obstruction or gangrene: Qualifiers: Obstruction and gangrene presence: without obstruction or gangrene Qualified Code(s): K42.9 - Umbilical hernia without obstruction or gangrene (4) HTN (hypertension): Qualifiers: Hypertension type: primary hypertension Qualified Code(s): I10 - Essential (primary) hypertension (5) HLD (hyperlipidemia): Qualifiers: Hyperlipidemia type: mixed hyperlipidemia Qualified Code(s): E78.2 - Mixed hyperlipidemia Plan S/P Robotic Laparoscopic Cholecystectomy-Post op Day 1 Continued transaminitis with hyperbilirubinemia, hypoalbuminemia, and elevated alkaline phosphatase Continue CMP tomorrow MRCP ordered, patient refused due to claustrophobia, HIDA without CCK ordered and pending. Continue with IV fluids, normal diet PO, ALTA drain May need ERCP if LFT's not better tomorrow. Subjective Subjective Patient reports: still having pain, tolerating liquids well, tolerating a regular diet, voiding w/o difficulty, flatus, no bowel movement and afebrile Interval history: 68 yo M s/p robotic laparoscopic cholecystectomy post op day 1. Patient is standing upon evaluation as this is most comfortable for him at this time. States his immediate postoperative course was uncomplicated and that he was able to eat dinner, scrambled eggs. Reports difficulty sleeping last night after lying fully supine. States he developed pleuritic chest pain, my ribs hurt . States he has not yet had a bowel movement but endorses passing gas. Denies fevers, chills, nausea, vomiting, hematemesis, obstipation, cough. Exam Constitutional Vital Signs, click to edit/add: Last Vital Signs Temp 98.7 F 04/26/24 21:00 Pulse 69 04/26/24 21:00 Resp 18 04/26/24 21:00 BP 148/74 H 04/26/24 21:00 Pulse Ox 97 04/27/24 04:17 O2 Del Method Nasal Cannula 04/27/24 04:17 O2 Flow Rate 2 04/27/24 04:17 Documenting provider has reviewed patient's vital signs: yes Common normals: alert General appearance: cooperative and in distress (Patient standing during evaluation, sitting/laying back is uncomfortable.) mild Orientation/consciousness: Yes awake HENSD Common normals: normocephalic, head/scalp atraumatic, hearing grossly normal bilaterally, external ears normal and external nose normal Chest Common normals: inspection of chest normal and palpation of chest normal Respiratory Effort & inspection: symmetric chest movement Auscultation: clear to auscultation bilaterally Cardio Common normals: regular rate, regular rhythm, S1 normal heart sound, S2 normal heart sound and no murmurs GI Common normals: soft to palpation Inspection: normal to inspection, central obesity and other (2 cm incisions present at umbilicus, LUQ, RLQ-medial inf, lateral superior) Auscultation: normoactive bowel sounds Palpation: tender (mild, diffuse tenderness); no guarding and not rigid Percussion: tympanic to percussion Other: 2 cm incisions present at umbilicus, LUQ, RLQ-medial inf, lateral superior. Steri-strips still in place, no erythema, edema, or drainage noted. Extremity Common normals: normal to inspection and no clubbing, cyanosis or edema Neuro Common normals: moves all extremities Sensorium/orientation: awake and alert Psych Common normals: cooperative and affect normal Date and Time Date and Time of Service Date of service: 04/27/24 Time: 06:30
[2024-04-27] MEDS: OXYCODONE HCL/ACETAMINOPHEN 5MG/325MG 1 TAB PO ×3 (07:59→22:55)
[2024-04-27] MEDS: ENOXAPARIN SODIUM 40 MG/0.4 ML SYRINGE SUBQ (09:17)
[2024-04-27] MEDS: METOPROLOL SUCCINATE 50 MG TAB.ER.24H PO (09:18)
--- NOTE | 2024-04-27 11:41 | NM_ITS ---
[address] [address] Patient Name: MACKENZIE LOONEY MRN: [id number] date: 1955 Sex: M Assigned Patient Location: [place] Current Patient Location: [place] Accession/Order Number: [id number] Exam Date: 04/27/2024 12:45 Report Date: 04/27/2024 16:29 At the request of: PATRICIA CELIS Procedure: NM hepatobiliary wo pharm EXAMINATION: NM hepatobiliary wo pharm HISTORY: Hyperbilirubinemia/ elevated LFTs postop robotic COMPARISON: No relevant comparison available. TECHNIQUE: Radionuclide hepatobiliary imaging was performed after intravenous injection of 6.4 mCi technetium 99m mebrofenin with sequential acquisitions every 1 minute for one hour. Hepatobiliary imaging with gallbladder ejection fraction analysis was then performed with sequential imaging every 1 minute for 60 minutes simultaneously during infusion of Sincalide over 60 minutes. FINDINGS: LIVER: Normal, prompt and uniform radiotracer uptake and clearing. BILIARY DUCTS: Not visualized GALLBLADDER: Not visualized INTESTINE: Nonvisualized OTHER: Negative. [place] hepatobiliary wo pharm IMPRESSION: Nonvisualization of the common bile duct or small bowel No definite biliary leak observed Electronically authenticated by: ARSENIO FREY Date: 04/27/2024 16:29
--- NOTE | 2024-04-27 12:00 | CM.NOTE ---
Rounds made with Dr. Larose, pt awaiting more testing today (Hida scan). Dr. Larose with speak with Dr. Nix for plan of care.
--- NOTE | 2024-04-27 12:16 | CM.NOTE ---
Important Message From Medicare discussed with pt, pt verbalizes understanding and signs paper. Original given to pt and copy placed in pt's chart.
--- NOTE | 2024-04-27 14:05 | PM.IMPN1 ---
Progress Note: A&P Assessment and Plan (1) Acute cholecystitis: Assessment and Plan: Status post laparoscopic cholecystectomy. Continue with IV Zosyn. Has ALTA drain in place postoperatively. Had about 100 cc output. Will need to keep ALTA drain in place. (2) Elevated liver enzymes: Assessment and Plan: Improvement in liver enzymes but is still significantly elevated. Bilirubin increased post operatively. Surgery is concerned for residual obstruction and ordered HIDA scan. mrcp was not possible due to patient's inability to lay flat. Will need continued inpatient monitoring to ensure liver enzymes are improving ,drainage is decreasing and there is no residual stone or blockage. (3) Umbilical hernia without mention of obstruction or gangrene: Assessment and Plan: Initially presented with obstructed umbilical hernia. Patient also had concurrent umbilical hernia repair. Qualifiers: Obstruction and gangrene presence: without obstruction or gangrene Qualified Code(s): K42.9 - Umbilical hernia without obstruction or gangrene (4) HTN (hypertension): Assessment and Plan: c/w home medications Qualifiers: Hypertension type: primary hypertension Qualified Code(s): I10 - Essential (primary) hypertension (5) HLD (hyperlipidemia): Assessment and Plan: Lipitor on hold because of acute liver injury. Qualifiers: Hyperlipidemia type: mixed hyperlipidemia Qualified Code(s): E78.2 - Mixed hyperlipidemia Internal Medicine - PN: Subj Subjective Interval history: Seen and examined. Doing well. Tolerating PO diet. Denies nausea/vomiting or sig abdominal pain Exam Constitutional Vital Signs, click to edit/add: Last Vital Signs Temp 98.0 F 04/27/24 11:56 Pulse 64 04/27/24 11:56 Resp 16 04/27/24 11:56 BP 156/81 H 04/27/24 11:56 Pulse Ox 96 04/27/24 11:56 O2 Del Method Room Air 04/27/24 11:56 O2 Flow Rate 2 04/27/24 04:17 Documenting provider has reviewed patient's vital signs: yes Common normals: no apparent distress and oriented x3 General appearance: cooperative Respiratory Common normals: normal respiratory effort and clear to auscultation bilaterally Effort & inspection: able to speak in complete sentences Auscultation: clear to auscultation bilaterally Cardio Common normals: regular rate, S1 normal heart sound and S2 normal heart sound Rate: regular rate Heart sounds: S1 normal and S2 normal GI Common normals: Normal to inspection, nondistended, normoactive bowel sounds present, soft to palpation, non-tender and no hepatosplenomegaly Palpation: soft and no hepatosplenomegaly Extremity Common normals: no clubbing, cyanosis or edema Neuro Common normals: oriented x3, moves all extremities and no focal motor deficits Psych Common normals: mental status grossly normal, denies hallucinations, denies homicidal ideation and denies suicidal ideation Internal Medicine - PN: Obj Da Labs Labs: Laboratory Results - last 24 hr 04/24/24 04/26/24 04/27/24 20:44 21:53 04:58 WBC 8.3 RBC 3.56 L Hgb 10.0 L Hct 32.2 L MCV 90.4 MCH 28.1 MCHC 31.1 RDW 12.8 Plt Count 175 MPV 9.8 Neut % (Auto) 77.5 H Lymph % (Auto) 9.3 L [place] % (Auto) 12.2 H Eos % (Auto) 0.1 L Baso % (Auto) 0.4 Neut # (Auto) 6.4 Lymph # (Auto) 0.8 L [place] # (Auto) 1.0 H Eos # (Auto) 0.0 Baso # (Auto) 0.0 Abs Immat Gran (auto) 0.04 H Imm/Tot Granulo (auto) 0.5 Sodium 136 Potassium 3.9 Chloride 102 Carbon Dioxide 28.3 Anion Gap 9.6 BUN 14.0 Creatinine 1.27 Est GFR ( Amer) >60 Est GFR (Non-Af Amer) 57 L BUN/Creatinine Ratio 11.0 Glucose 119 H Calcium 8.5 Total Bilirubin 3.4 H AST 170 H ALT 458 H Alkaline Phosphatase 208 H Total Protein 6.1 L Albumin 2.4 L Globulin 3.7 Albumin/Globulin Ratio 0.6 Hepatitis A IgM Ab Negative Hep Bs Antigen Negative Hep B Core IgM Ab Negative Hepatitis C Antibody Non reactive Hepatitis C Interp Comment POC Glucose 187 H
[2024-04-27] MEDS: PANTOPRAZOLE SODIUM 40 MG VIAL IV (15:35)
[2024-04-28] VITALS (10 sets, daily range): BP systolic 155–171; BP diastolic 81–88; PULSE 57–67; TEMP 36.6–36.9; O2SAT 91–97
[2024-04-28] MEDS: PIPERACILLIN SODIUM/TAZOBACTAM 3.375 GM in 0.9 % SODIUM CHLORIDE 50 ML IV ×3 (00:11→16:33)
[2024-04-28] MEDS: 0.9 % SODIUM CHLORIDE 1,000 ML 75 ML IV (04:49)
[2024-04-28] MEDS: OXYCODONE HCL/ACETAMINOPHEN 5MG/325MG 1 TAB PO ×2 (04:50→16:34)
[2024-04-28] MEDS: HYDRALAZINE HCL 20 MG/ML VIAL 10 MG IVP (06:17)
[2024-04-28 06:22] LABS: Basophils Absolute Auto 0.1 10^3/uL (0.0-0.1); Basophils Percent Auto 0.8 % (0.2-2.0); Eosinophils Absolute Auto 0.1 10^3/uL (0.0-0.7); Eosinophils Percent Auto 2.2 % (0.9-7.0); Hemoglobin 10.1 g/dL (14.0-18.0); Immature Granulocytes Abs Auto 0.06 10^3/uL (0.00-0.03); Immature Granulocytes Pct Auto 0.9 % (0.0-0.5); Lymphocytes Absolute Auto 0.6 10^3/uL (1.2-3.8); Lymphocytes Percent Auto 9.4 % (20.5-60.0); Mean Corpuscular HGB Conc 30.6 g/dL (29.9-35.2); Mean Corpuscular Hemoglobin 28.2 pg (25.9-34.0); Mean Corpuscular Volume 92.2 fL (80.0-94.0); Mean Platelet Volume 9.5 fL (9.5-13.5); Monocytes Absolute Auto 0.9 10^3/uL (0.3-0.8); Monocytes Percent Auto 14.1 % (1.7-12.0); Neutrophils Absolute Auto 4.7 10^3/uL (1.4-6.5); Neutrophils Percent Auto 72.6 % (43.0-75.0); Platelet Count 197 10^3/uL (150-450); Red Blood Count 3.58 10^6/uL (4.70-6.10); Red Cell Distribution Width 13.1 % (11.0-15.0); White Blood Count 6.5 10^3/uL (4.0-11.0)
[2024-04-28 06:40] LABS: Alanine Aminotransferase 426 U/L (16-63); Albumin Globulin Ratio 0.6; Albumin Level 2.4 g/dL (3.4-5.0); Alkaline Phosphatase 258 U/L (46-116); Aspartate Amino Transferase 165 U/L (15-37); Bilirubin Total 4.4 mg/dL (0.2-1.0); Calcium 8.7 mg/dL (8.5-10.1); Chloride 104 mmol/L (98-107); Glucose 117 mg/dL (74-106); Potassium 3.9 mmol/L (3.5-5.1); Sodium 140 mmol/L (136-145)
[2024-04-28 06:55] LABS: Anion Gap 12.3; BUN Creatinine Ratio 9.6; Carbon Dioxide 27.6 mmol/L (21.0-32.0); Estimated GFR (African America >60 (>=60); Estimated GFR (Non-African Ame >60 (>=60); Globulin 3.8 g/dL; Total Protein 6.2 g/dL (6.4-8.2)
--- NOTE | 2024-04-28 08:36 | P.GSPN_ITS ---
Progress Note: A&P Assessment and Plan (1) Acute cholecystitis: (2) Elevated liver enzymes: (3) Umbilical hernia without mention of obstruction or gangrene: Qualifiers: Obstruction and gangrene presence: without obstruction or gangrene Qualified Code(s): K42.9 - Umbilical hernia without obstruction or gangrene (4) HTN (hypertension): Qualifiers: Hypertension type: primary hypertension Qualified Code(s): I10 - Essential (primary) hypertension (5) HLD (hyperlipidemia): Qualifiers: Hyperlipidemia type: mixed hyperlipidemia Qualified Code(s): E78.2 - Mixed hyperlipidemia Plan S/P Robotic laparoscopic cholecystectomy, postop day 2 Hyperbilirubinemia and transaminitis Spoke with Dr. Lizarraga, Internal Medicine and discussed transfer of patient for ERCP of suspected common bile duct stone and GI consult, preferably at [place] Subjective Subjective Patient reports: feels better, tolerating liquids well, flatus and no bowel movement Interval history: 68-year-old male status post robotic laparoscopic cholecystectomy postop day 2. Patient seen this morning and reports that he feels better. States that he slept better last night. Notes he continues to pass gas, stands and ambulates and has room for mobility. Denies fevers, chills, nausea, vomiting, chest pain, [place] [address] Nuclear Medicine Report Signed Patient: MACKENZIE LOONEY MR#: [id number] : 1955 Acct:[id number] Age/Sex: 68 / M ADM Date: 04/24/24 Loc: [place] 218-[address]: Shaikh Lachelle Beaver Ordering Physician: Raul Celis M.D. Date of Service: 04/27/24 Procedure(s): NM hepatobiliary wo pharm Accession Number(s): [id number] cc: Lisette Rivera M.D.; Raul Celis M.D.~ The [address] [address] Patient Name: MACKENZIE LOONEY MRN: [id number] date: 1955 Sex: M Assigned Patient Location: [place] Current Patient Location: [place] Accession/Order Number: [id number] Exam Date: 04/27/2024 12:45 Report Date: 04/27/2024 16:29 At the request of: RAUL CELIS Procedure: NM hepatobiliary wo pharm EXAMINATION: NM hepatobiliary wo pharm HISTORY: Hyperbilirubinemia/ elevated LFTs postop robotic COMPARISON: No relevant comparison available. TECHNIQUE: Radionuclide hepatobiliary imaging was performed after intravenous injection of 6.4 mCi technetium 99m mebrofenin with sequential acquisitions every 1 minute for one hour. Hepatobiliary imaging with gallbladder ejection fraction analysis was then performed with sequential imaging every 1 minute for 60 minutes simultaneously during infusion of Sincalide over 60 minutes. FINDINGS: LIVER: Normal, prompt and uniform radiotracer uptake and clearing. BILIARY DUCTS: Not visualized GALLBLADDER: Not visualized INTESTINE: Nonvisualized OTHER: Negative. NM/NM hepatobiliary wo pharm IMPRESSION: Nonvisualization of the common bile duct or small bowel No definite biliary leak observed Electronically authenticated by: ARSENIO FREY Date: 04/27/2024 16:29 Dictated By: Arsenio Frey M.D. Signed By: 04/27/24 1631 DD/ 1629 TD/TT: Industrial Organization Manager: Exam Constitutional Vital Signs, click to edit/add: Last Vital Signs Temp 97.8 F 04/28/24 06:00 Pulse 57 L 04/28/24 06:00 Resp 18 04/28/24 06:00 BP 171/81 H 04/28/24 06:17 Pulse Ox 94 L 04/28/24 06:00 O2 Del Method Nasal Cannula 04/28/24 06:00 O2 Flow Rate 2 04/28/24 06:00 Documenting provider has reviewed patient's vital signs: yes Common normals: no apparent distress General appearance: cooperative [facility] Common normals: normocephalic, head/scalp atraumatic, hearing grossly normal bilaterally and external ears normal Chest Common normals: inspection of chest normal Chest: symmetrical chest wall rise Respiratory Common normals: normal respiratory effort Auscultation: clear to auscultation bilaterally Cardio Common normals: regular rate, regular rhythm, no gallops, no murmurs and no rub GI Inspection: normal to inspection Auscultation: normoactive bowel sounds Palpation: soft, tender (to light palpation diffusely.) and no hepatosplenomegaly; no guarding and not rigid Extremity Common normals: normal to inspection and no clubbing, cyanosis or edema Neuro Common normals: moves all extremities Sensorium/orientation: awake and alert Psych Appearance: grossly normal Date and Time Date and Time of Service Date of service: 04/28/24 Time: 06:
--- NOTE | 2024-04-28 09:30 | CM.NOTE ---
Rounds made with Dr. Larose, discussed with pt about transfer to higher level of care for ERCP. Pt unable to tolerate MRCP and in agreement to transfer.
[2024-04-28] MEDS: ENOXAPARIN SODIUM 40 MG/0.4 ML SYRINGE SUBQ (09:50)
[2024-04-28] MEDS: METOPROLOL SUCCINATE 50 MG TAB.ER.24H PO (09:50)
[2024-04-28] MEDS: SPIRONOLACTONE 25 MG TABLET PO (10:50)
[2024-04-28] MEDS: LISINOPRIL 20 MG TABLET 40 MG PO (10:50)
--- NOTE | 2024-04-28 13:29 | P.IMPN_ITS ---
Progress Note: A&P Assessment and Plan (1) Acute cholecystitis: Assessment and Plan: Status post laparoscopic cholecystectomy. Continue with IV Zosyn. Has ALTA drain in place postoperatively. Persistent transaminitis post op, general surgery concerned for CBD stone, needs ERCP. Accepted for transfer to [facility]. Awaiting bed. (2) Elevated liver enzymes: Assessment and Plan: no leak on HIDA scan. Persistent transaminitis. Concern for choledocholithiasis. Needs ERCP. Accepted for transfer to [facility]. (3) Umbilical hernia without mention of obstruction or gangrene: Assessment and Plan: Initially presented with obstructed umbilical hernia. Patient also had concurrent umbilical hernia repair. Qualifiers: Obstruction and gangrene presence: without obstruction or gangrene Qualified Code(s): K42.9 - Umbilical hernia without obstruction or gangrene (4) HTN (hypertension): Assessment and Plan: c/w home medications Qualifiers: Hypertension type: primary hypertension Qualified Code(s): I10 - Essential (primary) hypertension (5) HLD (hyperlipidemia): Assessment and Plan: Lipitor on hold because of acute liver injury. Qualifiers: Hyperlipidemia type: mixed hyperlipidemia Qualified Code(s): E78.2 - Mixed hyperlipidemia Internal Medicine - PN: Subj Subjective Interval history: Seen and examined. Doing well. Tolerating PO diet. Denies nausea/vomiting or sig abdominal pain Patient's AST/ALT, ALPO4 and Bilirubin is still elevated. Exam Constitutional Vital Signs, click to edit/add: Last Vital Signs Temp 98.1 F 04/28/24 11:35 Pulse 61 04/28/24 11:35 Resp 16 04/28/24 11:35 BP 155/82 H 04/28/24 11:35 Pulse Ox 96 04/28/24 11:35 O2 Del Method Room Air 04/28/24 11:35 O2 Flow Rate 2 04/28/24 06:00 Documenting provider has reviewed patient's vital signs: yes Common normals: no apparent distress and oriented x3 General appearance: cooperative Respiratory Common normals: normal respiratory effort and clear to auscultation bilaterally Effort & inspection: able to speak in complete sentences Auscultation: clear to auscultation bilaterally Cardio Common normals: regular rate, S1 normal heart sound and S2 normal heart sound Rate: regular rate Heart sounds: S1 normal and S2 normal GI Common normals: soft to palpation, non-tender and no hepatosplenomegaly Palpation: soft and no hepatosplenomegaly Extremity Common normals: no clubbing, cyanosis or edema Neuro Common normals: oriented x3, moves all extremities and no focal motor deficits Psych Common normals: mental status grossly normal, denies hallucinations, denies homicidal ideation and denies suicidal ideation Internal Medicine - PN: Obj Da Labs Labs: Laboratory Results - last 24 hr 04/28/24 05:53 WBC 6.5 RBC 3.58 L Hgb 10.1 L Hct 33.0 L MCV 92.2 MCH 28.2 MCHC 30.6 RDW 13.1 Plt Count 197 MPV 9.5 Neut % (Auto) 72.6 Lymph % (Auto) 9.4 L [place] % (Auto) 14.1 H Eos % (Auto) 2.2 Baso % (Auto) 0.8 Neut # (Auto) 4.7 Lymph # (Auto) 0.6 L [place] # (Auto) 0.9 H Eos # (Auto) 0.1 Baso # (Auto) 0.1 Abs Immat Gran (auto) 0.06 H Imm/Tot Granulo (auto) 0.9 H Sodium 140 Potassium 3.9 Chloride 104 Carbon Dioxide 27.6 Anion Gap 12.3 BUN 11.0 Creatinine 1.15 Est GFR ( Amer) >60 Est GFR (Non-Af Amer) >60 BUN/Creatinine Ratio 9.6 Glucose 117 H Calcium 8.7 Total Bilirubin 4.4 H AST 165 H ALT 426 H Alkaline Phosphatase 258 H Total Protein 6.2 L Albumin 2.4 L Globulin 3.8 Albumin/Globulin Ratio 0.6
[2024-04-28] MEDS: PANTOPRAZOLE SODIUM 40 MG VIAL IV (16:34)
[2024-04-28] MEDS: ONDANSETRON PF 4 MG/2 ML VIAL IV (16:39)
== END 2024-04-28 19:23 | disposition short-term general hospital (02) | DRG 419 ==
LOC: ER 22:59 → MS 23:32
PROVIDERS: Personal Emergency Response Attendant; Registered Nurse; Surgery; Admitting Provider Internal Medicine; Emergency Provider Emergency Medicine; PCP Family Medicine; Visit Provider Internal Medicine
PROC: 0FT44ZZ Resection of Gallbladder, Percutaneous Endoscopic Approach (ICD-10-PCS; 2024-04-26 08:00)
DX: K80.12 Calculus of gallbladder with acute and chronic cholecystitis without obstruction (principal); K42.9 Umbilical hernia without obstruction or gangrene; R79.89 Other specified abnormal findings of blood chemistry; I10 Essential (primary) hypertension; E78.2 Mixed hyperlipidemia; Z79.899 Other long term (current) drug therapy; R74.01 Elevation of levels of liver transaminase levels; R74.8 Abnormal levels of other serum enzymes; E80.6 Other disorders of bilirubin metabolism; K57.30 Diverticulosis of large intestine without perforation or abscess without bleeding
CPT/HCPCS: 36415; 71045; 76705; 78226; 80053; 80074; 80076; 80329; 81003; 83605; 83690; 83735; 84100; 84484; 85007; 85025; 85027; 85610; 85730; 88304; 93005; 94761; 96361; 96365; 96366; 96372; 96375; 96376; 99285; A9537; J0360; J0665; J1100; J1170; J1290; J1650; J1885; J2250; J2270; J2371; J2405; J2543; J2704; J2710; J3010

== ENCOUNTER 2024-09-11 09:05 | Outpatient (OUT) | payer MEDICARE, SELFPAY ==
[2024-09-11 10:23] LABS: Alanine Aminotransferase 44 U/L (16-63); Albumin Globulin Ratio 1.3; Albumin Level 4.3 g/dL (3.4-5.0); Alkaline Phosphatase 53 U/L (46-116); Anion Gap 9.6; Bilirubin Total 0.6 mg/dL (0.2-1.0); Calcium 9.4 mg/dL (8.5-10.1); Carbon Dioxide 31.6 mmol/L (21.0-32.0); Chloride 107 mmol/L (98-107); Cholesterol 158 mg/dL (<=200); Estimated GFR (African America >60 (>=60 mL/min/1.73m^2); Estimated GFR (Non-African Ame 51 (>=60 mL/min/1.73m^2); Globulin 3.3 g/dL; Glucose 106 mg/dL (74-106); HDL Cholesterol 40 mg/dL (40-60); Potassium 4.2 mmol/L (3.5-5.1); Sodium 144 mmol/L (136-145); Total Protein 7.6 g/dL (6.4-8.2); Triglycerides 183 mg/dL (<=150); VLDL CHOLESTEROL 36.6 mg/dL
[2024-09-11 10:32] LABS: Aspartate Amino Transferase 27 U/L (15-37)
[2024-09-11 10:32] LABS: Creatinine Urine Random 320.54 mg/dL (20.00-300.00); Microalbum Creatinine Ratio Ur 11.8 mg/g (0.0-29.9); Microalbumin Urine Random 3.8 mg/dL (<=30.0)
[2024-09-11 11:43] LABS: Prostate Specific Antigen Scrn 0.55 ng/mL (<=4.00)
== END 2024-09-11 09:06 | disposition home or self-care (01) ==
LOC: LAB 09:09
PROVIDERS: PCP Family Medicine; Visit Provider Family Medicine
DX: Z00.00 Encounter for general adult medical examination without abnormal findings (principal); I10 Essential (primary) hypertension; Z12.5 Encounter for screening for malignant neoplasm of prostate
CPT/HCPCS: 36415; 80053; 80061; 82043; 82570; G0103

== ENCOUNTER 2025-02-04 08:09 | Outpatient (OUT) | payer MEDICARE, SELFPAY ==
--- OUTSIDE RECORDS SUMMARY | 2025-02-04 08:24 | XMS_ITS | CCD ---
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 Name Role Phone REQUEST, DR NONE LISTED Attending Unavaila ble REQUEST, NONE LISTED Consulting Unavaila ble REQUEST, NONE LISTED Admitting Unavaila ble EARNEST DIETZ Attending Unavailable EARNEST DIETZ Consulting Unavailable EARNEST DIETZ Admitting Unavailable JONATHAN, DR LISETTE Wyatt Attending Unavailable CASTILLO, DR LISETTE Wyatt Consulting Unavailable CASTILLO, DR LISETTE Wyatt Admitting Unavailable DO Patricia Celis Attending Provider LISETTE CASTILLO Primary Care Physician Patricia Celis Admitting Unavailable Patricia Celis Attending Unavailable Patricia DE LOS SANTOS Attending Unavailable Patricia DE LOS SANTOS Attending Unavailable JONATHAN, LISETTE Wyatt Referring Unavailable JONATHAN, LISETTE Wyatt Primary Care Unavailable LISETTE CASTILLO Referring Unavailable CASTILLO, LISETTE Wyatt Primary Care Unavailable JONATHAN, LISETTE Wyatt Referring Unavailable CASTILLO, LISETTE Wyatt Primary Care Unavailable JONATHAN, LISETTE E Referring Unavailable CASTILLO, LISETTE E Primary Care Unavailable CASTILLO, LISETTE E Referring Unavailable CASTILLO, LISETTE E Primary Care Unavailable CASTILLO, LISETTE E Referring Unavailable CASTILLO, LISETTE E Primary Care Unavailable CASTILLO, LISETTE E Referring Unavailable CASTILLO, LISETTE E Primary Care Unavailable JONATHAN, LISETTE Wyatt Referring Unavailable JONATHAN, LISETTE Wyatt Primary Care Unavailable PATRICIA CELIS Attending Unavailable JONATHAN, LISETTE Wyatt Referring Unavailable CASTILLO, LISETTE E Primary Care Unavailable SOFYA IRWIN Admitting Unavailable SOFYA IRWIN Attending Unavailable SHAIKH MONTEJO Referring Unavailable LISETTE CASTILLO Primary Care Unavailable CLEVELAND ADAMS Consulting Unavailable PATRICIA COOPER Consulting Unavailable Lisette Castillo MD Primary Care Provider Allergies Allergy Classification Reported Allergen(s) Allergy Type Date of Onset Reaction(s) Facility Penicillins (antibiotic) (1 source) Penicillins Drug Allergy 7 [facility] Repository (8 sources) Penicillins; Translations: [penicillins] Drug allergy 4 [facility]disorder[facility] [place] ([facility] source) Penicillin Drug Allergy 4 [facility] Repository Medications Current Medications Medication Drug Class(es) Dates Sig (Normalized) Sig (Original) acetaminophen 500 mg oral tablet (3 sources) Start: 04-30-2024 take 1 tablet by mouth every six hours as needed for pain acetaminophen (TYLENOL EXTRA STRENGTH) 500 mg tablet Take 1 tablet (500 mg total) by mouth every 6 (six) hours as needed for pain. 30 tablet 04/30/2024 Active docusate sodium 50 mg / sennosides, detention 8.6 mg oral tablet (3 sources) Start: 04-30-2024 take 2 tablets by mouth once daily as needed for pain sennosides-docusate sodium (SENOKOT-S) 8.6-50 mg Take 2 tablets by mouth nightly as needed for constipation. Please take Senokot for constipation if you are taking opioid pain medication. 14 tablet 04/30/2024 Active lisinopril 40 mg oral tablet (10 sources) Angiotensin Converting Enzyme Inhibitor Start: 10-19-2016 End: 09-10-2024 take 1 tablet by mouth once daily Lisinopril 40 mg tablet Active 40 MG PO Daily September 10, 2024 3:07pm 24 hr metoprolol succinate 50 mg extended release oral tablet (10 sources) beta-Adrenergic Angel Start: 10-23-2023 End: 09-10-2024 take 1 tablet by mouth once daily Metoprolol Succinate 50 mg tablet extended release 24 hr Active 50 MG PO Daily September 10, 2024 3:07pm FreeTextSig: TAKE 1 TABLET DAILY; Note: Source Status: Refill; Refills: 3; Qty: 90 Tablet; Provider: Jonathan Wyatt take 1 tablet by glendy every twenty-four hours in the morning metoprolol succinate XL (TOPROL XL) 50 m g 24 hr tablet Indications: hypertension Take 1 tablet (50 mg total) by mouth in the morning. Indications: high blood pressure. Active omeprazole 20 mg delayed release oral capsule (7 sources) Proton Pump Inhibitor Start: 09-07-2024 End: 09-10-2024 take 1 capsule by mouth once daily Omeprazole 20 mg capsule,delayed release(DR/EC) Active 20 MG PO Daily September 10, 2024 3:07pm FreeTextSi capsule 30 minutes before morning meal Orally Once a day; Note: Source Status: Refill; Refills: 3; Qty: 90 Capsule; Provider: Jonathan Wyatt Start: 04-23-2024 take 1 capsule by mo [facility] once daily omeprazole 20 mg Cap-DR 20 mg = 1 cap(s), Oral, Daily, Refills(s) 0 Start Date: 04/23/24 Status: Ordered take 1 tablet by glendy in the morning omeprazole (PriLOSEC OTC) 20 mg EC tablet Indications: gastroesophageal reflux disease Take 1 tablet (20 mg total) by mouth in the morning. Indications: gastroesophageal reflux disease. Active simvastatin 40 mg oral tablet (7 sources) HMG-CoA Reductase Inhibitor Start: 09-07-2024 End: 09-10-2024 take 1 tablet by mouth once daily Simvastatin 40 mg tablet Active 40 MG PO Daily September 10, 2024 3:07pm FreeTextSig: TAKE 1 TABLET DAILY; Note: Source Status: Refill; Refills: 3; Qty: 90 Tablet; Provider: Jonathan Wyatt Start: 10-19-2016 take 40 mg by mouth once daily at bedtime simvastatin 40 mg, Oral, Once a day (at bedtime), High cholesterol Start Date: 10/19/16 Status: Ordered spironolactone 25 mg oral tablet (10 sources) Aldosterone Antagonist Start: 10-23-2023 End: 09-10-2024 take 1 tablet by mouth once daily Spironolactone 25 mg tablet Active 25 MG PO Daily September 10, 2024 3:07pm Completed/Discontinued Medications Medication Drug Class(es) Dates Sig (Normalized) Sig (Original) oxyCODONE hydrochloride 5 mg oral tablet (2 sources) Opioid Agonist Start: 04-30-2024 End: 05-04-2024 take 1 tablet by mouth every six hours as needed for pain oxyCODONE (ROXICODONE) 5 mg immediate release tablet Indications: Obstructive jaundice Take 1 tablet (5 mg total) by mouth every 6 (six) hours as needed for pain. 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] Onset: 4 04-29-2024 Chronic Biliary tract disease (4 sources) Biliary calculus; Translations: [Calculus of gallbladder with acute cholecystitis with obstruction] Onset: 4 04-23-2024 Episodic Calculus of urinary tract (2 sources) History of calculus of kidney; Translations: [Kidney stone] 10-19-2016 Episodic Disorders of lipid metabolism (2 sources) Hypercholesterolemia; Translations: [Hyperlipidemia] 10-19-2016 Chronic Diverticulosis and diverticulitis (1 source) Diverticular disease 04-23-2024 Chronic Esophageal disorders (1 source) Gastroesophageal reflux disease 04-23-2024 Chronic Essential hypertension (6 sources) Essential hypertension; Translations: [Essential (primary) hypertension] Onset: 4 10-23-2023 Chronic 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 Other nervous system disorders (1 source) H/O: vertigo 10-19-2016 Episodic Other screening for suspected conditions (not mental disorders or infectious disease) (2 sources) Patient encounter status; Translations: [Encounter for screening for malignant neoplasm of prostate] 09-10-2024 Episodic Residual codes; unclassified (1 source) Pain, unspecified; Translations: [Pain, unspecified] Onset: 4 Episodic Unclassified (1 source) POST-OP VISIT Onset: 4 Unclassified (1 source) Choledocholithiasis Onset: 4 Past or Other Problems Problem Classification Problem Date Documented Da te Episodic/Chronic Mood disorders (3 sources) Mood disorders Onset: 04-29-2024 04-29-2024 Results Test Name Value Interpretation Reference Range Facility CBC AND AUTO DIFFon 04-30-20 24 ABSOLUTE BASOPHIL 0.1 X10E9/L Normal 0.0-0.2 [facility] Comment on above: Performed By: #### C BCA, CMP #### [facility] ([id number]) [address], [address] [place] [address] ABSOLUTE NEUTROPHIL 6.7 X10E9/L High 1.5-6.6 [facility] Comment on above: Performed By: #### C BCA, CMP #### [facility] ([id number]) [address], [address] [place] [address] Basophils/100 WBC (Bld) 0.9 % Normal [facility] Comment on above: Performed By: #### C BCA, CMP #### [facility] ([id number]) [address], [address] [place] [address] Eosinophils (Bld) [#/Vol] 0.1 10*3/uL Normal 0.0-0.4 [facility] Comment on above: Performed By: #### C VLADIMIR, CMP #### [facility] ([id number]) [address], [address] [place] [address] Eosinophils/100 WBC (Bld) 1.1 % Normal [facility] Comment on above: Performed By: #### C VLADIMIR, CMP #### [facility] ([id number]) [address], [address] [place] [address] Erythrocyte distribution width (RBC) [Ratio] 13.6 % Normal 11.5-15.0 [facility] Comment on above: Performed By: #### C BCA, CMP #### [facility] ([id number]) [address], [address] [place] [address] Hematocrit (Bld) [Volume fraction] 34.4 % Low 39-49 [facility] Comment on above: Performed By: #### C BCA, CMP #### [facility] ([id number]) [address], [address] [place] [address] Hemoglobin (Bld) [Mass/Vol] 11.3 g/dL Low 13.0-17.0 [facility] Comment on above: Performed By: #### C BCA, CMP #### [facility] ([id number]) [address], [address] [place] [address] Lymphocytes (Bld) [#/Vol] 1.4 10*3/uL Normal 1.0-3.5 [facility] Comment on above: Performed By: #### C BCA, CMP #### [facility] ([id number]) [address], [address] [place] [address] Lymphocytes/100 WBC (Bld) 14.8 % Normal [facility] Comment on above: Performed By: #### C BCA, CMP #### [facility] ([id number]) [address], [address] [place] [address] MCH (RBC) [Entitic mass] 28.5 pg Normal 27-34 [facility] Comment on above: Performed By: #### C BCA, CMP #### [facility] ([id number]) [address], [address] [place] [address] MCHC (RBC) [Mass/Vol] 32.9 g/dL Normal 32-36 [facility] Comment on above: Performed By: #### C BCA, CMP #### [facility] ([id number]) [address], [address] [place] [address] MCV (RBC) [Entitic vol] 87 fL Normal 80-100 [facility] Comment on above: Performed By: #### C BCA, CMP #### [facility] ([id number]) [address], [address] [place] [address] Monocytes (Bld) [#/Vol] 0.9 10*3/uL Normal 0-0.9 [facility] Comment on above: Performed By: #### C BCA, CMP #### [facility] ([id number]) [address], [address] [place] [address] Monocytes/100 WBC (Bld) 10.1 % Normal [facility] Comment on above: Performed By: #### C BCA, CMP #### [facility] ([id number]) [address], [address] [place] [address] Neutrophils/100 WBC (Bld) 73.1 % Normal [facility] Comment on above: Performed By: #### C BCA, CMP #### [facility] ([id number]) [address], [address] [place] [address] Platelet mean volume (Bld) [Entitic vol] 8.0 fL Normal 7-12 [facility] Comment on above: Performed By: #### C BCA, CMP #### [facility] ([id number]) [address], [facility] [address] [place] [address] Platelets (Bld) [#/Vol] 261 10*3/uL Normal 150-450 [facility] Comment on above: Performed By: #### C BCA, CMP #### [facility] ([id number]) [address], [address] [place] [address] RBC COUNT 3.97 X10E12/L Low 4.10-5.70 [facility] Comment on above: Performed By: #### C BCA, CMP #### [facility] ([id number]) [address], [address] [place] [address] WBC (Bld) [#/Vol] 9.1 10*3/uL Normal 4.0-11.0 [facility] Comment on above: Performed By: #### C BCA, CMP #### [facility] ([id number]) [address], [address] [place] [address] COMPREHENSIVE METABOLIC PANE Migue 04-30-2024 Albumin [Mass/Vol] 3.4 g/dL Normal 3.2-5.3 [facility] Comment on above: Performed By: #### C BCA, CMP #### [facility] ([id number]) [address], [address] [place] [address] ALP [Catalytic activity/Vol] 237 U/L High 39-130 [facility] Comment on above: Performed By: #### C BCA, CMP #### [facility] ([id number]) [address], [address] [place] [address] ALT [Catalytic activity/Vol] 300 U/L High 0-40 [facility] Comment on above: Performed By: #### C BCA, CMP #### [facility] ([id number]) [address], [address] [place] [address] Anion gap [Moles/Vol] 10 mmol/L Normal 5-15 [facility] Comment on above: Performed By: #### C BCA, CMP #### [facility] ([id number]) [address], [address] [place] [address] AST [Catalytic activity/Vol] 85 U/L High 0-41 [facility] Comment on above: Performed By: #### C BCA, CMP #### [facility] ([id number]) [address], [address] [place] [address] Bilirubin [Mass/Vol] 1.8 mg/dL High 0.3-1.2 [facility] Comment on above: Performed By: #### C BCA, CMP #### [facility] ([id number]) [address], [address] [place] [address] Calcium [Mass/Vol] 9.4 mg/dL Normal 8.5-10.5 [facility] Comment on above: Performed By: #### C BCA, CMP #### [facility] ([id number]) [address], [address] [place] [address] Chloride [Moles/Vol] 98 mmol/L Normal 98-109 [facility] Comment on above: Performed By: #### C BCA, CMP #### [facility] [facility] ([id number]) [address], [address] [place] [address] CO2 [Moles/Vol] 32 mmol/L Normal 22-32 [facility] Comment on above: Performed By: #### C BCA, CMP #### [facility] ([id number]) [address], [address] [place] [address] Creatinine [Mass/Vol] 1.01 mg/dL Normal 0.60-1.30 [facility] Comment on above: Result Comment: METH OD TRACEABLE TO IDMS STANDARD Performed By: #### C BCA, CMP #### [facility] ([id number]) [address], [address] [place] [address] GFR/1.73 sq M.predicted among non-blacks MDRD (S/P/Bld) [Vol rate/Area] 82 mL/min/{1.73_m2} Normal >59 [facility] Comment on above: Result Comment: Reported eGFR is based on the CKD-EPI 1 equation that does not use a race coefficient. Performed By: #### C BCA, CMP #### [facility] ([id number]) [address], [address] [place] [address] Glucose [Mass/Vol] 106 mg/dL High 65-99 [facility] Comment on above: Performed By: #### C BCA, CMP #### [facility] ([id number]) [address] [address] [place] [address] Potassium [Moles/Vol] 3.6 mmol/L Normal 3.5-5.0 [facility] Comment on above: Performed By: #### C BCA, CMP #### [facility] ([id number]) [address], [address] [place] [address] Protein [Mass/Vol] 6.3 g/dL Normal 6.0-8.0 [facility] Comment on above: Performed By: #### C BCA, CMP #### [facility] ([id number]) [address], [address] [place] [address] Sodium [Moles/Vol] 140 mmol/L Normal 134-146 [facility] Comment on above: Performed By: #### C BCA, CMP #### [facility] ([id number]) [address], [address] [place] [address] Urea nitrogen [Mass/Vol] 15 mg/dL Normal 5-27 [facility] Comment on above: Performed By: #### C VLADIMIR, CMP #### [facility] ([id number]) [address], [address] [place] [address] MAGNESIUMon 04-30-2024 Magnesium [Mass/Vol] 2.1 mg/dL Normal 1.8-2.6 [facility] Comment on above: Performed By: #### Mandy GILBERT, CMP #### [facility] ([id number]) [address], [address] [place] [address] CBC AND AUTO DIFFon 04-29-20 ABSOLUTE BASOPHIL 0.1 X10E9/L Normal 0.0-0.2 [facility] Comment on above: Performed By: #### C VLADIMIR, 56360-4 #### [facility] ([id number]) [address], [address] [place] [address] ABSOLUTE NEUTROPHIL 3.8 X10E9/L Normal 1.5-6.6 [facility] Comment on above: Performed By: #### C VLADIMIR, 41600-3 #### [facility] ([id number]) [address], [address] [place] [address] Basophils/100 WBC (Bld) 0.9 % Normal [facility] Comment on above: Performed By: #### Mandy GILBERT, 88807-0 #### [facility] ([id number]) [address], [address] [place] [address] Eosinophils (Bld) [#/Vol] 0.2 10*3/uL Normal 0.0-0.4 [facility] Comment on above: Performed By: #### Mandy GILBERT, #### [facility] ([id number]) [address], [address] [place] [address] Eosinophils/100 WBC (Bld) 3.0 % Normal [facility] Comment on above: Performed By: #### Mandy GILBERT, #### [facility] ([id number]) [address], [address] [place] [address] Erythrocyte distribution width (RBC) [Ratio] 13.0 % Normal 11.5-15.0 [facility] Comment on above: Performed By: #### Mandy GILBERT, #### [facility] ([id number]) [address], [address] [place] [address] Hematocrit (Bld) [Volume fraction] 31.5 % Low 39-49 [facility] Comment on above: Performed By: #### Mandy GILBERT, #### [facility] ([id number]) [address], [address] [place] [address] Hemoglobin (Bld) [Mass/Vol] 10.2 g/dL Low 13.0-17.0 [facility] Comment on above: Performed By: #### Mandy GILBERT, #### [facility] ([id number]) [address], [address] [place] [address] Lymphocytes (Bld) [#/Vol] 0.9 10*3/uL Low 1.0-3.5 [facility] Comment on above: Performed By: #### Mandy GILBERT, #### [facility] ([id number]) [address], [address] [place] [address] Lymphocytes/100 WBC (Bld) 15.1 % Normal [facility] Comment on above: Performed By: #### Mandy GILBERT, #### [facility] ([id number]) [address], [address] [place] [address] MCH (RBC) [Entitic mass] 27.9 pg Normal 27-34 [facility] Comment on above: Performed By: #### Mandy GILBERT, #### [facility] ([id number]) [address], [address] [place] [address] MCHC (RBC) [Mass/Vol] 32.4 g/dL Normal 32-36 [facility] Comment on above: Performed By: #### Mandy GILBERT, #### [facility] ([id number]) [address], [address] [place] [address] MCV (RBC) [Entitic vol] 86 fL Normal 80-100 [facility] Comment on above: Performed By: #### Mandy GILBERT, #### [facility] ([id number]) [address], [address] [place] [address] Monocytes (Bld) [#/Vol] 0.8 10*3/uL Normal 0-0.9 [facility] Comment on above: Performed By: #### Mandy GILBERT, #### [facility] ([id number]) [address], [address] [place] [address] Monocytes/100 WBC (Bld) 14.3 % Normal [facility] Comment on above: Performed By: #### Mandy GILBERT, #### [facility] ([id number]) [address], [address] [place] [address] Neutrophils/100 WBC (Bld) 66.7 % Normal [facility] Comment on above: Performed By: #### Mandy GILBERT, #### [facility] ([id number]) [address], [address] [place] [address] Platelet mean volume (Bld) [Entitic vol] 7.7 fL Normal 7-12 [facility] Comment on above: Performed By: #### Mandy GILBERT, #### [facility] ([id number]) [address], [address] [place] [address] Platelets (Bld) [#/Vol] 209 10*3/uL Normal 150-450 [facility] Comment on above: Performed By: #### Mandy GILBERT, #### [facility] ([id number]) [address], [address] [place] [address] RBC COUNT 3.65 X10E12/L Low 4.10-5.70 [facility] Comment on above: Performed By: #### Mandy GILBERT, #### [facility] ([id number]) [address], [address] [place] [address] WBC (Bld) [#/Vol] 5.7 10*3/uL Normal 4.0-11.0 [facility] Comment on above: Performed By: #### Mandy GILBERT, 51781-4 #### [facility] ([id number]) [address], [address] [place] [address] [place] ERCP BILIARY DUCTon 04-29 [place] ERCP BILIARY DUCT [place] ERCP BILIARY ESDRAS T [place] ERCP BILIARY DUCT HISTORY: ERCP. COMPARISON: None. IMPRESSION: Reference air kerma 7.34 mGy. Fluoroscopic guidance provided. Please see details within procedural/operative note. Finalized by Ubaldo Cameron MD on 04/29/2024 2:49 PM Normal [facility] MAGNESIUMon 04-29-2024 Magnesium [Mass/Vol] 2.2 mg/dL Normal 1.8-2.6 [facility] Comment on above: Performed By: #### Mandy GILBERT, #### [facility] ([id number]) [address] [place] [address], [address] [place] [address] PROTIME AND INRon 04-29-2024 INR Coag (PPP) [Relative time] 1.1 {INR} Normal 0.8-1.1 [facility] Comment on above: Performed By: #### P INR #### [facility] ([id number]) [address] [place] [address], [address] [place] [address] PT Coag (PPP) [Time] 13.2 s Normal 9.8-13.2 [facility] Comment on above: Performed By: #### P INR #### [facility] ([id number]) [address] [place] [address], [facility] [address] [place] [address] Surgical Pathologyon 024 Surgical Pathology Normal [facility] Comment on above: Result Comment: [facility] [address] [place] [address] Surgical Pathology Consultation ADDENDUM [place] Patient Name:MACKENZIE WOOD:1955 (Age: 68)Gender:MTaken:04/29/2024eported:05/01/2024hysician(s):Werner Adams MD ([phone])Copy To: Rec. #:[id number]: #[id number] Final Pathologic Diagnosis Gastric biopsy: Benign gastric mucosa with focal erosion, hyalinization of the stroma, acute and chronic inflammation with inflammatory exudate and reactive/regenerative changes (erosive gastritis). No intestinal metaplasia or dysplasia. Immunohistochemistry for Helicobacter pylori organisms is pending; addendum to follow. Report Electronically Signed Out wavinnie/05/01/2024Julian Guillen MD Addendum (PHS) Date Reported: 05/04/2024 Immunohistochemistry (with appropriate controls) for Helicobacter pylori organisms is negative. Electronically Signed Out Julian Guillen MD Interpretation performed at [facility], [address] [place] [id number], License number: [id number]. Clinical History Obstructive jaundice. Gross Description Received in formalin labeled WOOD, gastric biopsy are 4 ferrer bits of soft tissue, ranging from 0.1-0.5 cm in greatest dimension. Filtered and submitted in a single cassette. (1, ns, [id number], m7) MG mjg/04/29/2024SSI Specimen(s) Received Gastric biopsy Fee Codes(s): 1; 54888, 10118 BLOOD CULTUREon 04-28-2024 Bacteria identified Aer cx Nom (Bld) SPECIMEN NOTES SUBOPTIMAL VOLUME OF BLOOD COLLECTED, RESULTS MAY BE AFFECTED. CULTURE RESULTS NO GROWTH 5 DAYS Normal [facility] Comment on above: Performed By: #### 1 7928-3 #### [facility] ([id number]) [address] [address] [place] [address] Bacteria identified Aer cx Nom (Bld) SPECIMEN NOTES SUBOPTIMAL VOLUME OF BLOOD COLLECTED, RESULTS MAY BE AFFECTED. CULTURE RESULTS NO GROWTH 5 DAYS Normal [facility] Comment on above: Performed By: #### 1 7928-3 #### [facility] ([id number]) [address] [address] CBC AND AUTO DIFFon 04-28-20 24 ABSOLUTE BASOPHIL 0.0 X10E9/L Normal 0.0-0.2 [facility] Comment on above: Performed By: #### C BCA, CMP #### [facility] ([id number]) [address], [facility] [address] [place] [address] ABSOLUTE NEUTROPHIL 4.7 X10E9/L Normal 1.5-6.6 [facility] Comment on above: Performed By: #### C BCA, CMP #### [facility] ([id number]) [address] [place] [address] Basophils/100 WBC (Bld) 0.7 % Normal [facility] Comment on above: Performed By: #### C BCA, CMP #### [facility] ([id number]) [address] [place] [address] Eosinophils (Bld) [#/Vol] 0.1 10*3/uL Normal 0.0-0.4 [facility] Comment on above: Performed By: #### C VLADIMIR, CMP #### [facility] ([id number]) [address] [place] [address] Eosinophils/100 WBC (Bld) 2.2 % Normal [facility] Comment on above: Performed By: #### C VLADIMIR, CMP #### [facility] ([id number]) [address] [place] [address] Erythrocyte distribution width (RBC) [Ratio] 13.3 % Normal 11.5-15.0 [facility] Comment on above: Performed By: #### C VLADIMIR, CMP #### [facility] ([id number]) [address] [place] [address] Hematocrit (Bld) [Volume fraction] 36.0 % Low 39-49 [facility] Comment on above: Performed By: #### C VLADIMIR, CMP #### [facility] ([id number]) [address] [place] [address] Hemoglobin (Bld) [Mass/Vol] 11.8 g/dL Low 13.0-17.0 [facility] Comment on above: Performed By: #### C BCA, CMP #### [facility] ([id number]) [address] [place] [address] Lymphocytes (Bld) [#/Vol] 0.9 10*3/uL Low 1.0-3.5 [facility] Comment on above: Performed By: #### C BCA, CMP #### [facility] ([id number]) [address] [place] [address] Lymphocytes/100 WBC (Bld) 14.0 % Normal [facility] Comment on above: Performed By: #### C BCA, CMP #### [facility] ([id number]) [address] [place] [address] MCH (RBC) [Entitic mass] 28.6 pg Normal 27-34 [facility] Comment on above: Performed By: #### C BCA, CMP #### [facility] ([id number]) [address] [place] [address] MCHC (RBC) [Mass/Vol] 32.8 g/dL Normal 32-36 [facility] Comment on above: Performed By: #### C BCA, CMP #### [facility] ([id number]) [address] [place] [address] MCV (RBC) [Entitic vol] 87 fL Normal 80-100 [facility] Comment on above: Performed By: #### C BCA, CMP #### [facility] ([id number]) [address] [place] [address] Monocytes (Bld) [#/Vol] 0.8 10*3/uL Normal 0-0.9 [facility] Comment on above: Performed By: #### C BCA, CMP #### [facility] ([id number]) [address] [place] [address] Monocytes/100 WBC (Bld) 12.0 % Normal [facility] Comment on above: Performed By: #### C BCA, CMP #### [facility] ([id number]) [address] [place] [address] Neutrophils/100 WBC (Bld) 71.1 % Normal [facility] Comment on above: Performed By: #### C BCA, CMP #### [facility] ([id number]) [address] [place] [address] Platelet mean volume (Bld) [Entitic vol] 7.8 fL Normal 7-12 [facility] Comment on above: Performed By: #### C BCA, CMP #### [facility] ([id number]) [address] [place] [address] Platelets (Bld) [#/Vol] 231 10*3/uL Normal 150-450 [facility] Comment on above: Performed By: #### C BCA, CMP #### [facility] ([id number]) [address], [facility] [address] [place] [address] RBC COUNT 4.14 X10E12/L Normal 4.10-5.70 [facility] Comment on above: Performed By: #### C BCA, CMP #### [facility] ([id number]) [address] [place] [address] WBC (Bld) [#/Vol] 6.6 10*3/uL Normal 4.0-11.0 [facility] Comment on above: Performed By: #### C BCA, CMP #### [facility] ([id number]) [address] [place] [address] COMPREHENSIVE METABOLIC PANE [facility] 04-28-2024 Albumin [Mass/Vol] 3.9 g/dL Normal 3.2-5.3 [facility] Comment on above: Performed By: #### C MP #### [facility] ([id number]) [address] [place] [address] ALP [Catalytic activity/Vol] 340 U/L High 39-130 [facility] Comment on above: Performed By: #### C MP #### [facility] ([id number]) [address] [place] [address] ALT [Catalytic activity/Vol] 423 U/L High 0-40 [facility] Comment on above: Performed By: #### C MP #### [facility] ([id number]) [address] [place] [address] Anion gap [Moles/Vol] 10 mmol/L Normal 5-15 [facility] Comment on above: Performed By: #### C MP #### [facility] ([id number]) [address] [place] [address] AST [Catalytic activity/Vol] 191 U/L High 0-41 [facility] Comment on above: Performed By: #### C MP #### [facility] ([id number]) [address] [place] [address] Bilirubin [Mass/Vol] 5.3 mg/dL High 0.3-1.2 [facility] Comment on above: Performed By: #### C MP #### [facility] ([id number]) [address] [place] [address] Calcium [Mass/Vol] 9.2 mg/dL Normal 8.5-10.5 [facility] Comment on above: Performed By: #### C MP #### [facility] ([id number]) [address] [place] [address] Chloride [Moles/Vol] 102 mmol/L Normal 98-109 [facility] Comment on above: Performed By: #### C MP #### [facility] ([id number]) [address] [place] [address] CO2 [Moles/Vol] 28 mmol/L Normal 22-32 [facility] Comment on above: Performed By: #### C MP #### [facility] ([id number]) [address] [address] [place] [address] Creatinine [Mass/Vol] 1.04 mg/dL Normal 0.60-1.30 [facility] Comment on above: Result Comment: METH OD TRACEABLE TO IDMS STANDARD Performed By: #### C MP #### [facility] ([id number]) [address] [address] [place] [address] GFR/1.73 sq M.predicted among non-blacks MDRD (S/P/Bld) [Vol rate/Area] 79 mL/min/{1.73_m2} Normal >59 [facility] Comment on above: Result Comment: Reported eGFR is based on the CKD-EPI 2020 equation that does not use a race coefficient. Performed By: #### C MP #### [facility] ([id number]) [address] [address] [place] [address] Glucose [Mass/Vol] 120 mg/dL High 65-99 [facility] Comment on above: Performed By: #### C MP #### [facility] ([id number]) [address] [address] [place] [address] Potassium [Moles/Vol] 3.9 mmol/L Normal 3.5-5.0 [facility] Comment on above: Performed By: #### C MP #### [facility] ([id number]) [address] [address] [place] [address] Protein [Mass/Vol] 6.8 g/dL Normal 6.0-8.0 [facility] Comment on above: Performed By: #### C MP #### [facility] ([id number]) [address] [address] [place] [address] Sodium [Moles/Vol] 140 mmol/L Normal 134-146 [facility] Comment on above: Performed By: #### C MP #### [facility] ([id number]) [address] [place] [address] Urea nitrogen [Mass/Vol] 10 mg/dL Normal 5-27 [facility] Comment on above: Performed By: #### C MP #### [facility] ([id number]) [address] [place] [address] Albumin [Mass/Vol] 3.9 g/dL Normal 3.2-5.3 [facility] Comment on above: Performed By: #### C BCA, CMP #### [facility] ([id number]) [address] [place] [address] ALP [Catalytic activity/Vol] 322 U/L High 39-130 [facility] Comment on above: Performed By: #### C BCA, CMP #### [facility] ([id number]) [address] [place] [address] ALT [Catalytic activity/Vol] 444 U/L High 0-40 [facility] Comment on above: Performed By: #### C BCA, CMP #### [facility] ([id number]) [address] [place] [address] Anion gap [Moles/Vol] 8 mmol/L Normal 5-15 [facility] Comment on above: Performed By: #### C BCA, CMP #### [facility] ([id number]) [address] [place] [address] AST [Catalytic activity/Vol] 184 U/L High 0-41 [facility] Comment on above: Performed By: #### C BCA, CMP #### [facility] ([id number]) [address] [place] [address] Bilirubin [Mass/Vol] 5.6 mg/dL High 0.3-1.2 [facility] Comment on above: Performed By: #### C BCA, CMP #### [facility] ([id number]) [address] [place] [address] Calcium [Mass/Vol] 9.6 mg/dL Normal 8.5-10.5 [facility] Comment on above: Performed By: #### C BCA, CMP #### [facility] ([id number]) [address] [place] [address] Chloride [Moles/Vol] 100 mmol/L Normal 98-109 [facility] Comment on above: Performed By: #### C BCA, CMP #### [facility] ([id number]) [address] [place] [address] CO2 [Moles/Vol] 31 mmol/L Normal 22-32 [facility] Comment on above: Performed By: #### C BCA, CMP #### [facility] ([id number]) [address] [address] [place] [address] Creatinine [Mass/Vol] 1.08 mg/dL Normal 0.60-1.30 [facility] Comment on above: Result Comment: METH OD TRACEABLE TO IDMS STANDARD Performed By: #### C BCA, CMP #### [facility] ([id number]) [address] [place] [address] GFR/1.73 sq M.predicted among non-blacks MDRD (S/P/Bld) [Vol rate/Area] 75 mL/min/{1.73_m2} Normal >59 [facility] Comment on above: Result Comment: Reported eGFR is based on the CKD-EPI 2020 equation that does not use a race coefficient. Performed By: #### C BCA, CMP #### [facility] ([id number]) [address] [address] [place] [address] Glucose [Mass/Vol] 119 mg/dL High 65-99 [facility] Comment on above: Performed By: #### C BCA, CMP #### [facility] ([id number]) [address] [place] [address] Potassium [Moles/Vol] 3.6 mmol/L Normal 3.5-5.0 [facility] Comment on above: Performed By: #### C BCA, CMP #### [facility] ([id number]) [address] [address] [place] [address] Protein [Mass/Vol] 7.5 g/dL Normal 6.0-8.0 [facility] Comment on above: Performed By: #### C BCA, CMP #### [facility] ([id number]) [address] [address] [place] [address] Sodium [Moles/Vol] 139 mmol/L Normal 134-146 [facility] Comment on above: Performed By: #### C BCA, CMP #### [facility] ([id number]) [address] [address] [place] [address] Urea nitrogen [Mass/Vol] 10 mg/dL Normal 5-27 [facility] Comment on above: Performed By: #### C BCA, CMP #### [facility] ([id number]) [address] [address] Natriuretic peptide B [Mass/ Vol]on 04-28-2024 Natriuretic peptide B (Bld) [Mass/Vol] 178 pg/mL High <100.0 [facility] Comment on above: Performed By: #### 3 0934-4 #### [facility] ([id number]) [address] [address] [place] [address] XR CHEST 1 VWon 04-28-2024 XR CHEST 1 VW XR CHEST 1 VW HISTORY: Shortness of breath COMPARISON: None FINDINGS: Portable AP upright view of the chest was performed. Mild congestion and edema with bilateral atelectatic change, greatest in the left lung base. Trace left pleural effusion. No pneumothorax. Cardiac silhouette is grossly within normal limits. IMPRESSION: * Mild vascular congestion and pulmonary edema. Finalized by Jamison Shelton MD on 04/28/2024 11:47 PM Normal [facility] Basophils Auto (Bld) [#/Vol] on 04-27-2024 Basophils (Bld) [#/Vol] 0.0 10 3/uL 0.0-0.1 [facility] Basophils/100 WBC Auto (Bld) on 04-27-2024 Basophils/100 WBC (Bld) 0.4 % 0.2-2.0 [facility] Eosinophils/100 WBC Auto (Bl d)on 04-27-2024 Eosinophils/100 WBC (Bld) 0.1 % Low 0.9-7.0 [facility] Erythrocyte distribution wid th Auto (RBC) [Ratio]on 04-27-2024 Erythrocyte distribution width (RBC) [Ratio] 12.8 % 11.0-15.0 [facility] Estimated glomerular filtrat ion rate (GFR) non- Americanon 04-27-2024 GFR/1.73 sq M.predicted among non-blacks MDRD (S/P/Bld) [Vol rate/Area] 57 mL/min/{1.73_m2} Low >=60 [facility] Globulin Calc (S) [Mass/Vol] on 04-27-2024 Globulin (S) [Mass/Vol] 3.7 g/dL [facility] Hematocrit Auto (Bld) [Volum e fraction]on 04-27-2024 Hematocrit (Bld) [Volume fraction] 32.2 % Low 42.0-54.0 [facility] Hemoglobin [Mass/volume] in Bloodon 04-27-2024 Hemoglobin (Bld) [Mass/Vol] 10.0 g/dL Low 14.0-18.0 [facility] Laboratory - Chemistry and C hemistry - challengeon 04-27-2024 Albumin [Mass/Vol] 2.4 g/dL Low 3.4-5.0 [facility] ALP [Catalytic activity/Vol] 208 U/L High 46-116 [facility] ALT [Catalytic activity/Vol] 458 U/L High 16-63 [facility] AST [Catalytic activity/Vol] 170 U/L High 15-37 [facility] Bilirubin [Mass/Vol] 3.4 mg/dL High 0.2-1.0 [facility] Calcium [Mass/Vol] 8.5 mg/dL 8.5-10.1 [facility] Chloride [Moles/Vol] 102 mmol/L 98-107 [facility] CO2 [Moles/Vol] 28.3 mmol/L 21.0-32.0 [facility] Creatinine [Mass/Vol] 1.27 mg/dL 0.70-1.30 [facility] GFR/1.73 sq M.predicted MDRD (S/P/Bld) [Vol rate/Area] mL/min/{1.73_m2} >=60 [facility] Glucose [Mass/Vol] 119 mg/dL High 74-106 [facility] Potassium [Moles/Vol] 3.9 mmol/L 3.5-5.1 [facility] Protein [Mass/Vol] 6.1 g/dL Low 6.4-8.2 [facility] Sodium [Moles/Vol] 136 mmol/L 136-145 [facility] Urea nitrogen [Mass/Vol] 14.0 mg/dL 7.0-18.0 [facility] Urea nitrogen/Creatinine [Mass ratio] 11.0 mg/mg [facility] Laboratory - Hematology and Cell countson 04-27-2024 Immature granulocytes/100 WBC (Bld) 0.5 % 0.0-0.5 [facility] Leukocytes [#/volume] correc jovani for nucleated erythrocytes in Blood by Automated counon 04-27-2024 WBC corrected for nucl RBC Auto (Bld) [#/Vol] 8.3 10 3/uL 4.0-11.0 [facility] Lymphocytes Auto (Bld) [#/Vo l]on 04-27-2024 Lymphocytes (Bld) [#/Vol] 0.8 10 3/uL Low 1.2-3.8 [facility] Lymphocytes/100 WBC Auto (Bl d)on 04-27-2024 Lymphocytes/100 WBC (Bld) 9.3 % Low 20.5-60.0 [facility] MCH Auto (RBC) [Entitic mass ]on 04-27-2024 MCH (RBC) [Entitic mass] 28.1 pg 25.9-34.0 [facility] MCHC Auto (RBC) [Mass/Vol]on 04-27-2024 MCHC (RBC) [Mass/Vol] 31.1 g/dL 29.9-35.2 [facility] MCV Auto (RBC) [Entitic vol] on 04-27-2024 MCV (RBC) [Entitic vol] 90.4 fL 80.0-94.0 [facility] Monocytes Auto (Bld) [#/Vol] on 04-27-2024 Monocytes (Bld) [#/Vol] 1.0 10 3/uL High 0.3-0.8 [facility] Monocytes/100 WBC Auto (Bld) on 04-27-2024 Monocytes/100 WBC (Bld) 12.2 % High 1.7-12.0 [facility] Neutrophils Auto (Bld) [#/Vo l]on 04-27-2024 Neutrophils (Bld) [#/Vol] 6.4 10 3/uL 1.4-6.5 [facility] Neutrophils/100 WBC Auto (Bl d)on 04-27-2024 Neutrophils/100 WBC (Bld) 77.5 % High 43.0-75.0 [facility] No Panel Informationon 04-27 Eosinophils # (Auto) 0.0 10 3/uL 0.0-0.7 [facility] Immature Granulocyte # (Auto) 0.04 10 3/uL High 0.00-0.03 [facility] Platelet mean volume Auto (B ld) [Entitic vol]on 04-27-2024 Platelet mean volume (Bld) [Entitic vol] 9.8 fL 9.5-13.5 [facility] Platelets Auto (Bld) [#/Vol] on 04-27-2024 Platelets (Bld) [#/Vol] 175 10 3/uL 150-450 [facility] RBC Auto (Bld) [#/Vol]on RBC (Bld) [#/Vol] 3.56 10 6/uL Low 4.70-6.10 [facility] Serum or plasma albumin/glob ulin mass ratioon 04-27-2024 Albumin/Globulin [Mass ratio] 0.6 {ratio} [facility] Serum or plasma anion gap de terminationon 04-27-2024 Anion gap [Moles/Vol] 9.6 mmol/L [facility] Surgical Pathologyon 024 [facility] Basophils Auto (Bld) [#/Vol] on 04-26-2024 Basophils (Bld) [#/Vol] 0.1 10 3/uL 0.0-0.1 [facility] Basophils/100 WBC Auto (Bld) on 04-26-2024 Basophils/100 WBC (Bld) 0.6 % 0.2-2.0 [facility] Eosinophils/100 WBC Auto (Bl d)on 04-26-2024 Eosinophils/100 WBC (Bld) 1.9 % 0.9-7.0 [facility] Erythrocyte distribution wid th Auto (RBC) [Ratio]on 04-26-2024 Erythrocyte distribution width (RBC) [Ratio] 12.5 % 11.0-15.0 [facility] Estimated glomerular filtrat ion rate (GFR) non- Americanon 04-26-2024 GFR/1.73 sq M.predicted among non-blacks MDRD (S/P/Bld) [Vol rate/Area] 58 mL/min/{1.73_m2} Low >=60 [facility] Globulin Calc (S) [Mass/Vol] on 04-26-2024 Globulin (S) [Mass/Vol] 3.9 g/dL [facility] Hematocrit Auto (Bld) [Volum e fraction]on 04-26-2024 Hematocrit (Bld) [Volume fraction] 36.3 % Low 42.0-54.0 [facility] Hemoglobin [Mass/volume] in Bloodon 04-26-2024 Hemoglobin (Bld) [Mass/Vol] 12.1 g/dL Low 14.0-18.0 [facility] Migue 04-26-2024 L Specimen: [id number] Received: 04/27/24 Status: FREDERICK Adorno Num: [id number] Spec Type: Surgical Subm Dr: Patricia Celis DO Tissues: A Gallbladder (GALLBLADDER) B Hernia Sac (HERNIA SAC) Procedures: HE/2, Gross/Micro L3, Gross/Micro L2 Age/ Patient Sex Location Account Attending Physician Mackenzie Wood 68/M LABELL [id number] Patricia Celis DO SPEC NUM: [id number] RECD: 04/27/24 STATUS: [facility] NUM: [id number] JUNAID: 04/26/24 [facility] DR: Patricia Celsi DO ENTERED: 04/27/[address] [facility] [address]: Kaden Varma SPEC TYPE: Surgical DEPT: IZABELLA LERNER ENTERED BY: [id number] RECV BY: [id number] ORDERED: HE/2, Gross/Micro L3, Gross/Micro L2 ORDERED: HE/2, Gross/Micro L3, Gross/Micro L2 Pathological Diagnosis Gallbladder, cholecystectomy: Acute and chronic cholecystitis. Clinical Information Abdominal pain, acute cholecystitis Gross Description Part a was received in formalin with the patient's name and gallbladder is a disrupted ferrer-brown gallbladder measuring 8.0 x 3.0 x 3.0 cm. The serosal surface is ferrer-pink roughened with disrupted areas. The wall the gallbladder measures 0.7 cm in thickness. No calculi within the gallbladder or container. The mucosal surface is ferrer-brown and velvety. Punch Card Operator sections are submitted in 1 cassette. Part B is received in formalin with the patient's name and hernia sac is an irregular shaped portion of pink-yellow, fibrofatty soft tissue. The specimen is serially sectioned revealing unremarkable fibrofatty tissue. Punch Card Operator sections are submitted in cassette B1. -------- Specimen: [id number] Received: 04/27/24 Status: FREDERICK Cadence Num: [id number] Spec Type: Surgical Subm Dr: Patricia Celis DO Tissues: A Gallbladder (GALLBLADDER) B Hernia Sac (HERNIA SAC) Procedures: HE/2, Gross/Micro L3, Gross/Micro L2 -------- Patient: Mackenzie Wood [id number] (Continued) -------- Specimen: [id number] Received: 04/27/24 (Continued) Signed (signature on file) Adeline Damon MD 04/30/24 1659 -------- Specimen: [id number] Received: 04/27/24 Status: FREDERICK Adorno Num: [id number] Spec Type: Surgical Subm Dr: Patricia Celis,DO Tissues: A Gallbladder (GALLBLADDER) B Hernia Sac (HERNIA SAC) Procedures: 2, Gross/Micro L3, Gross/Micro L2 -------- Patient: Mackenzie Wood [id number] (Continued) -------- Specimen: [id number] Received: 04/27/24 (Continued) CPT Codes 40005 -------- -------- Specimen: [id number] Received: 04/27/24 Status: FREDERICK Adorno Num: [id number] Spec Type: Surgical Subm Dr: Patricia Celis DO Tissues: A Gallbladder (GALLBLADDER) B Hernia Sac (HERNIA SAC) Procedures: HE/2, Gross/Micro L3, Gross/Micro L2 -------- Patient: Mackenzie Wood [id number] (Continued) -------- Signed (signature on file) Adeline Damon MD 04/30/24 1651 Normal [facility] Laboratory - Chemistry and C hemistry - challengeon 04-26-2024 Albumin [Mass/Vol] 2.9 g/dL Low 3.4-5.0 [facility] ALP [Catalytic activity/Vol] 205 U/L High 46-116 [facility] ALT [Catalytic activity/Vol] 623 U/L High 16-63 [facility] Comment on above: RESULTS CALLED TO gianfranco puentes, rn @BY Rosemarie Yo 0746 AST [Catalytic activity/Vol] 183 U/L High 15-37 [facility] Bilirubin [Mass/Vol] 2.6 mg/dL High 0.2-1.0 [facility] Calcium [Mass/Vol] 8.9 mg/dL 8.5-10.1 [facility] Chloride [Moles/Vol] 104 mmol/L 98-107 [facility] CO2 [Moles/Vol] 26.9 mmol/L 21.0-32.0 [facility] Creatinine [Mass/Vol] 1.25 mg/dL 0.70-1.30 [facility] GFR/1.73 sq M.predicted MDRD (S/P/Bld) [Vol rate/Area] mL/min/{1.73_m2} >=60 [facility] Glucose [Mass/Vol] 104 mg/dL 74-106 [facility] Potassium [Moles/Vol] 3.8 mmol/L 3.5-5.1 [facility] Protein [Mass/Vol] 6.8 g/dL 6.4-8.2 [facility] Sodium [Moles/Vol] 139 mmol/L 136-145 [facility] Urea nitrogen [Mass/Vol] 15.0 mg/dL 7.0-18.0 [facility] Urea nitrogen/Creatinine [Mass ratio] 12.0 mg/mg [facility] Laboratory - Hematology and Cell countson 04-26-2024 Immature granulocytes/100 WBC (Bld) 0.4 % 0.0-0.5 [facility] Leukocytes [#/volume] correc jovani for nucleated erythrocytes in Blood by Automated counon 04-26-2024 WBC corrected for nucl RBC Auto (Bld) [#/Vol] 8.4 10 3/uL 4.0-11.0 [facility] Lymphocytes Auto (Bld) [#/Vo l]on 04-26-2024 Lymphocytes (Bld) [#/Vol] 0.8 10 3/uL Low 1.2-3.8 [facility] Lymphocytes/100 WBC Auto (Bl d)on 04-26-2024 Lymphocytes/100 WBC (Bld) 8.9 % Low 20.5-60.0 [facility] MCH Auto (RBC) [Entitic mass ]on 04-26-2024 MCH (RBC) [Entitic mass] 28.6 pg 25.9-34.0 [facility] MCHC Auto (RBC) [Mass/Vol]on 04-26-2024 MCHC (RBC) [Mass/Vol] 33.3 g/dL 29.9-35.2 [facility] MCV Auto (RBC) [Entitic vol] on 04-26-2024 MCV (RBC) [Entitic vol] 85.8 fL 80.0-94.0 [facility] Monocytes Auto (Bld) [#/Vol] on 04-26-2024 Monocytes (Bld) [#/Vol] 0.8 10 3/uL 0.3-0.8 [facility] Monocytes/100 WBC Auto (Bld) on 04-26-2024 Monocytes/100 WBC (Bld) 9.8 % 1.7-12.0 [facility] Neutrophils Auto (Bld) [#/Vo l]on 04-26-2024 Neutrophils (Bld) [#/Vol] 6.6 10 3/uL High 1.4-6.5 [facility] Neutrophils/100 WBC Auto (Bl d)on 04-26-2024 Neutrophils/100 WBC (Bld) 78.4 % High 43.0-75.0 [facility] No Panel Informationon 04-26 Eosinophils # (Auto) 0.2 10 3/uL 0.0-0.7 [facility] Immature Granulocyte # (Auto) 0.03 10 3/uL 0.00-0.03 [facility] Platelet mean volume Auto (B ld) [Entitic vol]on 04-26-2024 Platelet mean volume (Bld) [Entitic vol] 9.1 fL Low 9.5-13.5 [facility] Platelets Auto (Bld) [#/Vol] on 04-26-2024 Platelets (Bld) [#/Vol] 198 10 3/uL 150-450 [facility] RBC Auto (Bld) [#/Vol]on RBC (Bld) [#/Vol] 4.23 10 6/uL Low 4.70-6.10 [facility] Serum or plasma albumin/glob ulin mass ratioon 04-26-2024 Albumin/Globulin [Mass ratio] 0.7 {ratio} [facility] Serum or plasma anion gap de terminationon 04-26-2024 Anion gap [Moles/Vol] 11.9 mmol/L [facility] Globulin Calc (S) [Mass/Vol] on 04-25-2024 Globulin (S) [Mass/Vol] 3.6 g/dL [facility] Laboratory - Chemistry and C hemistry - challengeon 04-25-2024 Albumin [Mass/Vol] 2.8 g/dL Low 3.4-5.0 [facility] ALP [Catalytic activity/Vol] 200 U/L High 46-116 [facility] ALT [Catalytic activity/Vol] 992 U/L High 16-63 [facility] Comment on above: RESULTS CALLED TO GIANFRANCO PUENTES RN @BY Rosemarie Yo 08 AST [Catalytic activity/Vol] 498 U/L High 15-37 [facility] Bilirubin [Mass/Vol] 4.6 mg/dL High 0.2-1.0 [facility] Bilirubin.direct [Mass/Vol] 3.9 mg/dL High 0.0-0.2 [facility] Comment on above: RESULTS CALLED TO GIANFRANCO PUENTES, RN @BY Rosemarie Yo 08 Protein [Mass/Vol] 6.4 g/dL 6.4-8.2 [facility] Multiple labsOrdered By: Clare Krishnan on 04-25-2024 [facility] Serum or plasma albumin/glob ulin mass ratioon 04-25-2024 Albumin/Globulin [Mass ratio] 0.8 {ratio} [facility] Basophils/100 WBC Manual cnt (Bld)on 04-24-2024 Basophils/100 WBC (Bld) 0.0 % Low 0.2-2.0 [facility] Diagnostic impression [Inter pretation] in Specimen Narrativeon 04-24-2024 Diagnostic impression [facility] (Unsp spec) [Interp] Comment . [facility] Comment on above: Not infected with HC V unless early or acute infection issuspected (which may be delayed in an immunocompromisedindividual), or other evidence exists to indicate HCVinfection.Performed at: [facility] [id number] Director: Efra Mckeon PhD, Phone: [phone] Eosinophils/100 WBC Manual c nt (Bld)on 04-24-2024 Eosinophils/100 WBC (Bld) 0.0 % Low 0.9-7.0 [facility] Erythrocyte distribution wid th Auto (RBC) [Ratio]on 04-24-2024 Erythrocyte distribution width (RBC) [Ratio] 12.3 % 11.0-15.0 [facility] Estimated glomerular filtrat ion rate (GFR) non- Americanon 04-24-2024 GFR/1.73 sq M.predicted among non-blacks MDRD (S/P/Bld) [Vol rate/Area] mL/min/{1.73_m2} >=60 [facility] Globulin Calc (S) [Mass/Vol] on 04-24-2024 Globulin (S) [Mass/Vol] 4.4 g/dL [facility] Hematocrit Auto (Bld) [Volum e fraction]on 04-24-2024 Hematocrit (Bld) [Volume fraction] 42.9 % 42.0-54.0 [facility] Hemoglobin [Mass/volume] in Bloodon 04-24-2024 Hemoglobin (Bld) [Mass/Vol] 14.2 g/dL 14.0-18.0 [facility] Hepatitis B virus surface Ag [Presence] in Serum or Plasma by Immunoassayon 04-24-2024 HBV surface Ag IA Ql Negative Negative [facility] Laboratory - Chemistry and C hemistry - challengeon 04-24-2024 Bilirubin Ql (U) MODERATE Abnormal NEGATIVE [facility] Glucose (U) [Mass/Vol] Negative NEGATIVE [facility] Ketones Ql (U) Negative NEGATIVE [facility] pH (U) 6.0 [pH] 5.0-9.0 [facility] Specific gravity (U) [Rel density] 1.025 1.005-1.025 [facility] Urobilinogen Qn (U) 1.0 {Robert'U}/dL 0.2-1.0 [facility] Albumin [Mass/Vol] 3.8 g/dL 3.4-5.0 [facility] ALP [Catalytic activity/Vol] 250 U/L High 46-116 [facility] ALT [Catalytic activity/Vol] 1609 U/L High 16-63 [facility] Comment on above: RESULTS CALLED TO Timur HahnRN)@BY Mary Franks MLT at 1911 AST [Catalytic activity/Vol] 1449 U/L High 15-37 [facility] Comment on above: RESULTS CALLED TO Timur ROWE)@BY Mary Franks MLT at 1911 Bilirubin [Mass/Vol] 3.7 mg/dL High 0.2-1.0 [facility] Calcium [Mass/Vol] 9.9 mg/dL 8.5-10.1 [facility] Chloride [Moles/Vol] 100 mmol/L 98-107 [facility] CO2 [Moles/Vol] 27.3 mmol/L 21.0-32.0 [facility] Creatinine [Mass/Vol] 1.04 mg/dL 0.70-1.30 [facility] GFR/1.73 sq M.predicted MDRD (S/P/Bld) [Vol rate/Area] mL/min/{1.73_m2} >=60 [facility] Glucose [Mass/Vol] 118 mg/dL High 74-106 [facility] Lactate [Moles/Vol] 1.1 mmol/L 0.4-2.0 [facility] Lipase [Catalytic activity/Vol] 25.0 U/L 16.0-77.0 [facility] Potassium [Moles/Vol] 4.3 mmol/L 3.5-5.1 [facility] Protein [Mass/Vol] 8.2 g/dL 6.4-8.2 [facility] Sodium [Moles/Vol] 139 mmol/L 136-145 [facility] Urea nitrogen [Mass/Vol] 12.0 mg/dL 7.0-18.0 [facility] Urea nitrogen/Creatinine [Mass ratio] 11.5 mg/mg [facility] Laboratory - Hematology and Cell countson 04-24-2024 Band form neutrophils/100 WBC (Bld) 8.0 % High 0-5 [facility] Lymphocytes/100 WBC (Bld) 6.0 % Low 20.5-60.0 [facility] Monocytes/100 WBC (Bld) 2.0 % 1.7-12.0 [facility] Laboratory - Specimen inform ationon 04-24-2024 Appearance (U) CLEAR CLEAR [facility] Color (U) DK. YELLOW YELLOW [facility] Laboratory - Urinalysison Leukocyte esterase Test strip Ql (U) Negative NEGATIVE [facility] Nitrite Ql (U) Negative NEGATIVE [facility] Protein Ql (U) Negative NEG/TRACE [facility] Leukocytes [#/volume] correc jovani for nucleated erythrocytes in Blood by Automated counon 04-24-2024 WBC corrected for nucl RBC Auto (Bld) [#/Vol] 11.9 10 3/uL High 4.0-11.0 [facility] MCH Auto (RBC) [Entitic mass ]on 04-24-2024 MCH (RBC) [Entitic mass] 28.3 pg 25.9-34.0 [facility] MCHC Auto (RBC) [Mass/Vol]on 04-24-2024 MCHC (RBC) [Mass/Vol] 33.1 g/dL 29.9-35.2 [facility] MCV Auto (RBC) [Entitic vol] on 04-24-2024 MCV (RBC) [Entitic vol] 85.5 fL 80.0-94.0 [facility] No Panel Informationon 04-24 Hepatitis A IgM Antibody Negative Negative [facility] Hepatitis B Core IgM Antibody Negative Negative [facility] Urine Microscopic Review NO [facility] Urine Occult Blood Negative NEGATIVE [facility] Absolute Basophils (Manual) 0.00 10 3/uL 0.00-0.10 [facility] Acetaminophen Level <2.0 ug/mL Low 10.0-30.0 [facility] Band Neutrophils # (Manual) 1.0 10 3/uL High 0.0-0.3 [facility] Eosinophils # (Manual) 0.00 10 3/uL 0.00-0.70 [facility] Lymphocytes # (Manual) 0.71 10 3/uL Low 1.20-3.80 [facility] Monocytes # (Manual) 0.23 10 3/uL Low 0.30-0.80 [facility] Segmented Neutrophils # (Manual) 9.99 10 3/uL High 1.4-6.5 [facility] Troponin I High Sensitivity <4.0 pg/mL Low 4.0-76.1 [facility] Comment on above: CUT-OFF POINTS HAVE BEEN ESTABLISHED BASED ON THE FOURTHUNIVERSAL DEFINITION OF MYOCARDIAL INFARCTION. THE UPPERREFERENCE LIMIT (URL) OF TROPONIN, DEFINED THE 99THPERCENTILE OF cTnI DISTRIBUTION IN A REFERENCE POPULATION,HAS BEEN CONFIRMED THE DECISION THRESHOLD FOR MIDIAGNOSIS.99TH PERCENTILE = 76.2 PG/MLNOTE: HIGH-SENSITIVITY TROPONIN ASSAY IS NOT INTENDED TO BEUSED IN ISOLATION BUT SHOULD BE INTERPRETED IN CONJUNCTIONWITH OTHER DIAGNOSTIC AND CLINICAL INFORMATION. Platelet mean volume Auto (B ld) [Entitic vol]on 04-24-2024 Platelet mean volume (Bld) [Entitic vol] 9.5 fL 9.5-13.5 [facility] Platelets Auto (Bld) [#/Vol] on 04-24-2024 Platelets (Bld) [#/Vol] 236 10 3/uL 150-450 [facility] RBC Auto (Bld) [#/Vol]on RBC (Bld) [#/Vol] 5.02 10 6/uL 4.70-6.10 [facility] Segmented neutrophils/100 WB C Manual cnt (Bld)on 04-24-2024 Segmented neutrophils/100 WBC (Bld) 84.0 % High 43.0-75.0 [facility] Serum or plasma albumin/glob ulin mass ratioon 04-24-2024 Albumin/Globulin [Mass ratio] 0.9 {ratio} [facility] Serum or plasma anion gap de terminationon 04-24-2024 Anion gap [Moles/Vol] 16.0 mmol/L [facility] Serum or plasma hepatitis C virus antibody signal/cutoff ratio by immunoassay (relation 04-24-2024 HCV Ab Signal/Cutoff IA [Rel units/Vol] Non-Reactive Non Reactive [facility] Basophils Auto (Bld) [#/Vol] on 04-19-2024 Basophils (Bld) [#/Vol] 0.1 10 3/uL 0.0-0.1 [facility] Basophils/100 WBC Auto (Bld) on 04-19-2024 Basophils/100 WBC (Bld) 0.4 % 0.2-2.0 [facility] Eosinophils/100 WBC Auto (Bl d)on 04-19-2024 Eosinophils/100 WBC (Bld) 0.6 % Low 0.9-7.0 [facility] Erythrocyte distribution wid th Auto (RBC) [Ratio]on 04-19-2024 Erythrocyte distribution width (RBC) [Ratio] 12.4 % 11.0-15.0 [facility] Estimated glomerular filtrat ion rate (GFR) non- Americanon 04-19-2024 GFR/1.73 sq M.predicted among non-blacks MDRD (S/P/Bld) [Vol rate/Area] mL/min/{1.73_m2} >=60 [facility] Globulin Calc (S) [Mass/Vol] on 04-19-2024 Globulin (S) [Mass/Vol] 3.4 g/dL [facility] Hematocrit Auto (Bld) [Volum e fraction]on 04-19-2024 Hematocrit (Bld) [Volume fraction] 43.7 % 42.0-54.0 [facility] Hemoglobin [Mass/volume] in Bloodon 04-19-2024 Hemoglobin (Bld) [Mass/Vol] 14.5 g/dL 14.0-18.0 [facility] Laboratory - Chemistry and C hemistry - challengeon 04-19-2024 Bilirubin Ql (U) Negative NEGATIVE [facility] Glucose (U) [Mass/Vol] Negative NEGATIVE [facility] Ketones Ql (U) Negative NEGATIVE [facility] pH (U) 6.0 [pH] 5.0-9.0 [facility] Specific gravity (U) [Rel density] 1.010 1.005-1.025 [facility] Urobilinogen Qn (U) 0.2 {Robert'U}/dL 0.2-1.0 [facility] Albumin [Mass/Vol] 4.1 g/dL 3.4-5.0 [facility] ALP [Catalytic activity/Vol] 56 U/L 46-116 [facility] ALT [Catalytic activity/Vol] 39 U/L 16-63 [facility] AST [Catalytic activity/Vol] 21 U/L 15-37 [facility] Bilirubin [Mass/Vol] 1.0 mg/dL 0.2-1.0 [facility] Calcium [Mass/Vol] 9.5 mg/dL 8.5-10.1 [facility] Chloride [Moles/Vol] 102 mmol/L 98-107 [facility] CO2 [Moles/Vol] 29.7 mmol/L 21.0-32.0 [facility] Creatinine [Mass/Vol] 1.11 mg/dL 0.70-1.30 [facility] GFR/1.73 sq M.predicted MDRD (S/P/Bld) [Vol rate/Area] mL/min/{1.73_m2} >=60 [facility] Glucose [Mass/Vol] 127 mg/dL High 74-106 [facility] Lactate [Moles/Vol] 1.4 mmol/L 0.4-2.0 [facility] Lipase [Catalytic activity/Vol] 17.0 U/L 16.0-77.0 [facility] Potassium [Moles/Vol] 3.9 mmol/L 3.5-5.1 [facility] Protein [Mass/Vol] 7.5 g/dL 6.4-8.2 [facility] Sodium [Moles/Vol] 140 mmol/L 136-145 [facility] Urea nitrogen [Mass/Vol] 13.0 mg/dL 7.0-18.0 [facility] Urea nitrogen/Creatinine [Mass ratio] 11.7 mg/mg [facility] Laboratory - Hematology and Cell countson 04-19-2024 Immature granulocytes/100 WBC (Bld) 0.3 % 0.0-0.5 [facility] Laboratory - Specimen inform ationon 04-19-2024 Appearance (U) CLEAR CLEAR [facility] Color (U) LT. YELLOW YELLOW [facility] Laboratory - Urinalysison Leukocyte esterase Test strip Ql (U) Negative NEGATIVE [facility] Nitrite Ql (U) Negative NEGATIVE [facility] Protein Ql (U) Negative NEG/TRACE [facility] Leukocytes [#/volume] correc jovani for nucleated erythrocytes in Blood by Automated counon 04-19-2024 WBC corrected for nucl RBC Auto (Bld) [#/Vol] 12.0 10 3/uL High 4.0-11.0 [facility] Lymphocytes Auto (Bld) [#/Vo l]on 04-19-2024 Lymphocytes (Bld) [#/Vol] 1.0 10 3/uL Low 1.2-3.8 [facility] Lymphocytes/100 WBC Auto (Bl d)on 04-19-2024 Lymphocytes/100 WBC (Bld) 7.9 % Low 20.5-60.0 [facility] MCH Auto (RBC) [Entitic mass ]on 04-19-2024 MCH (RBC) [Entitic mass] 28.5 pg 25.9-34.0 [facility] MCHC Auto (RBC) [Mass/Vol]on 04-19-2024 MCHC (RBC) [Mass/Vol] 33.2 g/dL 29.9-35.2 [facility] MCV Auto (RBC) [Entitic vol] on 04-19-2024 MCV (RBC) [Entitic vol] 86.0 fL 80.0-94.0 [facility] Monocytes Auto (Bld) [#/Vol] on 04-19-2024 Monocytes (Bld) [#/Vol] 1.1 10 3/uL High 0.3-0.8 [facility] Monocytes/100 WBC Auto (Bld) on 04-19-2024 Monocytes/100 WBC (Bld) 9.0 % 1.7-12.0 [facility] Neutrophils Auto (Bld) [#/Vo l]on 04-19-2024 Neutrophils (Bld) [#/Vol] 9.8 10 3/uL High 1.4-6.5 [facility] Neutrophils/100 WBC Auto (Bl d)on 04-19-2024 Neutrophils/100 WBC (Bld) 81.8 % High 43.0-75.0 [facility] No Panel Informationon 04-19 Urine Microscopic Review NO [facility] Urine Occult Blood Negative NEGATIVE [facility] Eosinophils # (Auto) 0.1 10 3/uL 0.0-0.7 [facility] Immature Granulocyte # (Auto) 0.03 10 3/uL 0.00-0.03 [facility] Troponin I High Sensitivity 4.5 pg/mL 4.0-76.1 [facility] Comment on above: CUT-OFF POINTS HAVE BEEN ESTABLISHED BASED ON THE FOURTHUNIVERSAL DEFINITION OF MYOCARDIAL INFARCTION. THE UPPERREFERENCE LIMIT (URL) OF TROPONIN, DEFINED THE 99THPERCENTILE OF cTnI DISTRIBUTION IN A REFERENCE POPULATION,HAS BEEN CONFIRMED THE DECISION THRESHOLD FOR MIDIAGNOSIS.99TH PERCENTILE = 76.2 PG/MLNOTE: HIGH-SENSITIVITY TROPONIN ASSAY IS NOT INTENDED TO BEUSED IN ISOLATION BUT SHOULD BE INTERPRETED IN CONJUNCTIONWITH OTHER DIAGNOSTIC AND CLINICAL INFORMATION. Platelet mean volume Auto (B ld) [Entitic vol]on 04-19-2024 Platelet mean volume (Bld) [Entitic vol] 9.4 fL Low 9.5-13.5 [facility] Platelets Auto (Bld) [#/Vol] on 04-19-2024 Platelets (Bld) [#/Vol] 245 10 3/uL 150-450 [facility] RBC Auto (Bld) [#/Vol]on RBC (Bld) [#/Vol] 5.08 10 6/uL 4.70-6.10 [facility] Serum or plasma albumin/glob ulin mass ratioon 04-19-2024 Albumin/Globulin [Mass ratio] 1.2 {ratio} [facility] Serum or plasma anion gap de terminationon 04-19-2024 Anion gap [Moles/Vol] 12.2 mmol/L [facility] LIPID PROFILEon 03-20-2021 CHOL-HDL RATIO NORM SEE BELOW Normal [facility] Comment on above: Result Comment: 3.3 - 4.4 LOW RISK 4.4 - 7.1 AVERAGE RISK 7.1 - 11.0 MODERATE RISK >11.0 HIGH RISK Performed By: #### L VALENTINE PSAD #### [facility] [address], [place] [address] Luis Eduardo Ada Cholesterol [Mass/Vol] 129 mg/dL Normal <=200 [facility] Comment on above: Performed By: #### L IPAUSTYN PSAD #### [facility] [address], [place] [address] Luis Eduardo Ada Cholesterol in HDL [Mass/Vol] 40 mg/dL Normal [facility] Comment on above: Performed By: #### L IPID, PSAD #### [facility] [address], [place] [address] Luis Eduardo Ada Cholesterol in LDL [Mass/Vol] 68.4 mg/dL Normal [facility] Comment on above: Performed By: #### L VALENTINE PSAD #### [facility] [address], [place] [address] Luis Eduardo Ada Cholesterol.total/Cho lesterol in HDL [Mass ratio] 3.2 {ratio} Normal [facility] Comment on above: Performed By: #### L VALENTINE PSAD #### [facility] [address], [place] [address] Luis Eduardo Ada HDL NORMAL > or = 60 mg/dl - LO W CARDIOVASCULAR RISK <40 mg/dl - HIGH CARDIOVASCULAR RISK Normal [facility] Comment on above: Performed By: #### L VALENTINE PSAD #### [facility] [address] [place] [id number] Luis Eduardo Ada LDL CALC NORMAL SEE BELOW Normal [facility] Comment on above: Result Comment: <100 mg/dl OPTIMAL 100 - 129 mg/dl NEAR OR ABOVE OPTIMAL 130 - 159 mg/dl BORDERLINE HIGH 160 - 189 mg/dl HIGH >190 mg/dl VERY HIGH Performed By: #### L VALENTINE PSAD #### [facility] [address], [place] [address] Luis Eduardo Ada Triglyceride [Mass/Vol] 103 mg/dL Normal <=150 [facility] Comment on above: Performed By: #### L VALENTINE PSANallely #### [facility] [address], [place] [address] Luis Eduardo Ada VLDL CALC 20.6 mg/dL Normal [facility] Comment on above: Performed By: #### L VALENTINE PSANallely #### [facility] [address], [place] [address] Luis Eduardo Ada Vital Signs Date Time Vital Sign Value Performing Clinician Cris rg 09-10-2024 14:28-0500 Body height 177.8 cm [facility] 09-10-2024 14:28-0500 Body mass index (BMI) [Ratio] 32.8 kg/m2 [facility] 09-10-2024 [id number] Body weight 103.87 kg [facility] 09-10-2024 [id number] Diastolic blood pressure 81 mm[Hg] [facility] 09-10-2024 14:28-0500 Heart rate 61 /min [facility] 09-10-2024 14:28-0500 Systolic blood pressure 164 mm[Hg] [facility] 05-04-2024 13:51-0400 Body height 177.8 cm Patricia Celis DO Work Phone: [facility] 05-04-2024 13:51-0400 Body mass index (BMI) [Ratio] 30.99 kg/m2 Patricia Celis DO Work Phone: [facility] 05-04-2024 13:51-0400 Body weight 97.98 kg Patricia Celis DO Work Phone: [employer] 05-04-2024 13:51-0400 Diastolic blood pressure 91 mm[Hg] Patricia Celis DO Work Phone: [facility] 05-04-2024 13:51-0400 Systolic blood pressure 174 mm[Hg] Patricia Celis DO Work Phone: [facility] Encounters Encounter Date Encounter Type Care Provider Facility Start: 09-10-2024 Patient encounter status [facility] Start: 09-10-2024 End: 09-10-2024 ambulatory [facility] Work Phone: Start: 09-10-2024 End: 09-10-2024 Encounter for general adult medical examination without abnormal findings [facility] Start: 09-10-2024 End: 09-10-2024 Patient encounter procedure [facility] Work Phone: Start: 05-20-2024 ambulatory Patricia DE LOS SANTOS Facility :[facility] Start: 05-05-2024 End: 05-05-2024 Orders Only [facility] Comment on above: Choledocholithiasis (Primary Dx) Start: 05-04-2024 End: 05-04-2024 ambulatory PATRICIA CELIS [facility] Start: 05-04-2024 End: 05-04-2024 Postop follow up visit related to original px Patricia Celis DO Work Phone: [facility] General Surgery Comment on above: Obstructive jaundice (Primary Dx); Incarcerated umbilical hernia; Calculus of gallbladder with acute cholecystitis and obstruction Start: 05-01-2024 End: 05-01-2024 Orders Only Not In System Ref Prov [facility] Start: 04-30-2024 End: 04-30-2024 Patient encounter procedure Patricia DE LOS SANTOS [facility] [place] Start: 04-30-2024 End: 04-30-2024 ambulatory Patricia DE LOS SANTOS Facility:[facility] Start: 04-29-2024 End: 04-29-2024 [facility] Comment on above: new consult (Obstruc tive jaundice w/transaminitis) Start: 04-29-2024 ambulatory LISETTE CASTILLO [facility] Start: 04-28-2024 End: 04-30-2024 Evaluation and management of inpatient [facility] Start: 04-27-2024 ambulatory Patricia DE LOS SANTOS Facility:[facility] Start: 04-27-2024 Non-patient / Non-visit DO Adrian cliff Celis Work Phone: [facility] Physician [facility] Work Phone: Start: 04-26-2024 End: 04-26-2024 ambulatory Patricia Celis [facility] Work Phone: Start: 04-26-2024 End: 04-26-2024 Departed Referred DO Patricia Ceils Work Phone: [facility] Start: 04-26-2024 Non-patient / Non-visit DO Adrian cliff Celis Work Phone: [facility] Physician [facility] Work Phone: Start: 04-25-2024 Non-patient / Non-visit DO Adrian cliff Batistas Work Phone: [facility] Work Phone: Start: 04-24-2024 Non-patient / Non-visit DO Adrian Celis Work Phone: [facility] Work Phone: Start: 04-20-2024 ambulatory Patricia MAGALI Facility:[facility] Start: 04-19-2024 Non-patient / Non-visit DO Adrian Celis Work Phone: [facility] Work Phone: Start: 03-20-2021 End: 03-21-[address] LISETTE CASTILLO Facility:[facility] Start: 12-29-2020 End: 12-30-2020 ambulatory EARNEST DIETZ Facility:[facility] Start: 12-09-2020 End: 12-10-[address] MADRID LISTED REQUEST Facility: Procedures Date Procedure Procedure Detail Performing Clinician Start: 04-29-2024 Adult depression scr eening assessment Not Ref Prov Start: 04-27-2024 Level i surg patholo gy gross examination only Not In System Ref Prov Start: 04-25-2024 MULTIPLE LABS Not In Sy stem Ref Prov Start: 03-20-[address] MADRID L ISTED REQUEST Comment on above: Performed By: #### L IPID, PSAD #### [facility] [address] [place] [address] Luis Eduardo Caballero Start: 10-19-2016 cysto bilateral retrogrades rt semi rigid ureteroscopy rt holmium laser lithotripsy rt j stent Patricia CUELLOL Appendectomy Patricia CUELLOL Colonoscopy Patricia NILL History of arthrosco py of knee joint Patricia NILL Comment on above: Left Plan of Treatment Date Care Activity Detail Author Start: 10-10-2026 DTaP,Tdap and Td Vaccines (2 - Td or Tdap) DTaP,Tdap and Td Vaccines (2 - Td or Tdap) [facility] Start: 05-04-2025 Adult BMI Screening Adult BMI Screening [facility] Start: 05-04-2025 Tobacco Screening Tobacco Screening [facility] Start: 04-30-2025 Adult BMI Screening Adult BMI Screening [facility] Start: 04-29-2025 Depression Screening Depression Screening [facility] Start: 04-29-2025 Tobacco Screening Tobacco Screening [facility] Start: 06-02-2024 End: 05-05-2025 Liver panel Liver panel Lab Routine Choledocholithiasis Expected: 06/02/2024, Expires: 05/05/2025 [facility] Work Phone: Comment on above: Expected: 06/02/2024, Expires: Start: 05-10-2024 Influenza vaccination Influenza Vaccine [facility] Start: 05-04-2024 End: 05-04-2024 Patient encounter procedure 05/04/2024 1:45 PM EDT Office Visit [facility] [address] [place], [place] [id number] [place] [address] [place], [place] [id number] [facility] Start: 05-10-2023 COVID-19 Vaccine ( season) COVID-19 Vaccine ( season) [facility] Start: 2021 Fall Risk Screening Fall Risk Screening [facility] Start: 1974 Adult BMI Follow Up Plan Adult BMI Follow Up Plan [facility] Start: 1974 Adult BMI Screening Adult BMI Screening [facility] Start: 1968 Depression Screening Depression Screening [facility] Start: 1968 Tobacco Screening Tobacco Screening [facility] Start: 1955 Medicare Annual Wellness Visit Medicare Annual Wellness Visit [facility] Comprehensive metabolic 2000 panel - Serum or Plasma [facility] Immunizations Immunization Date Immunization Notes Care Provider Fa cility 07-12-2022 Influenza Vaccine, Quadrivalent, Adjuvanted Not Ref Prov [facility] 07-12-2022 influenza virus vaccine, unspecified formulation DO Patricia Celis Work Phone: [facility] 07-12-2022 Pfizer/Comirnaty, Pediatric Age 5-11 DO Patricia Celis Work Phone: [facility] 07-12-2022 SARS-CoV-2 (COVID-19 ) [id number] Patricia DE LOS SANTOS [facility] 02-19-2022 Pneumococcal Conjuga te 20-valent Not Ref Prov [facility] 08-24-2021 COVID-19 mRNA, Comirnaty (Pfizer) DO Patricia Celis Work Phone: [facility] 08-24-2021 Influenza Vaccine, Quadrivalent, Adjuvanted Not Ref Prov [facility] 08-24-2021 influenza virus vaccine, unspecified formulation DO Patricia Celis Work Phone: [facility] 12-29-2020 SARS-CoV-2 (COVID-19 ) mRNA BNT-162b2 vax Patricia DE LOSS ANTOS [facility] 12-09-2020 SARS-CoV-2 (COVID-19 ) mRNA BNT-162b2 vax Patricia DE LOS SANTOS [facility] 07-07-2020 influenza virus vaccine, unspecified formulation DO Patricia Celis Work Phone: [facility] 07-07-2020 influenza, injectabl e, quadrivalent, preservative free Not Ref Prov [facility] 11-17-2019 zoster vaccine recombinant Not Ref Prov [facility] 09-18-2019 Influenza, injectabl e, Madin Commodore Canine Kidney, preservative free, quadrivalent Not Ref Prov [facility] 09-18-2019 zoster vaccine recombinant Not Ref Prov [facility] 10-10-2016 tetanus toxoid, redu chito diphtheria toxoid, and acellular pertussis vaccine, adsorbed Not Ref Prov [facility] 10-10-2016 zoster vaccine, live Not Ref Prov [facility] Payers Date Payer Category Payer Medicare [employer] [place] [employer] MEDICARE ADVANTAGE [id number] 2023-Present [phone] [address] [place] [address] [id number] 2023 Medicare [id number] [address] [employer] [id number] 2017-Present [phone] [address] [place] [address] [id number] 2017 Unknown [id number] 1959 Self-pay 1955 Unknown [id number] 7 1956 Unknown [id number] 7 1956 Unknown [id number] 86 1956 Unknown [id number] 86 1956 Unknown [id number] [id number] 86 1956 Unknown [id number] 86 1956 Unknown [id number] [id number] 86 1956 Unknown [id number] [id number] 86 1956 Unknown [id number] [id number] 86 1956 Unknown [id number] [id number] 86 1956 Unknown [id number] [id number] 86 1956 Unknown [id number] [id number] 86 Unknown [id number] [id number] 3 Unknown [id number] [id number] 3 Unknown [id number] 3 Unknown [facility] [id number] Social History Date Type Detail Facility [facility] Work Phone: Start: 1955 Sex Assigned At Male [facility] Tobacco smoking status No Smokin g Status Entered [facility] [place] Start: 02-18-2019 End: 10-20-2020 Sex Assigned At Male [facility] Start: 09-10-2024 Sex Male (finding) [facility] Start: 02-18-2019 End: 10-20-2020 History of Social function [facility] Start: 1955 Sex assigned at Not on file P [facility] Start: 04-29-2024 [facility] tobacco [facility] Start: 04-29-2024 Tobacco use and exposure Smokeless tobacco non-user [facility] Start: 04-29-2024 End: 05-04-2024 Alcoholic beverage intake Current drinker of alcohol (finding) [facility] Has the [employer], [employer], or water [employer] threatened to shut off services in your home in past 12Mo No [facility] How often to you hav e a drink containing alcohol? 2-3 time sa week [facility] How many standard drinks containing alcohol do you have on a typical day? 1 or 2 [facility] How often do you hav e 6 or more drinks on 1 occasion? Never [facility] Goals Date Patient Goal Desired Activity /State Personal health goal Comment on above: Formatting of this n ote might be different from the original. Evaluation of progress towards goal: Progress towards discharge. Clinical Notes 04-29-2024 to 05-04-2024 Patricia Celis, DO - 05/04/2024 1:45 PM EDTTelephone Encounter - Sabrina Duong - 04/29/2024 6:26 AM EDTTelephone Encounter - Sabrina Duong - 04/29/2024 6:26 AM EDT Note Date & Type Note Facility 05-04-2024 History of Presen t illness Narrative Images from the original note were not included. [facility] [address] [facility] [id number] Progress NOTE CHIEF COMPLAINT Chief Complaint Patient presents with POST-OP VISIT [facility] RICH PERFORMED 04/26 F/U FROM [facility] ERCP DONE 04/29/24 Mackenzie Wood is a 68 y.o. male post hospitalization for gallbladder removal and open umbilical hernia repair at the [facility] on 04/26/2024 who was then transferred to [place] for an ERCP which he had last Saturday and they retrieved 1 stone. He has been doing great since that time. He was discharged the following day. Denies any complaints. MEDICATION Current Outpatient Medications: acetaminophen (TYLENOL EXTRA STRENGTH) 500 mg tablet, Take 1 tablet (500 mg total) by mouth every 6 (six) hours as needed for pain., Disp: 30 tablet, Rfl: 0 lisinopriL (PRINIVIL,ZESTRIL) 40 mg tablet, Take 1 tablet (40 mg total) by mouth in the morning. Indications: high blood pressure., Disp: , Rfl: metoprolol succinate XL (TOPROL XL) 50 mg 24 hr tablet, Take 1 tablet (50 mg total) by mouth in the morning. Indications: high blood pressure., Disp: , Rfl: omeprazole (PriLOSEC OTC) 20 mg EC tablet, Take 1 tablet (20 mg total) by mouth in the morning. Indications: gastroesophageal reflux disease., Disp: , Rfl: sennosides-docusate sodium (SENOKOT-S) 8.6-50 mg, Take 2 tablets by mouth nightly as needed for constipation. Please take Senokot for constipation if you are taking opioid pain medication., Disp: 14 tablet, Rfl: 0 simvastatin (ZOCOR) 40 mg tablet, Take 1 tablet (40 mg total) by mouth nightly Indications: excessive fat in the blood., Disp: , Rfl: spironolactone (ALDACTONE) 25 mg tablet, Take 1 tablet (25 mg total) by mouth in the morning. Indications: high blood pressure., Disp: , Rfl: ALLERGY Allergies Allergen Reactions Penicillins Rash MEDICAL HISTORY Past Medical History: Diagnosis Date Allergic 1982 Penicillin Arthritis GERD (gastroesophageal reflux disease) Hyperlipidemia Hypertension SURGICAL HISTORY Past Surgical History: Procedure Laterality Date APPENDECTOMY CHOLECYSTECTOMY COLONOSCOPY 2006 ENDOSCOPIC RETROGRADE CHOLANGIO-PANCREATOGRAPHY BALLOON SWEEP EXTRACTION N/A 04/29/2024 Performed by [facility] MD at [facility] ENDOSCOPIC ULTRASOUND (UPPER) N/A 04/29/2024 Performed by [facility] at [facility] HERNIA REPAIR SOCIAL HISTORY Social History Socioeconomic History Marital status: Spouse name: Not on file Number of children: Not on file Years of education: Not on file Highest education level: Not on file Occupational History Not on file Tobacco Use Smoking status: Never Smokeless tobacco: Never Vaping Use Vaping status: Never Used Substance and Sexual Activity Alcohol use: Yes Alcohol/week: 3.0 standard drinks of alcohol Types: 3 Cans of beer per week Drug use: Never Sexual activity: Defer Other Topics Concern Not on file Social History Narrative Not on file Social Determinants of Health Financial Resource Strain: Not on file Food Insecurity: No Food Insecurity (04/29/2024) Hunger Screening Food Insecurity - Worry: Never True Food Insecurity - Inability: Never True Transportation Needs: No Transportation Needs (04/29/2024) PRAPARE - Transportation Lack of Transportation (Medical): No Lack of Transportation (Non-Medical): No Physical Activity: Not on file Stress: Not on file Social Connections: Not on file Interpersonal Safety: Not At Risk (04/29/2024) Humiliation, Afraid, Rape, and Kick questionnaire Fear of Current or Ex-Partner: No Emotionally Abused: No Physically Abused: No Sexually Abused: No Housing Instability: Low Risk (04/29/2024) Housing Instability Housing Instability: No FAMILY HISTORY Family History Problem Relation Age of Onset Diabetes Mother No Known Problems Father REVIEW OF SYSTEMS: Constitutional: Denies fevers, denies recent illnesses. Rest of ROS negative except as above PHYSICAL EXAM Constitutional: He is oriented to person, place, and time. Vital signs are normal. He appears well-developed and well-nourished. Abdomen soft obese nontender with incisions clean dry and intact and mild bruising around the umbilical incision noted for 4-5 cm Neurological: He is alert and oriented to person, place, and time. Skin: Skin is warm, dry and intact. Psychiatric: He has a normal mood and affect. His speech is normal and behavior is normal. Cognition and memory are normal. IMPRESSION Status post robotic cholecystectomy with open umbilical hernia repair in [place] and ERCP in [place] with retrieval of common duct stone ASSESSMENT & PLAN May follow up p.r.n. with me; recommend no lifting greater than 5 lb until May 25 at the earliest may swim only but no golf or bowling until after May 25 as long as no pain. He may follow up p.r.n.. Evaluation included: Preparing to see the patient (e.g., review of tests) Obtaining and/or reviewing separately obtained history Performing a medically appropriate examination and/or evaluation Counseling and educating the patient/family/caregiver Referring and communicating with other health healthcare representative No primary diagnosis found. Patricia Celis DO This note was created with the assistance of a speech recognition program. While intending to generate a timely document that accurately reflects the content of the visit, no guarantee can be provided that every grammatical or spelling mistake has been or will be identified or corrected. Thank you for your understanding. documented in this encounter [facility] 04-29-2024 Miscellaneous Notes Contract: [id number] - new consult for Obstructive jaundice w/transaminitis Contract: [id number] - Sent Secure Chat to Jessi Shepherd documented in this encounter [facility] 04-29-2024 Telephone encounter Note Contract: [id number] - new consult for Obstructive jaundice w/transaminitis [facility] 04-29-2024 Telephone encounter Note Contract: [id number] - Sent Secure Chat to Jessi Shepherd [facility] Evaluation + Plan note No data available for this section [facility] [place] Evaluation note No assessment inform ation available [facility] Work Phone: Evaluation note Diagnosis Onset Date Resolution Essential (primary) hypertension acute September 10 2:21pm Screening for prostate cancer acute September 10 2:21pm Wellness examination acute 2024 2:21pm [facility] Work Phone: Evaluation note* Diagnosis Obstructive jaundice- Primary Incarcerated umbilical hernia Umbilical hernia with obstruction Calculus of gallbladder with acute cholecystitis and obstruction [facility] Diagnosis Choledocholithiasis- Primary Calculus of bile duct without mention of cholecystitis or obstruction documented [facility] this encounter [facility] No data available for this section [facility] [place] InstructionsNot on filedocumented in this encounter [facility] System[facility] on filedocumented in this encounter [facility] filedocumented in this encounter [facility]ructionsNot on filedocumented in this encounter [facility] No data available for this section [facility] [place] Summary Purpose Family History No Family History Records Found No data available for this section No Family History Records FoundNo Family History Records FoundNo Family History Records FoundNo Family History Records Found Advance Directives Advance Directive Response Recorded Date/ Time Advance Directives No September 10, 2024 2:18pm Date Activated Date Inactivated Comments 04/28/2024 10:11 PM Date Activated Date Inactivated Comments 04/28/2024 10:11 PM 04/30/2024 6:43 PM Chief Complaint and Reason for Visit Chief Complaint Admit Date wellness/med refills September 10, 2024 2 :21pm Reason for Visit Admit Date Essential (primary) hypertension September 10, 2024 2:21pm Screening for prostate cancer September 2:21pm Wellness examination September 10, 2024 2 :21pm Additional Source Comments (unrecognized sect ion and content) No Status Records FoundNo Status Records FoundNo Status Records FoundNo Status Records FoundNo Status Records Found INFORMATION SOURCE (unrecogn ized section and content) DATE CREATED AUTHOR 03/21/2021 [facility] [place] [facility] DATE CREATED AUTHOR AUTHOR'S ORGANIZ ATION 05/02/2024 [facility] DATE CREATED AUTHOR AUTHOR'S ORGANIZ ATION 05/03/2024 [facility] DATE CREATED AUTHOR AUTHOR'S ORGANIZ ATION 05/06/2024 [facility] DATE CREATED AUTHOR AUTHOR'S ORGANIZ ATION 05/06/2024 [facility] Care Teams (unrecognized sec tion and content) Team Status: Active Member Role Status Dates Lisette Castillo MD Primary Care Provider Active Start: April 19, 2024 Mechelle Lujan PA-C Attending Provider Active Start : April 19, 2024 Team Status: Active Member Role Status Dates Lisette Castillo MD Primary Care Provider Active Start: April 24, 2024 Garland Wood PA-C Attending Provider Active S tart: April 24, 2024 Team Status: Active Member Role Status Dates Lisette Castillo MD Primary Care Provider Active Start: April 25, 2024 Patricia Celis DO Attending Provider Active Start: April 25, 2024 Team Status: Active Member Role Status Dates Lisette Castillo MD Primary Care Provider Active Start: April 26, 2024 Shaikh Lachelle MD Attending Provider Active Sta rt: April 26, 2024 Team Status: Inactive Member Role Status Dates Patricia Celis DO Attending Provider Active Start: April 26, 2024 End: April 26, 2024 Team Status: Active Member Role Status Dates Lisette Castillo MD Primary Care Provider Active Start: April 27, 2024 Shaikh Lachelle MD Attending Provider Active Sta rt: April 27, 2024 Team Status: Active Member Role Status Dates Lisette Castillo MD Primary Care Provider Active Team Status: Inactive Member Role Status Dates Lisette Castillo MD Primary Care Provide r, Attending Provider Active Start: September 10, 2024 End: September 10, 2024 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 Start Date End Date Lisette Castillo MD [address] [place] [address] PCP - General 03/03/18 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 Start Date End Date Lisette Castillo MD [address] [place] [address] PCP - General 03/03/18 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 Start Date End Date Lisette Castillo MD [address] [place] [address] PCP - General 03/03/18 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.] BE BASED ON THE PRIMARY CLINICAL RECORDS. [facility]. provides no warranty or guarantee of the accuracy or completeness of information in this document.
[2025-02-04 08:51] LABS: Anion Gap 12.8; BUN Creatinine Ratio 18.5; Carbon Dioxide 31.3 mmol/L (21.0-32.0); Chloride 105 mmol/L (98-107); Estimated GFR (African America >60 (>=60 mL/min/1.73m^2); Estimated GFR (Non-African Ame 58 (>=60 mL/min/1.73m^2); Glucose 107 mg/dL (74-106); Potassium 4.1 mmol/L (3.5-5.1); Sodium 145 mmol/L (136-145)
== END 2025-02-04 08:10 | disposition home or self-care (01) ==
LOC: LAB 08:12
PROVIDERS: PCP Family Medicine; Visit Provider Family Medicine
DX: N18.31 Chronic kidney disease, stage 3a (principal)
CPT/HCPCS: 36415; 80048